=== PATIENT | male | born 1975 | race Two or more races ===

== ENCOUNTER 2020-10-28 16:02 | Emergency (ER) | payer SELFPAY ==
[2020-10-28 16:14] VITALS: BP 143/88; PULSE 96; RESP 16; TEMP 36.6; O2SAT 98; BMI 31.9
--- NOTE | 2020-10-28 17:51 | ED_ITS ---
HPI - General Adult General Chief complaint: General Medical Stated complaint: toe nail inj Time Seen by Provider: 10/28/20 17:51 History of Present Illness HPI narrative: Patient complains of left toe pain after arm ripping off his toenail while running, no other injury Related Data Allergies Allergy/AdvReac Type Severity Reaction Status Date / Time No Known Allergies Allergy Unverified 11/25/19 14:46 Review of Systems Review of Systems: Positive for left toenail pain Negative is no neck pain no back pain no numbness weakness or tingling no lacerations no joint pains Yes all other systems are reviewed and are negative [facility] Past Medical History Source: nursing notes reviewed Social History Social History Advance Directives: No Advance Directives Information Provided: No Physical Exam Vital Signs: Vital Signs: Last Vital Signs Temp 97.8 F 10/28/20 16:14 Pulse 96 10/28/20 16:14 Resp 16 10/28/20 16:14 BP 143/88 H 10/28/20 16:14 Pulse Ox 98 10/28/20 16:14 Body Mass Index 31.9 General appearance no distress Head is normocephalic atraumatic Neck is supple Respiratory no distress Extremities full range of motion x4 Left big toe has the distal aspect of the nail partially avulsed and it is loose, otherwise there is full range of motion in the toe it is neurovascular intact and there is no bony tenderness Course Course Course Narrative: Partially avulsed left toenail Anesthesia is 6 cc of 1% lidocaine digital block The loose piece of the toenail was bent back with a forceps and trimmed with scissors, the proximal part of the nail was attached normally and left in place and a dressing was applied Discharge Plan Discharge Clinical Impression: Nail avulsion Patient Disposition: Home, Self-Care Additional Instructions: The left toenail was partially torn off so I numbed up the toe and then removed all loose pieces of the nail, a new nail should grow from underneath Keep bandaged and change the bandage every day Return any time for redness swelling pain any worse condition any concerns Follow with lead programmer as needed Referrals: Jose Manuel Hernandez DPM [Physician] - 2 days Stand Alone Forms: Work/School Release
[2020-10-28] MEDS: Lidocaine HCl 1 % MPF 5 ML VIAL SUBCUT ×2 (18:33)
== END 2020-10-28 18:59 | disposition home or self-care (01) ==
PROVIDERS: Emergency Provider Internal Medicine
DX: S91.202A Unspecified open wound of left great toe with damage to nail, initial encounter (principal); X50.3XXA Overexertion from repetitive movements, initial encounter; Y93.02 Activity, running; Y92.9 Unspecified place or not applicable; Y99.9 Unspecified external cause status
CPT/HCPCS: 11730; 99283; 99284

== ENCOUNTER 2020-11-26 02:32 | Emergency (ER) | payer OTHER, BC, SELFPAY ==
--- NOTE | ~2020-11-26 | XR_ITS ---
EXAMINATION: XR CHEST XR RIBS, RIGHT CLINICAL INFORMATION: Right rib injury COMPARISON: 11/22/2017 TECHNIQUE: AP and lateral views of the chest. 3 views of the right ribs. FINDINGS: Lung volumes are symmetric. No focal consolidation is seen. No evidence of pneumothorax, pleural effusion, or pulmonary edema. The cardiomediastinal contour is unremarkable. No displaced rib fracture is seen. XR/XR ribs RT 2V IMPRESSION: No acute findings identified.
--- NOTE | ~2020-11-26 | XR_ITS ---
EXAMINATION: XR CHEST XR RIBS, RIGHT CLINICAL INFORMATION: Right rib injury COMPARISON: 11/22/2017 TECHNIQUE: AP and lateral views of the chest. 3 views of the right ribs. FINDINGS: Lung volumes are symmetric. No focal consolidation is seen. No evidence of pneumothorax, pleural effusion, or pulmonary edema. The cardiomediastinal contour is unremarkable. No displaced rib fracture is seen. XR/XR chest 2V IMPRESSION: No acute findings identified.
[2020-11-26 02:40] VITALS: BP 140/72; BP 145/94; PULSE 81; PULSE 87; RESP 16; TEMP 36.9; O2SAT 98; BMI 30.3
--- NOTE | 2020-11-26 02:45 | ED_ITS ---
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 weighing 225, and he heard a pop to his right ribs MD elicited complaint: back pain and back injury Onset (ago): hour(s) Timing: constant Severity: mild Quality: sharp Radiation: none Exacerbating factors: none Related Data Previous Rx's Medication Instructions Recorded naproxen 500 mg tablet (Naprosyn) 500 mg PO BID #20 tab 11/26/20 Allergies Allergy/AdvReac Type Severity Reaction Status Date / Time No Known Allergies Allergy Unverified 11/25/19 14:46 Review of Systems Constitutional: Constitutional: Reports no additional constitutional complaints Eyes: Eyes: Reports no additional eye complaints ENT: Denies dizziness Cardiovascular: Cardiovascular: Reports no additional cardiovascular complaints Respiratory: Respiratory: Reports as per HPI Gastrointestinal: Gastrointestinal: Reports no additional gastrointestinal complaints Musculoskeletal: Musculoskeletal: Reports no additional musculoskeletal complaints Integumentary/Breasts: Skin/Breast: Denies rash Neurologic: Reports system reviewed and no additional complaints, except as documented, Denies dizziness and Denies Sensory deficit (Neuro) Psychiatric: Psychiatric: Denies anxiety [facility] Social History Social History Advance Directives: No Physical Exam Vital Signs: Vital Signs: Last Vital Signs Temp 98.4 F 11/26/20 02:40 Pulse 87 11/26/20 02:40 Resp 16 11/26/20 02:40 BP 145/94 H 11/26/20 02:40 Pulse Ox 98 11/26/20 02:40 Body Mass Index 30.3 Const: General: healthy appearing Nutritional Appearance: average body habitus Orientation/consciousness: oriented to person and patient oriented x3 Limitations: no limitations HENMT: Head: Yes normal to inspection Ears: external ears normal General nose exam: Normal external nose present Mouth: Normal oral and palatal mucosa present and oropharynx normal Throat: Yes posterior oropharynx normal Eyes: General: appearance normal, both eyes and all related structures Neck: Other: supple Neck: Yes normal visual inspection Chest: Other: right chest tender to palpation no crepitance Resp: Auscultation: clear to auscultation bilaterally Cardio: Jugular venous distension: no JVD Rate: regular rate Rhythm: regular rhythm Heart sounds: S1 normal heart sound present and S2 normal heart sound present GI: Inspection: Yes normal to inspection Palpation (GI): Soft to palpation, nontender and No hepatosplenomegaly present Auscultation: normal bowel sounds : General: Yes no CVA tenderness Back/Spine/Pelvis: Back: no CVA tenderness Skin: General skin exam: no rashes or lesions noted Neuro: General: oriented to person and patient oriented x3 Cranial nerves: Yes CN's II-XII intact bilaterally Motor exam (neuro): 5/5 motor strength present throughout Sensory Exam: No Sensory deficit (Neuro) Extrem: General: Yes normal to inspection Psych: Appearance: grossly normal Course Reevaluation(s) Reevaluation #1: no rib fractures or PTX, will dc on NSAIDS Time: 04:42 [facility] - Back Pain/Injury Imaging Data Chest x-ray: Radiologist's impression: IMPRESSION: No acute findings identified.? right ribs: Radiologist's impression: IMPRESSION: No acute findings identified.? Discharge Plan Discharge Clinical Impression: Atypical chest pain Chest wall muscle strain Qualifiers: Encounter type: initial encounter Qualified Code(s): S29.011A - Strain of musc le and tendon of front wall of thorax, initial encounter Patient Disposition: Home, Self-Care Instructions: Chest Wall Pain (ED) Prescriptions: New naproxen [Naprosyn] 500 mg tablet 500 mg PO BID Qty: 20 RF: 0 Referrals: Physician,Unknown [Primary Care Provider] - 5 days
[2020-11-26] MEDS: Ketorolac Tromethamine 60 MG/2 ML VIAL IM (02:56)
[2020-11-26 05:23] VITALS: BP 132/105; PULSE 72; O2SAT 98
== END 2020-11-26 05:26 | disposition home or self-care (01) ==
PROVIDERS: Emergency Provider Emergency Medicine
DX: R07.9 Chest pain, unspecified (principal); R07.81 Pleurodynia; Z79.899 Other long term (current) drug therapy
CPT/HCPCS: 71046; 71100; 96372; 99284; J1885

== ENCOUNTER → 2020-11-28 10:06 | Outpatient (BNVA) | payer OTHER, SELFPAY | PROVIDERS: Visit Provider Internal Medicine | DX: S29.011A Strain of muscle and tendon of front wall of thorax, initial encounter (principal); X50.3XXA Overexertion from repetitive movements, initial encounter; X50.1XXA Overexertion from prolonged static or awkward postures, initial encounter | CPT/HCPCS: 99203 ==

== ENCOUNTER → 2020-12-05 08:00 | Outpatient (BNVA) | payer OTHER, SELFPAY | PROVIDERS: Visit Provider Internal Medicine | DX: R07.89 Other chest pain (principal) | CPT/HCPCS: 99213 ==

== ENCOUNTER 2020-12-18 07:50 | Outpatient (REF) | payer OTHER, SELFPAY ==
--- NOTE | ~2020-12-18 | MR_ITS ---
EXAMINATION: MR ANGIOGRAPHY CHEST WITH CONTRAST CLINICAL INFORMATION: Pulling injury November 2020. Right-sided chest wall stabbing pain. COMPARISON: Previous right rib x-rays 11/26/2020. TECHNIQUE: The routine chest MRA protocol without and with contrast was performed. Magnevist 100 mL was administered. The images were reviewed and post processed on a dedicated 3-D workstation. FINDINGS: The lungs are clear. The mediastinum is normal. There is no pleural effusion or pleural thickening. No chest wall mass or enlarged axillary lymph nodes are seen. No abnormal signal in the chest wall or fluid collection is seen. There is a 1 x 1.5 cm probable right renal cyst. Images through the upper abdomen are otherwise unremarkable. Bony structures are unremarkable. MR/MR chest wo con IMPRESSION: No chest wall mass or abnormal signal seen.
== END 2020-12-18 07:51 | disposition home or self-care (01) ==
LOC: HO.MRI 07:50
PROVIDERS: Visit Provider Internal Medicine
DX: R07.9 Chest pain, unspecified (principal)
CPT/HCPCS: 71550

== ENCOUNTER → 2020-12-21 07:54 | Outpatient (BNVA) | payer OTHER, SELFPAY | PROVIDERS: Visit Provider Internal Medicine | DX: S29.011D Strain of muscle and tendon of front wall of thorax, subsequent encounter (principal); X58.XXXD Exposure to other specified factors, subsequent encounter; N28.9 Disorder of kidney and ureter, unspecified | CPT/HCPCS: 99213 ==

== ENCOUNTER → 2021-01-05 08:00 | Outpatient (BNVA) | payer OTHER, SELFPAY | PROVIDERS: Visit Provider Internal Medicine | DX: S29.012D Strain of muscle and tendon of back wall of thorax, subsequent encounter (principal); U09.9 Post COVID-19 condition, unspecified | CPT/HCPCS: 99213 ==

== ENCOUNTER → 2021-01-12 15:39 | Outpatient (BNVA) | payer OTHER, SELFPAY | PROVIDERS: Visit Provider Physician Assistant | DX: S29.011D Strain of muscle and tendon of front wall of thorax, subsequent encounter (principal); X58.XXXD Exposure to other specified factors, subsequent encounter | CPT/HCPCS: 99213 ==

== ENCOUNTER 2021-01-17 11:00 | Outpatient (RCR) | payer OTHER, SELFPAY ==
--- NOTE | 2021-01-05 14:39 | MHC.PT.EP ---
[facility] [place] Office [place] Office [place] Office [address] [facility] [address] [phone] F: [phone] F: [phone] F: [phone] F: [phone] Physical Therapy Plan of Care Date of Evaluation: Date of Surgery: Diagnosis: Chest wall strain Assessment: Pt is a 45yo M who presents to PT s/p getting injured at work on 11/26/20, involving his R arm getting pulled forward. He presents today with current impairments in pain in R ribs/serratus region, decreased thoracic ROM all planes, decreased R shoulder ROM, (+) TTP R rib intercostals and serratus anterior, and impaired posture. He is limited functionally by bending, twisting, coughing, prolonged sitting, and sleeping. He had CXR, rib xray and rib MRI which were all negative. His signs and symptoms may be consistent with a serratus strain. He is an excellent candidate for skilled PT services to address current impairments in order to facilitate return to PLOF. He will benefit from skilled PT services 2x/week for 4 weeks and will be reassessed at that time. Frequency and Duration: The patient will be seen 2x/week for 4 weeks Short Term Goals: Pt will be I with HEP to promote self management of symptoms Pt will improve thoracic rotation by 25% Penitentiary Goals: Pt will demonstrate full ROM throughout thoracic spine Pt will tolerate sitting > 30 min without pain Pt will demonstrate improvements in functional mobility as evidenced by statistically significant improvement in SPADI outcome measure Treatment Plan: Modalities to reduce pain, spasms and effusion. Manual therapy to restore motion and function. Therapeutic exercise to improve strength and flexibility. Neuromuscular re-education for posture and balance. Therapeutic activities to return to functional activities of daily living. Electronically signed by: Makenna Ascencio, PT, DPT Please sign and return to therapist. Thank you for your referral.
--- NOTE | 2021-01-26 11:38 | MHC.PT.DC ---
[facility] [place] Office [place] Office [place] Office [address] [facility] [address] [phone] F: [phone] F: [phone] F: [phone] F: [phone] Physical Therapy Discharge Report Diagnosis: Chest wall strain Date of Surgery: Date of Evaluation: 01/05/21 Date of Discharge: 01/26/21 Treatments to Date: 4 Cancellations to Date: No Shows to Date: 3 Discharge Status: Improved Function Independent with HEP Patient Elected to Stop Visit Non-compliance Discharge Summary: Pt'S LAST ATTENDED APPT WAS 01/17/21 AND HE DEMON SIGNIF PROGRESS W EXER, FUNCTIONAL MOB, POSTURE, AND HE NOTED DECR PAIN OVERALL- HE STATED HE WAS EAGER 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 Pt DID NOT DISPLAY ANY ADVERSE RESPONSES TO EXEXRCISES AND HE DEMON MORE NATURAL GAIT W UEs EASE/ SWING ON TM AND WAS ABLE TO PERFORM PROGRESSIVE EXER FOR IMPROVING MID BACK MOBILITY. WE WERE UNABLE TO PERFORM A REASSESSMENT Pt HAS NOT ATTENDED LAST FEW SCHED APPTS, AND HAS NOT RETURNED OUR PHONE CALLS. Electronically signed by: Kamilla Schmidt,PT Please sign and return to therapist. Thank you for your referral.
== END 2021-01-26 11:39 | disposition home or self-care (01) ==
LOC: HO.PT 11:00
PROVIDERS: Visit Provider Internal Medicine
DX: S29.011D Strain of muscle and tendon of front wall of thorax, subsequent encounter (principal)
CPT/HCPCS: 97110; 97140; 97161

== ENCOUNTER → 2021-01-22 07:55 | Outpatient (BNVA) | payer OTHER, SELFPAY | PROVIDERS: Visit Provider Internal Medicine | DX: S29.011D Strain of muscle and tendon of front wall of thorax, subsequent encounter (principal); X58.XXXD Exposure to other specified factors, subsequent encounter | CPT/HCPCS: 99213 ==

== ENCOUNTER → 2021-01-29 08:12 | Outpatient (BNVA) | payer OTHER, SELFPAY | PROVIDERS: Visit Provider Internal Medicine | DX: S29.011D Strain of muscle and tendon of front wall of thorax, subsequent encounter (principal); X58.XXXD Exposure to other specified factors, subsequent encounter | CPT/HCPCS: 99213 ==

== ENCOUNTER 2021-04-05 01:23 | Emergency (ER) | payer BC, SELFPAY ==
--- NOTE | ~2021-04-05 | XR_ITS ---
EXAMINATION: XR CHEST CLINICAL INFORMATION: Chest pain COMPARISON: 11/26/2020 TECHNIQUE: Frontal view of the chest was obtained. FINDINGS: Cardiac leads overlie the chest. The lungs are well expanded. There is no focal consolidation, edema, or effusion. No pneumothorax. The cardiomediastinal silhouette is within normal limits. No acute osseous abnormality. XR/XR chest 1V IMPRESSION: Clear lungs.
[2021-04-05 01:25] VITALS: BP 161/99; PULSE 77; RESP 18; TEMP 36.6; O2SAT 98; BMI 31.1
[2021-04-05 01:56] LABS: COVID-19 Test Negative (Negative); IDNOW Serial# 9DD0AD1C
[2021-04-05 02:15] VITALS: BP 159/102; PULSE 76; RESP 12; O2SAT 100
--- NOTE | 2021-04-05 02:20 | ECG_ITS ---
Test Reason : CHEST PAIN Blood Pressure : / mmHG Vent. Rate : 070 BPM Atrial Rate : 070 BPM P-R Int : 146 ms QRS Dur : 090 ms QT Int : 392 ms P-R-T Axes : 060 079 067 degrees QTc Int : 423 ms Normal sinus rhythm with sinus arrhythmia Normal ECG When compared with ECG of 26-FEB-2013 10:08, No significant change was found Referred By: Generic ED Physician Electronically Signed By:HANNA UMANA MD
--- NOTE | 2021-04-05 02:23 | ED_ITS ---
HPI - General Adult General Chief complaint: General Medical Stated complaint: chest pain Time Seen by Provider: 04/05/21 02:23 Source: patient Mode of arrival: ambulatory Limitations: no limitations History of Present Illness HPI narrative: Patient with chest pain intermittent for 3 days, with some shortness of breath and dizziness. Patient with no history of heart problems. No chest pain with exertion. Pain is substernal has some pleuritic nature to the pain Onset (ago): day(s) Radiation: non-radiation Severity: moderate Quality: aching Pain Consistency: intermittent Associated symptoms: nausea/vomiting and weakness Related Data Previous Rx's Medication Instructions Recorded naproxen 500 mg tablet (Naprosyn) 500 mg PO BID #20 tab 11/26/20 naproxen 500 mg tablet (Naprosyn) 500 mg PO BID #20 tab 04/05/21 Allergies Allergy/AdvReac Type Severity Reaction Status Date / Time No Known Allergies Allergy Unverified 11/25/19 14:46 Review of Systems Verdana 4l Constitutional: Verdana 4d Constitutional: Verdana 4d Verdana 4d Reports no additional constitutional complaints Verdana 4l Eyes: Verdana 4d Verdana 4d Eyes: Verdana 4d Reports no additional eye complaints Verdana 4l ENT: Verdana 4d Denies dizziness Verdana 4l Cardiovascular: Verdana 4d Cardiovascular: Verdana 4d Verdana 4d Reports no additional cardiovascular complaints Verdana 4l Respiratory: Verdana 4d Verdana 4d Respiratory: Verdana 4d Reports as per HPI Verdana 4l Gastrointestinal: Verdana 4d Gastrointestinal: Verdana 4d Verdana 4d Reports no additional gastrointestinal complaints Verdana 4l Musculoskeletal: Verdana 4d Musculoskeletal: Verdana 4d Verdana 4d Reports no additional musculoskeletal complaints Verdana 4l Integumentary/Breasts: Verdana 4d Skin/Breast: Verdana 4d Verdana 4d Denies rash Verdana 4l Neurologic: Verdana 4d Reports system reviewed and no additional complaints, except as documented, Denies dizziness and Denies Sensory deficit (Neuro) Verdana 4l Psychiatric: Verdana 4d Verdana 4d Psychiatric: Verdana 4d Denies anxiety PMFSH Social History Social History Advance Directives: No Physical Exam Verdana 4l Vital Signs: Verdana 4d Verdana 4d Vital Signs: Verdana 4d Verdana 4Bd Last Vital Signs Verdana 4d Escalation Engineer New 4d Escalation Engineer New 4d Temp 97.9 F 04/05/21 01:25 Escalation Engineer New 4d Pulse 20 L 04/05/21 03:04 Escalation Engineer New 4d Resp 12 04/05/21 02:15 BP 162/105 H 04/05/21 03:04 Pulse Ox 100 04/05/21 02:15 BMI result Body Mass Index 31.1 Const: General: healthy appearing Nutritional Appearance: average body habitus Orientation/consciousness: oriented to person and patient oriented x3 Limitations: no limitations HENMT: Head: Yes normal to inspection Ears: external ears normal General nose exam: Normal external nose present Mouth: Normal oral and palatal mucosa present and oropharynx normal Throat: Yes posterior oropharynx normal Eyes: General: appearance normal, both eyes and all related structures Neck: Other: supple Neck: Yes normal visual inspection Chest: Other: reproducible pain on palpation to sternum Resp: Auscultation: clear to auscultation bilaterally Cardio: Jugular venous distension: no JVD Rate: regular rate Rhythm: regular rhythm Heart sounds: S1 normal heart sound present and S2 normal heart sound present GI: Inspection: Yes normal to inspection Palpation (GI): Soft to palpation, nontender and No hepatosplenomegaly present Auscultation: normal bowel sounds : General: Yes no CVA tenderness Back/Spine/Pelvis: Back: no CVA tenderness Skin: General skin exam: no rashes or lesions noted Neuro: General: oriented to person and patient oriented x3 Cranial nerves: Yes CN's II-XII intact bilaterally Motor exam (neuro): 5/5 motor strength present throughout Sensory Exam: No Sensory deficit (Neuro) Extrem: General: Yes normal to inspection Psych: Appearance: grossly normal Course Reevaluation(s) Reevaluation #1: Patient with a few days of chest pain, currently has a normal EKG and troponin and ddimer. No evidence of pathology on CXR. He has reproducible pain on chest palpation, will dc on NSAIDS and have patient follow up with PMD Time: 04:28 Medical Decision Making Lab Data Result diagrams: 04/05/21 02:29 04/05/21 02:29 Labs: Lab Results 01/04/05/21 04/05/21 Range/Units 01:39 02:29 02:29 WBC 8.5 (4.8-10.8) X10*3/uL RBC 4.45 L (4.60-5.80) X10*6/uL Hgb 13.6 L (14.0-18.0) g/dl Hct 40.8 L (42.0-52.0) % MCV 91.7 (80.0-98.0) fL MCH 30.6 (27.0-33.0) pg MCHC 33.3 (31.0-36.0) g/dl RDW 13.2 (11.0-16.0) % Plt Count 321 (160-400) X10*3/uL MPV 9.1 L (9.4-12.4) fL Immature Gran % (Auto) 0.2 (0.0-0.4) % Neut % (Auto) 55.1 (45-73) % Lymph % (Auto) 34.8 (20-40) % [place] % (Auto) 8.0 (2-11) % Eos % (Auto) 1.4 (0-4) % Baso % (Auto) 0.5 (0-2) % Lymph # (Auto) 3.0 (1.2-4.9) X10*3/uL [place] # (Auto) 0.7 (0.1-1.2) X10*3/uL Eos # (Auto) 0.1 (0.0-0.4) X10*3/uL Baso # (Auto) 0.0 (0.0-0.2) X10*3/uL Abs Immat Gran (auto) 0.02 (0.00-0.03) X10*3/uL Absolute Neuts (auto) 4.7 (2.0-8.3) x10*3/uL Absolute Nucleated RBC 0.000 (0.0-0.012) X10*3/uL Nucleated RBC % (auto) 0.0 (0.0-0.2) /100WBC D-Dimer High Sensitivty NG/ML Sodium 140 (135-145) mmol/L Potassium 3.6 (3.3-5.1) mmol/L Chloride 104 (96-108) mmol/L Carbon Dioxide 25 (22-29) mmol/L Anion Gap 15 (12-20) BUN 15 (9-16) mg/dL Creatinine 0.98 (0.5-1.4) mg/dL Estim Creat Clear Calc 96.6 Estimated GFR > 60 Random Glucose 91 (60-115) mg/dL Calcium 9.8 (8.4-10.2) mg/dL Troponin I High Sens (<3.5-35.0) ng/L COVID-19 (LEONARD) Negative (Negative) COVID-19 Clin Com See Note 04/05/21 04/05/21 Range/Units 02:29 02:30 WBC (4.8-10.8) X10*3/uL RBC (4.60-5.80) X10*6/uL Hgb (14.0-18.0) g/dl Hct (42.0-52.0) % MCV (80.0-98.0) fL MCH (27.0-33.0) pg MCHC (31.0-36.0) g/dl RDW (11.0-16.0) % Plt Count (160-400) X10*3/uL MPV (9.4-12.4) fL Immature Gran % (Auto) (0.0-0.4) % Neut % (Auto) (45-73) % Lymph % (Auto) (20-40) % [place] % (Auto) (2-11) % Eos % (Auto) (0-4) % Baso % (Auto) (0-2) % Lymph # (Auto) (1.2-4.9) X10*3/uL [place] # (Auto) (0.1-1.2) X10*3/uL Eos # (Auto) (0.0-0.4) X10*3/uL Baso # (Auto) (0.0-0.2) X10*3/uL Abs Immat Gran (auto) (0.00-0.03) X10*3/uL Absolute Neuts (auto) (2.0-8.3) x10*3/uL Absolute Nucleated RBC (0.0-0.012) X10*3/uL Nucleated RBC % (auto) (0.0-0.2) /100WBC D-Dimer High Sensitivty < 150 NG/ML Sodium (135-145) mmol/L Potassium (3.3-5.1) mmol/L Chloride (96-108) mmol/L Carbon Dioxide (22-29) mmol/L Anion Gap (12-20) BUN (9-16) mg/dL Creatinine (0.5-1.4) mg/dL Estim Creat Clear Calc Estimated GFR Random Glucose (60-115) mg/dL Calcium (8.4-10.2) mg/dL Troponin I High Sens < 3.5 (<3.5-35.0) ng/L COVID-19 (LEONARD) (Negative) COVID-19 Clin Com Imaging Data Chest x-ray: Radiologist's impression: FINDINGS: Cardiac leads overlie the chest. The lungs are well expanded. There is no focal consolidation, edema, or effusion. No pneumothorax. The cardiomediastinal silhouette is within normal limits. No acute osseous abnormality. XR/XR chest 1V IMPRESSION: Clear lungs. ? ECG Data Attestation: I personally reviewed and interpreted this ECG as follows: Interpretation: normal sinus rate of 70, no st or twave changes Discharge Plan Discharge Clinical Impression: Chest pain, Acute costochondritis Instructions: Costochondritis (ED), Noncardiac Chest Pain (ED) Additional Instructions: Return for worsening chest pain, must follow up with your doctor in 3 days Prescriptions: New naproxen [Naprosyn] 500 mg tablet 500 mg PO BID Qty: 20 0RF No Action naproxen [Naprosyn] 500 mg tablet 500 mg PO BID Qty: 20 0RF Referrals: Physician,Unknown J [Primary Care Provider] - 3 days (call your doctor for follow up of your chest pain)
[2021-04-05 02:33] LABS: Basophils Percent Auto 0.5 % (0-2); Eosinophils Absolute Auto 0.1 X10*3/uL (0.0-0.4); Eosinophils Percent Auto 1.4 % (0-4); Hematocrit 40.8 % (42.0-52.0); Hemoglobin 13.6 g/dl (14.0-18.0); Imm Gran Abs Auto 0.02 X10*3/uL (0.00-0.03); Imm Gran Pct Auto 0.2 % (0.0-0.4); Lymphocytes Percent Auto 34.8 % (20-40); Mean Corpuscular HGB Conc 33.3 g/dl (31.0-36.0); Mean Corpuscular Hemoglobin 30.6 pg (27.0-33.0); Mean Corpuscular Volume 91.7 fL (80.0-98.0); Mean Platelet Volume 9.1 fL (9.4-12.4); Monocytes Absolute Auto 0.7 X10*3/uL (0.1-1.2); Neutrophils Absolute Auto 4.7 x10*3/uL (2.0-8.3); Neutrophils Percent Auto 55.1 % (45-73); Platelet Count 321 X10*3/uL (160-400); Red Blood Count 4.45 X10*6/uL (4.60-5.80); Red Cell Distribution Width 13.2 % (11.0-16.0); White Blood Count 8.5 X10*3/uL (4.8-10.8)
[2021-04-05 02:34] LABS: MANUAL DIFF FLAG NO
[2021-04-05 02:44] LABS: D Dimer High Sensitivity < 150 NG/ML
[2021-04-05 02:58] LABS: Anion Gap 15 (12-20); Blood Urea Nitrogen 15 mg/dL (9-16); Calcium 9.8 mg/dL (8.4-10.2); Carbon Dioxide 25 mmol/L (22-29); Chloride 104 mmol/L (96-108); Creatinine Clr Calc Pharmacy 96.6; Estimated Glomerular Filt Rate > 60; Glucose Random 91 mg/dL (60-115); Potassium 3.6 mmol/L (3.3-5.1); Sodium 140 mmol/L (135-145)
[2021-04-05] MEDS: Aspirin 81 MG TAB.CHEW 162 MG PO (03:01)
[2021-04-05 03:04] VITALS: BP 162/105; PULSE 20
[2021-04-05] MEDS: Nitroglycerin 0.4 MG TAB.SUBL SUBLINGUAL (03:04)
[2021-04-05 03:10] LABS: Troponin-I High Sensitivity < 3.5 ng/L (<3.5-35.0)
[2021-04-05 04:56] VITALS: BP 140/93; PULSE 68; RESP 14; O2SAT 99
== END 2021-04-05 05:08 | disposition home or self-care (01) ==
PROVIDERS: Emergency Provider Emergency Medicine
DX: R07.9 Chest pain, unspecified (principal); M94.0 Chondrocostal junction syndrome [Tietze]; Z20.822 Contact with and (suspected) exposure to COVID-19
CPT/HCPCS: 36415; 71045; 80048; 84484; 85025; 85379; 87635; 93005; 99284

== ENCOUNTER 2021-08-23 02:03 | Emergency (ER) | payer BC, SELFPAY ==
--- NOTE | ~2021-08-23 | XR_ITS ---
EXAMINATION: XR CHEST CLINICAL INFORMATION: Chest pain COMPARISON: 04/05/2021 TECHNIQUE: Frontal view of the chest was obtained. FINDINGS: No significant abnormality is noted involving the heart, lungs, mediastinum, bony thorax or soft tissues. XR/XR chest 1V IMPRESSION: Unremarkable examination.
--- NOTE | 2021-08-23 02:11 | ECG_ITS ---
Test Reason : cp Blood Pressure : / mmHG Vent. Rate : 081 BPM Atrial Rate : 081 BPM P-R Int : 132 ms QRS Dur : 086 ms QT Int : 376 ms P-R-T Axes : 048 064 066 degrees QTc Int : 436 ms Normal sinus rhythm Normal ECG When compared with ECG of 05-APR-2021 02:35, No significant change was found Referred By: Generic ED Physician Electronically Signed By:Carson Toure
[2021-08-23 02:17] VITALS: BP 147/101; PULSE 78; RESP 18; TEMP 36.9; O2SAT 98; BMI 30.7
[2021-08-23 02:33] LABS: MANUAL DIFF FLAG NO
[2021-08-23 02:34] LABS: Basophils Percent Auto 0.5 % (0-2); Eosinophils Absolute Auto 0.1 X10*3/uL (0.0-0.4); Eosinophils Percent Auto 1.6 % (0-4); Hematocrit 40.4 % (42.0-52.0); Hemoglobin 13.5 g/dl (14.0-18.0); Imm Gran Abs Auto 0.02 X10*3/uL (0.00-0.03); Imm Gran Pct Auto 0.2 % (0.0-0.4); Lymphocytes Percent Auto 36.9 % (20-40); Mean Corpuscular HGB Conc 33.4 g/dl (31.0-36.0); Mean Corpuscular Hemoglobin 30.6 pg (27.0-33.0); Mean Corpuscular Volume 91.6 fL (80.0-98.0); Mean Platelet Volume 9.2 fL (9.4-12.4); Monocytes Absolute Auto 0.7 X10*3/uL (0.1-1.2); Monocytes Percent Auto 8.2 % (2-11); Neutrophils Absolute Auto 4.3 x10*3/uL (2.0-8.3); Neutrophils Percent Auto 52.6 % (45-73); Platelet Count 326 X10*3/uL (160-400); Red Blood Count 4.41 X10*6/uL (4.60-5.80); White Blood Count 8.2 X10*3/uL (4.8-10.8)
[2021-08-23 02:53] LABS: COVID-19 Test Negative (Negative)
[2021-08-23 03:02] LABS: Anion Gap 14 (12-20); Blood Urea Nitrogen 17 mg/dL (9-16); Calcium 9.3 mg/dL (8.4-10.2); Carbon Dioxide 23 mmol/L (22-29); Chloride 107 mmol/L (96-108); Creatinine Clr Calc Pharmacy 88.7; Estimated Glomerular Filt Rate > 60; Glucose Random 101 mg/dL (60-115); Potassium 3.8 mmol/L (3.3-5.1); Sodium 140 mmol/L (135-145)
[2021-08-23 03:07] LABS: Troponin-I High Sensitivity < 3.5 ng/L (<3.5-35.0)
[2021-08-23 03:14] VITALS: BP 148/96; PULSE 79; RESP 16; O2SAT 98
--- NOTE | 2021-08-23 03:47 | ED.CHESTPAIN ---
HPI - Chest Pain General Chief Complaint: Chest Pain Stated Complaint: chest pain, hands going numb, sob Time Seen by Provider: 08/23/21 03:42 Source: patient Mode of arrival: ambulatory Limitations: no limitations History of Present Illness HPI narrative: Patient comes to the emergency room complaining of chest pain that started at work approximately 6 hours ago. Patient states the chest pain is worse when he leans forward. Patient states that yesterday when the pain started, it started mostly with cough, trying to clear up sputum from his throat. Related Data Previous Rx's Medication Instructions Recorded naproxen 500 mg tablet (Naprosyn) 500 mg PO BID #20 tabs 11/26/20 naproxen 500 mg tablet (Naprosyn) 500 mg PO BID #20 tabs 04/05/21 Allergies Allergy/AdvReac Type Severity Reaction Status Date / Time No Known Allergies Allergy Verified 08/23/21 02:17 Review of Systems Review of Systems: Constitutional : No Weight loss, No Fever, No Chills, No Night Sweats, No Fatigue, No Malaise ENT/Mouth : No Hearing loss, No Ear Pain, No Nasal Congestion, No Sinus Pain, No Hoarseness, No sore throat, No Rhinorrhea, No Swallowing Difficulty Eyes: No Eye Pain, No Swelling, No Redness, No Foreign Body, No Discharge, No Vision Changes Cardiovascular : Chest pain worse with bending over/leaning forward. No SOB, No Dyspnea on Exertion, No Orthopnea, No Edema, No Palpitations Respiratory : No Cough, No Sputum, No Wheezing, No Smoke Exposure, No Dyspnea Gastrointestinal : No Nausea, No Vomiting, No Diarrhea, No Constipation, No abdominal Pain, No Hematochezia, No Melena Genitourinary : no irregular bleeding, No Dysuria, No Urinary Frequency, No Hematuria, No Urinary Incontinence, No Urgency, No Flank Pain, No Urinary Flow Changes, No Hesitancy Musculoskeletal : No joint pain, No Myalgias, No Joint Swelling Skin : No Skin Lesions, No rash Neuro : No Weakness, No Numbness, No Paresthesias, No Loss of Consciousness, No Dizziness, No Headache Psych : No Anxiety/Panic, No Depression, No SI/HI/AH/VH, No Social Issues, Heme/Lymph: No Bruising, No Bleeding,No Lymphadenopathy Endocrine : No Polyuria, No Polydipsia, No Temperature Intolerance [facility] Social History Social History Advance Directives: No Advance Directives Information Provided: Yes Physical Exam Vital Signs: Vital Signs: Last Vital Signs Temp 98.4 F 08/23/21 04:00 Pulse 64 08/23/21 04:00 Resp 16 08/23/21 04:00 BP 133/88 08/23/21 04:00 Pulse Ox 98 08/23/21 04:00 O2 Del Method 08/23/21 04:00 BMI result Body Mass Index 30.7 Const: Other: Appearance: Alert. Oriented X3. No acute distress. Well-appearing Eyes: Pupils equal, round and reactive to light. ENT: Pharynx normal. Neck: Normal inspection. Neck supple. No lymph nodes noted. No crepitus CVS: Normal heart rate and rhythm. Pulses normal. Normal S1 and S2, reproducible chest pain on palpation over the sternum and left side of the chest Respiratory: No respiratory distress. Breath sounds normal. No Wheezing. No rales Abdomen: Soft and nontender. No rigidity. No distention. Skin: Skin warm and dry. Normal skin color. Normal skin turgor. Extremities: No lower extremity edema. No Lacerations. No Rash Neuro: Oriented X 3. No motor deficit. No sensory deficit. Moving all extremities. No slurred speech. CN 2 through 12 grossly intact Psych: calm, cooperative, normal affect Course Course Course Narrative: EKG and troponin negative, chest x-ray negative. In 1 hour will repeat troponin again. Patient has had multiple ED visits for atypical chest pain and costochondritis. At this time, chest pain etiology is likely musculoskeletal rather than cardiac. Troponin x2 negative. Discussed with patient. Patient will follow up with his primary care physician. Patient may be a candidate for a stress test MDM - Chest Pain Lab Data Result diagrams: 08/23/21 02:29 08/23/21 02:29 Labs: Lab Results 08/23/21 08/23/21 08/23/21 Range/Units 02:29 02:29 02:29 WBC 8.2 (4.8-10.8) X10*3/uL RBC 4.41 L (4.60-5.80) X10*6/uL Hgb 13.5 L (14.0-18.0) g/dl Hct 40.4 L (42.0-52.0) % MCV 91.6 (80.0-98.0) fL MCH 30.6 (27.0-33.0) pg MCHC 33.4 (31.0-36.0) g/dl RDW 13.0 (11.0-16.0) % Plt Count 326 (160-400) X10*3/uL MPV 9.2 L (9.4-12.4) fL Immature Gran % (Auto) 0.2 (0.0-0.4) % Neut % (Auto) 52.6 (45-73) % Lymph % (Auto) 36.9 (20-40) % [place] % (Auto) 8.2 (2-11) % Eos % (Auto) 1.6 (0-4) % Baso % (Auto) 0.5 (0-2) % Lymph # (Auto) 3.0 (1.2-4.9) X10*3/uL [place] # (Auto) 0.7 (0.1-1.2) X10*3/uL Eos # (Auto) 0.1 (0.0-0.4) X10*3/uL Baso # (Auto) 0.0 (0.0-0.2) X10*3/uL Abs Immat Gran (auto) 0.02 (0.00-0.03) X10*3/uL Absolute Neuts (auto) 4.3 (2.0-8.3) x10*3/uL Absolute Nucleated RBC 0.000 (0.0-0.012) X10*3/uL Nucleated RBC % (auto) 0.0 (0.0-0.2) /100WBC Sodium 140 (135-145) mmol/L Potassium 3.8 (3.3-5.1) mmol/L Chloride 107 (96-108) mmol/L Carbon Dioxide 23 (22-29) mmol/L Anion Gap 14 (12-20) BUN 17 H (9-16) mg/dL Creatinine 1.06 (0.5-1.4) mg/dL Estim Creat Clear Calc 88.7 Estimated GFR > 60 Random Glucose 101 (60-115) mg/dL Calcium 9.3 (8.4-10.2) mg/dL Troponin I High Sens < 3.5 (<3.5-35.0) ng/L COVID-19 (LEONARD) (Negative) COVID-19 Clin Com 08/23/21 08/23/21 Range/Units 02:29 04:27 WBC (4.8-10.8) X10*3/uL RBC (4.60-5.80) X10*6/uL Hgb (14.0-18.0) g/dl Hct (42.0-52.0) % MCV (80.0-98.0) fL MCH (27.0-33.0) pg MCHC (31.0-36.0) g/dl RDW (11.0-16.0) % Plt Count (160-400) X10*3/uL MPV (9.4-12.4) fL Immature Gran % (Auto) (0.0-0.4) % Neut % (Auto) (45-73) % Lymph % (Auto) (20-40) % [place] % (Auto) (2-11) % Eos % (Auto) (0-4) % Baso % (Auto) (0-2) % Lymph # (Auto) (1.2-4.9) X10*3/uL [place] # (Auto) (0.1-1.2) X10*3/uL Eos # (Auto) (0.0-0.4) X10*3/uL Baso # (Auto) (0.0-0.2) X10*3/uL Abs Immat Gran (auto) (0.00-0.03) X10*3/uL Absolute Neuts (auto) (2.0-8.3) x10*3/uL Absolute Nucleated RBC (0.0-0.012) X10*3/uL Nucleated RBC % (auto) (0.0-0.2) /100WBC Sodium (135-145) mmol/L Potassium (3.3-5.1) mmol/L Chloride (96-108) mmol/L Carbon Dioxide (22-29) mmol/L Anion Gap (12-20) BUN (9-16) mg/dL Creatinine (0.5-1.4) mg/dL Estim Creat Clear Calc Estimated GFR Random Glucose (60-115) mg/dL Calcium (8.4-10.2) mg/dL Troponin I High Sens < 3.5 (<3.5-35.0) ng/L COVID-19 ([facility]ONARD) Negative (Negative) COVID-19 Clin Com See Note Discharge Plan Discharge Clinical Impression: Atypical chest pain Patient Disposition: Home, Self-Care Instructions: Chest Pain (ED), Chest Wall Pain (ED) Additional Instructions: Please follow-up with your primary care physician tomorrow. If you have any worsening or new symptoms, please return to the emergency room or call 911 Prescriptions: No Action naproxen [Naprosyn] 500 mg tablet 500 mg PO BID Qty: 20 0RF naproxen [Naprosyn] 500 mg tablet 500 mg PO BID Qty: 20 0RF
[2021-08-23 04:00] VITALS: BP 133/88; PULSE 64; RESP 16; TEMP 36.9; O2SAT 98
[2021-08-23 04:53] LABS: Troponin-I High Sensitivity < 3.5 ng/L (<3.5-35.0)
== END 2021-08-23 05:13 | disposition home or self-care (01) ==
PROVIDERS: Emergency Provider Emergency Medicine
DX: R07.89 Other chest pain (principal); Z20.822 Contact with and (suspected) exposure to COVID-19
CPT/HCPCS: 36415; 71045; 80048; 84484; 85025; 87635; 93005; 99283; 99284

== ENCOUNTER 2022-09-06 00:17 | Emergency (ER) | payer OTHER, BC, SELFPAY ==
[2022-09-06 00:23] VITALS: BP 149/95; PULSE 86; RESP 16; TEMP 37; O2SAT 100; BMI 26.5
--- NOTE | 2022-09-06 01:04 | ED.GENADULT ---
HPI - General Adult General Chief complaint: General Medical Stated complaint: Pulled groin? Time Seen by Provider: 09/06/22 00:50 Source: patient Mode of arrival: wheelchair Limitations: no limitations History of Present Illness HPI narrative: The emergency room complaining of right inguinal pain and right thigh pain. 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 Patient denies testicular pain or scrotal swelling. Patient denies abdominal pain. Patient states that any movement with the right leg makes it feel worse. Related Data Previous Rx's Medication Instructions Recorded cyclobenzaprine 10 mg tablet 10 mg PO TID PRN muscle spasm #12 09/06/22 tabs ibuprofen 600 mg tablet 600 mg PO Q8H PRN fever or pain 09/06/22 #20 tabs oxycodone 5 mg tablet 5 mg PO BID PRN pain #5 tabs 09/06/22 Allergies Allergy/AdvReac Type Severity Reaction Status Date / Time No Known Allergies Allergy Verified 09/12/21 08:59 Review of Systems Review of Systems: Constitutional : No Weight loss, No Fever, No Chills, No Night Sweats, No Fatigue, No Malaise ENT/Mouth : No Hearing loss, No Ear Pain, No Nasal Congestion, No Sinus Pain, No Hoarseness, No sore throat, No Rhinorrhea, No Swallowing Difficulty Eyes: No Eye Pain, No Swelling, No Redness, No Foreign Body, No Discharge, No Vision Changes Cardiovascular : No Chest Pain, No SOB, No Dyspnea on Exertion, No Orthopnea, No Edema, No Palpitations Respiratory : No Cough, No Sputum, No Wheezing, No Smoke Exposure, No Dyspnea Gastrointestinal : No Nausea, No Vomiting, No Diarrhea, No Constipation, No abdominal Pain, No Hematochezia, No Melena Genitourinary : no irregular bleeding, No Dysuria, No Urinary Frequency, No Hematuria, No Urinary Incontinence, No Urgency, No Flank Pain, No Urinary Flow Changes, No Hesitancy Musculoskeletal : Complaining of right inguinal pain and right inner thigh pain No Myalgias, No Joint Swelling Skin : No Skin Lesions, No rash Neuro : No Weakness, No Numbness, No Paresthesias, No Loss of Consciousness, No Dizziness, No Headache Psych : No Anxiety/Panic, No Depression, No SI/HI/AH/VH, No Social Issues, Heme/Lymph: No Bruising, No Bleeding,No Lymphadenopathy Endocrine : No Polyuria, No Polydipsia, No Temperature Intolerance [facility] Family History Family History (Updated 09/12/21 @ 09:08 by Carmen Guerrero) Mother Hypertension Anxiety Social History Social History (Updated 09/12/21 @ 09:08 by Carmen Guerrero) Alcohol intake: current Alcohol intake frequency: holidays/special occasions only Patient Tobacco Use Status: Current someday Tobacco user Tobacco use type: Cigarette Physical Exam ED Vital Signs: Vital Signs - 24 hr 09/06/22 00:23 Temperature 98.6 F Pulse Rate 86 Respiratory Rate 16 Blood Pressure 149/95 H Pulse Oximetry 100 Oxygen Delivery Method Room Air BMI result Body Mass Index 26.5 Const Other: Appearance: Alert. Oriented X3. No acute distress. Eyes: Pupils equal, round and reactive to light. ENT: Pharynx normal. Neck: Normal inspection. Neck supple. No lymph nodes noted. No crepitus CVS: Normal heart rate and rhythm. Pulses normal. Normal S1 and S2 Respiratory: No respiratory distress. Breath sounds normal. No Wheezing. No rales Abdomen: Soft and nontender. No rigidity. No distention. No palpable inguinal hernias : Patient has no testicular pain, no scrotal swelling or discoloration Skin: Skin warm and dry. Normal skin color. Normal skin turgor. Extremities: No lower extremity edema. No Lacerations. No Rash, pain to palpation over the right inner thigh superiorly. Patient states that abducting the leg does not hurt much but adducting the leg is significantly painful. Neuro: Oriented X 3. No motor deficit. No sensory deficit. Moving all extremities. No slurred speech. CN 2 through 12 grossly intact Psych: calm, cooperative, normal affect Medical Decision Making Medical Decision Making MDM Narrative: -discussed the physical exam with the patient, patient has no scrotal/testicular pain or swelling, testicular torsion very unlikely -patient is unable to bear weight due to pain. Patient likely injured/over stretch the adductor longus muscle. -patient was given 1 dose of IM morphine, cyclobenzaprine, and provided with crutches -patient instructed to follow-up with [facility] as this was a work related injury. Differential Diagnosis Differential Diagnoses: The differential diagnosis associated with the presentation includes (Inguinal ligament injury, over stretch muscle, contusion) Discharge Plan Discharge Clinical Impression: Injury of adductor muscle of thigh Patient Disposition: Home, Self-Care Instructions: Muscle Strain (ED), Groin Strain (ED) Additional Instructions: Please follow-up with work connection and your primary care physician tomorrow. If you have any worsening or new symptoms, please return to the emergency room or call 911 Prescriptions: New oxycodone 5 mg tablet 5 mg PO BID PRN (Reason: pain) Qty: 5 0RF Rx Instructions: Partial Fill upon patient request. Only if ibuprofen does not alleviate pain sufficiently ibuprofen 600 mg tablet 600 mg PO Q8H PRN (Reason: fever or pain) Qty: 20 0RF cyclobenzaprine 10 mg tablet 10 mg PO TID PRN (Reason: muscle spasm) Qty: 12 0RF Referrals: Gilmer Reddy MD [Physician] - 09/06/22 Stand Alone Forms: Work/School Release
[2022-09-06] MEDS: Cyclobenzaprine HCl 10 MG TABLET PO (01:17)
[2022-09-06] MEDS: Morphine Sulfate 2 MG/ML CARTRIDGE IM (01:18)
== END 2022-09-06 01:29 | disposition home or self-care (01) ==
PROVIDERS: Emergency Provider Emergency Medicine
DX: S76.201A Unspecified injury of adductor muscle, fascia and tendon of right thigh, initial encounter (principal); X50.9XXA Other and unspecified overexertion or strenuous movements or postures, initial encounter; Y93.89 Activity, other specified; Y92.9 Unspecified place or not applicable; Y99.0 Civilian activity done for income or pay
CPT/HCPCS: 96372; 99284; J2270

== ENCOUNTER → 2022-09-09 09:37 | Outpatient (BNVA) | payer OTHER, SELFPAY | PROVIDERS: Visit Provider Internal Medicine | DX: S76.20 Unspecified injury of adductor muscle, fascia and tendon of thigh (principal); X50.9XXD Other and unspecified overexertion or strenuous movements or postures, subsequent encounter | CPT/HCPCS: 99203 ==

== ENCOUNTER → 2022-09-13 11:57 | Outpatient (BNVA) | payer OTHER, SELFPAY | PROVIDERS: Visit Provider Internal Medicine | DX: S39.011A Strain of muscle, fascia and tendon of abdomen, initial encounter (principal); X50.9XXA Other and unspecified overexertion or strenuous movements or postures, initial encounter | CPT/HCPCS: 99213 ==

== ENCOUNTER → 2022-09-19 11:37 | Outpatient (BNVA) | payer OTHER, SELFPAY | PROVIDERS: Visit Provider Internal Medicine | DX: S76.20 Unspecified injury of adductor muscle, fascia and tendon of thigh (principal); X50.9XXD Other and unspecified overexertion or strenuous movements or postures, subsequent encounter | CPT/HCPCS: 99213 ==

== ENCOUNTER 2022-09-20 16:49 | Emergency (ER) | payer OTHER, SELFPAY ==
--- NOTE | ~2022-09-20 | XR_ITS ---
EXAMINATION: XR RIBS, RIGHT CLINICAL INFORMATION: Right lower rib pain. COMPARISON: Chest radiograph 08/23/2021. TECHNIQUE: 3 views of the right ribs were obtained. FINDINGS: Lungs are clear. No consolidation, pneumothorax, or pleural effusion. The cardiomediastinal silhouette and pulmonary vasculature are normal. Osseous structures are unremarkable. Ribs are intact. No fractures are identified. XR/XR ribs RT min 3V w CXR1V IMPRESSION: Unremarkable examination.
--- NOTE | ~2022-09-20 | US_ITS ---
EXAMINATION: US ABDOMEN LIMITED CLINICAL INFORMATION: Right upper quadrant pain. COMPARISON: None available. TECHNIQUE: Real-time imaging of the right upper quadrant abdominal viscera. FINDINGS: PANCREAS: Obscured by overlying bowel gas LIVER: Mild diffusely increased hepatic echotexture suggesting mild diffuse fatty infiltration. No focal hepatic lesion. There is no intrahepatic biliary duct dilatation seen. GALLBLADDER: Normal. The gallbladder is physiologically distended without evidence of stones, sludge, polyps, wall thickening or pericholecystic fluid. COMMON BILE DUCT: Normal in caliber measuring 0.3 cm in diameter. RIGHT KIDNEY: 1.5 cm thin septated cyst in the upper pole of the right kidney. No further evaluation of this Bosniak 2 thin septated cyst would be needed. No hydronephrosis. No renal calculi or focal parenchymal lesions. The kidney measures 10.3 cm in maximum dimension. FREE FLUID: None. US/US abdomen limited IMPRESSION: Mild diffuse fatty infiltration of the liver but no focal hepatic lesion or biliary ductal dilatation.
--- NOTE | 2022-09-20 17:48 | ED_ITS ---
HPI - Skin/Abscess/Foreign Bdy General Chief complaint: Abdominal Pain Stated complaint: Qtr size lump on R side, near ribcage. In pain Time Seen by Provider: 09/21/22 00:11 Source: patient, RN notes reviewed and old records reviewed Mode of arrival: ambulatory Limitations: no limitations History of Present Illness HPI narrative: 47-year-old male presents for evaluation of right back pain Patient reports his pain got worse this morning. Describes as a burning and stabbing pain The pain is worse with any kind of movement or palpation to the area The pain does not radiate He reports that he had a previous leg injury in which he ?pulled my right groin. ? Use the urgent care and was given naproxen and ibuprofen for the pain He reports that he has been favoring the right side Denies any nausea vomiting, diarrhea, constipation Denies any difficulty urinating or blood in the urine Patient reports a history of a ?1.5 cm cyst on the right kidney. ? He is concerned that is the cause of his pain today Related Data Previous Rx's Medication Instructions Recorded cyclobenzaprine 10 mg tablet 10 mg PO TID PRN muscle spasm #12 09/06/22 tabs ibuprofen 600 mg tablet 600 mg PO Q8H PRN fever or pain 09/06/22 #20 tabs oxycodone 5 mg tablet 5 mg PO BID PRN pain #5 tabs 09/06/22 methocarbamol 500 mg tablet 500 mg PO QID PRN muscle spasm #20 09/21/22 tabs Allergies Allergy/AdvReac Type Severity Reaction Status Date / Time No Known Allergies Allergy Verified 09/12/21 08:59 Review of Systems Constitutional: Constitutional: Reports as per HPI, Denies chills, Denies fatigue, Denies fever(s) and Denies headache(s) ENT: Denies headache(s) Cardiovascular: Cardiovascular: Denies chest pain and Denies dyspnea Respiratory: Respiratory: Denies cough and Denies dyspnea Gastrointestinal: Gastrointestinal: Denies abdominal pain, Denies constipation and Denies vomiting Genitourinary: Genitourinary: Denies difficulty urinating and Denies dysuria Musculoskeletal: Musculoskeletal: Reports back pain Neurologic: Denies headache(s) and Denies focal weakness Endocrine: Endocrine: Denies fatigue [facility] Family History Family History (Updated 09/12/21 @ 09:08 by Carmen Guerrero) Mother Hypertension Anxiety Social History Social History (Updated 09/12/21 @ 09:08 by Carmen Guerrero) Alcohol intake: current Alcohol intake frequency: holidays/special occasions only Patient Tobacco Use Status: Current someday Tobacco user Tobacco use type: Cigarette Advance Directives: No Advance Directives Information Provided: No Physical Exam Vital Signs: Vital Signs: Last Vital Signs Temp 98 F 09/20/22 17:50 Pulse 93 09/20/22 17:50 Resp 18 09/20/22 17:50 BP 157/116 H 09/20/22 17:53 Pulse Ox 99 09/20/22 17:50 O2 Del Method Room Air 09/20/22 17:50 BMI result Body Mass Index 29.9 Const: General: healthy appearing, comfortable, no acute distress, alert and awake Nutritional Appearance: well nourished Orientation/consciousness: patient oriented x3 HEENT: Head: Yes normocephalic and Yes atraumatic Eyes: Eyelids: Yes eyelids normal Conjunctivae: conjunctivae normal Sclerae: sclerae normal Corneas: corneas normal Pupils: Equal, round and reactive pupils present EOM: EOMs intact bilaterally Neck: Neck: Yes full ROM Resp: Effort & Inspection: normal respiratory effort, able to speak in complete sentences and not labored Cardio: Rate: regular rate Rhythm: regular rhythm GI: Inspection: No distended Palpation (GI): Soft to palpation, not firm, nontender, no guarding and not rigid Auscultation: normoactive bowel sounds Back/Spine/Pelvis: Other: Patient has right thoracic paraspinous muscle tenderness. No overlying skin changes, no palpable deformities. Skin: General skin exam: no rashes or lesions noted and elasticity normal Neuro: General: patient oriented x3 Cranial nerves: Yes Equal, round and reactive pupils present and Yes Bilaterally intact EOM present Cognition (Neuro): normal cognition Course Course Course Narrative: RME: 47yo M w/no sig PMHx c/o R lower rib pain and R CVAT x this AM, worse w/movement, palpation & breathing. deneies trauma, hematuria, dysuria. Patient concerned about 1x1.5cm right renal cyst noted on chest MRI in 2020 which he never followed up for. no chest wall deformity, +R lower rib, +CVAT & RUQ abd ttp. no flail chest HTNsive in triage 157/116 >admits to drinking [employer], not on BP meds, denies ARGUETA/CP Full HPI, ROS and PE to be performed by primary ED provider. Medical Decision Making Medical Decision Making [facility] Narrative: 47-year-old male presents for evaluation of right-sided back pain, his pain is reproducible on exam. He had a very extensive workup including x-rays of the ribs, ultrasound of the right upper quadrant which evaluate of the right renal cyst as well which appears unchanged. His labs and urine are unremarkable. The patient's pain is most likely musculoskeletal in origin. Will treat his pain with methocarbamol. He is working on following up with a PCP Differential Diagnosis Muscle strain Contusion Rib fracture Pneumonia Cholelithiasis Acute cholecystitis Obstructive uropathy Pyelonephritis Lab Data [facility] Lab Attestation statement: I reviewed the patient's lab results. No leukocytosis, no anemia, normal platelets. Chemistries are significant for a very slight elevation of BUN 10 19, no electrolyte abnormalities. 09/20/22 18:59 09/20/22 18:59 Labs: Lab Results 09/20/22 09/20/22 09/20/22 Range/Units 18:59 18:59 18:59 WBC 8.8 (4.8-10.8) X10*3/uL RBC 4.81 (4.60-5.80) X10*6/uL Hgb 14.5 (14.0-18.0) g/dl Hct 44.1 (42.0-52.0) % MCV 91.7 (80.0-98.0) fL MCH 30.1 (27.0-33.0) pg MCHC 32.9 (31.0-36.0) g/dl RDW 13.1 (11.0-16.0) % Plt Count 315 (160-400) X10*3/uL MPV 9.0 L (9.4-12.4) fL Immature Gran % (Auto) 0.3 (0.0-0.4) % Neut % (Auto) 57.3 (45-73) % Lymph % (Auto) 32.3 (20-40) % [place] % (Auto) 7.6 (2-11) % Eos % (Auto) 2.0 (0-4) % Baso % (Auto) 0.5 (0-2) % Lymph # (Auto) 2.9 (1.2-4.9) X10*3/uL [place] # (Auto) 0.7 (0.1-1.2) X10*3/uL Eos # (Auto) 0.2 (0.0-0.4) X10*3/uL Baso # (Auto) 0.0 (0.0-0.2) X10*3/uL Abs Immat Gran (auto) 0.03 (0.00-0.03) X10*3/uL Absolute Neuts (auto) 5.1 (2.0-8.3) x10*3/uL Absolute Nucleated RBC 0.000 (0.0-0.012) X10*3/uL Nucleated RBC % (auto) 0.0 (0.0-0.2) /100WBC PT 11.4 (10.0-13.1) SEC INR 1.0 (0.9-1.1) Sodium 138 (135-145) mmol/L Potassium 4.4 (3.3-5.1) mmol/L Chloride 105 (96-108) mmol/L Carbon Dioxide 25 (22-29) mmol/L Anion Gap 12 (12-20) BUN 19 H (9-16) mg/dL Creatinine 1.06 (0.5-1.4) mg/dL Estim Creat Clear Calc 86.6 Estimated GFR > 60 Random Glucose 95 (60-115) mg/dL Calcium 9.8 (8.4-10.2) mg/dL Total Bilirubin 0.3 (0.0-1.0) mg/dL Direct Bilirubin 0.1 (0.0-0.5) mg/dL AST 15 (5-37) U/L ALT 39 (0-40) U/L Alkaline Phosphatase 52 (39-117) U/L Total Protein 7.7 (6.5-8.0) g/dL Albumin 4.5 (3.5-5.0) g/dL Lipase 30 (8-78) U/L Urine Color Urine Appearance Urine pH (5.0-9.0) Ur Specific [place] (1.005-1.025) Urine Protein (Neg-Trace) mg/dL Urine Glucose (UA) (Negative) mg/dL Urine Ketones (Negative) mg/dL Urine Blood (Negative) Urine Nitrite (Negative) Ur Leukocyte Esterase (Negative) 09/20/22 Range/Units 20:22 WBC (4.8-10.8) X10*3/uL RBC (4.60-5.80) X10*6/uL Hgb (14.0-18.0) g/dl Hct (42.0-52.0) % MCV (80.0-98.0) fL MCH (27.0-33.0) pg MCHC (31.0-36.0) g/dl RDW (11.0-16.0) % Plt Count (160-400) X10*3/uL MPV (9.4-12.4) fL Immature Gran % (Auto) (0.0-0.4) % Neut % (Auto) (45-73) % Lymph % (Auto) (20-40) % [place] % (Auto) (2-11) % Eos % (Auto) (0-4) % Baso % (Auto) (0-2) % Lymph # (Auto) (1.2-4.9) X10*3/uL [place] # (Auto) (0.1-1.2) X10*3/uL Eos # (Auto) (0.0-0.4) X10*3/uL Baso # (Auto) (0.0-0.2) X10*3/uL Abs Immat Gran (auto) (0.00-0.03) X10*3/uL Absolute Neuts (auto) (2.0-8.3) x10*3/uL Absolute Nucleated RBC (0.0-0.012) X10*3/uL Nucleated RBC % (auto) (0.0-0.2) /100WBC PT (10.0-13.1) SEC INR (0.9-1.1) Sodium (135-145) mmol/L Potassium (3.3-5.1) mmol/L Chloride (96-108) mmol/L Carbon Dioxide (22-29) mmol/L Anion Gap (12-20) BUN (9-16) mg/dL Creatinine (0.5-1.4) mg/dL Estim Creat Clear Calc Estimated GFR Random Glucose (60-115) mg/dL Calcium (8.4-10.2) mg/dL Total Bilirubin (0.0-1.0) mg/dL Direct Bilirubin (0.0-0.5) mg/dL AST (5-37) U/L ALT (0-40) U/L Alkaline Phosphatase (39-117) U/L Total Protein (6.5-8.0) g/dL Albumin (3.5-5.0) g/dL Lipase (8-78) U/L Urine Color Yellow Urine Appearance Clear Urine pH 5.5 (5.0-9.0) Ur Specific [place] 1.020 (1.005-1.025) Urine Protein Negative (Neg-Trace) mg/dL Urine Glucose (UA) Negative (Negative) mg/dL Urine Ketones Negative (Negative) mg/dL Urine Blood Negative (Negative) Urine Nitrite Negative (Negative) Ur Leukocyte Esterase Negative (Negative) Independent Interpretation I performed an independent interpretation of an: Plain X-Ray (No acute rib fractures or pneumothorax) Radiology Impression Discussion of test interpretation with radiology: I have reviewed the radiologist's reading. (1.5 cm right renal cyst. No biliary disease) Discharge Plan Discharge Clinical Impression: Acute right-sided back pain Patient Disposition: Home, Self-Care Instructions: Back Pain (ED) Additional Instructions: Your workup in the emergency department today was reassuring. This includes her blood work, imaging and urine sample. The right renal cyst is the same size, 1.5 cm that it was 2 years ago You may continue to use NSAIDs such as ibuprofen and naproxen for pain Just do not take these medications together You may also use Tylenol as needed which can be mixed with the NSAIDs You may also use methocarbamol as needed for muscle spasms This may make you sleepy, did not drink alcohol or drive after taking it Use warm compresses to help with the symptoms Prescriptions: New methocarbamol 500 mg tablet 500 mg PO QID PRN (Reason: muscle spasm) Qty: 20 0RF No Action oxycodone 5 mg tablet 5 mg PO BID PRN (Reason: pain) Qty: 5 0RF Rx Instructions: Partial Fill upon patient request. Only if ibuprofen does not alleviate pain sufficiently ibuprofen 600 mg tablet 600 mg PO Q8H PRN (Reason: fever or pain) Qty: 20 0RF cyclobenzaprine 10 mg tablet 10 mg PO TID PRN (Reason: muscle spasm) Qty: 12 0RF
[2022-09-20 17:50] VITALS: BP 158/118; PULSE 93; RESP 18; TEMP 36.6; O2SAT 99; BMI 29.9
[2022-09-20 17:53] VITALS: BP 157/116
[2022-09-20 19:06] LABS: MANUAL DIFF FLAG NO
[2022-09-20 19:08] LABS: Basophils Percent Auto 0.5 % (0-2); Eosinophils Absolute Auto 0.2 X10*3/uL (0.0-0.4); Hematocrit 44.1 % (42.0-52.0); Hemoglobin 14.5 g/dl (14.0-18.0); Imm Gran Abs Auto 0.03 X10*3/uL (0.00-0.03); Imm Gran Pct Auto 0.3 % (0.0-0.4); Lymphocytes Absolute Auto 2.9 X10*3/uL (1.2-4.9); Lymphocytes Percent Auto 32.3 % (20-40); Mean Corpuscular HGB Conc 32.9 g/dl (31.0-36.0); Mean Corpuscular Hemoglobin 30.1 pg (27.0-33.0); Mean Corpuscular Volume 91.7 fL (80.0-98.0); Monocytes Absolute Auto 0.7 X10*3/uL (0.1-1.2); Monocytes Percent Auto 7.6 % (2-11); Neutrophils Absolute Auto 5.1 x10*3/uL (2.0-8.3); Neutrophils Percent Auto 57.3 % (45-73); Platelet Count 315 X10*3/uL (160-400); Red Blood Count 4.81 X10*6/uL (4.60-5.80); Red Cell Distribution Width 13.1 % (11.0-16.0); White Blood Count 8.8 X10*3/uL (4.8-10.8)
[2022-09-20 19:18] LABS: Prothrombin Time 11.4 SEC (10.0-13.1)
[2022-09-20 19:26] LABS: Alanine Aminotransferase 39 U/L (0-40); Albumin Level 4.5 g/dL (3.5-5.0); Alkaline Phosphatase 52 U/L (39-117); Anion Gap 12 (12-20); Aspartate Amino Transferase 15 U/L (5-37); Bilirubin Direct 0.1 mg/dL (0.0-0.5); Bilirubin Total 0.3 mg/dL (0.0-1.0); Blood Urea Nitrogen 19 mg/dL (9-16); Calcium 9.8 mg/dL (8.4-10.2); Carbon Dioxide 25 mmol/L (22-29); Chloride 105 mmol/L (96-108); Creatinine Clr Calc Pharmacy 86.6; Estimated Glomerular Filt Rate > 60; Glucose Random 95 mg/dL (60-115); Lipase 30 U/L (8-78); Potassium 4.4 mmol/L (3.3-5.1); Sodium 138 mmol/L (135-145); Total Protein 7.7 g/dL (6.5-8.0)
[2022-09-20 20:47] LABS: Appearance Urine Clear; Color Urine Yellow; Glucose Urine UA Negative (Negative); Leukocyte Esterase Urine Negative (Negative); Nitrite Urine Negative (Negative); PH 5.5 (5.0-9.0); Urine Blood Negative (Negative); Urine Ketones Negative (Negative); Urine Protein Negative (Neg-Trace)
[2022-09-21 01:07] VITALS: BP 158/95; PULSE 84; RESP 16; TEMP 36.7; O2SAT 100
== END 2022-09-21 01:24 | disposition home or self-care (01) ==
PROVIDERS: Physician Assistant; Emergency Provider Emergency Medicine
DX: M54.89 Other dorsalgia (principal); N28.1 Cyst of kidney, acquired; R10.11 Right upper quadrant pain; I10 Essential (primary) hypertension; F17.210 Nicotine dependence, cigarettes, uncomplicated
CPT/HCPCS: 36415; 71101; 76705; 80048; 80076; 81003; 83690; 85025; 85610; 99284

== ENCOUNTER → 2022-09-26 13:44 | Outpatient (BNVA) | payer OTHER, SELFPAY | PROVIDERS: Visit Provider Internal Medicine | DX: S39.011D Strain of muscle, fascia and tendon of abdomen, subsequent encounter (principal); X50.9XXD Other and unspecified overexertion or strenuous movements or postures, subsequent encounter | CPT/HCPCS: 99213 ==

== ENCOUNTER 2022-09-30 18:53 | Outpatient (REF) | payer OTHER, SELFPAY ==
--- NOTE | ~2022-09-30 | MR_ITS ---
EXAMINATION: MRI RIGHT FEMUR WITHOUT CONTRAST CLINICAL INDICATION: Groin Strain. Attention adduction muscles. COMPARISON: None available. TECHNIQUE: Multiplanar MR imaging was obtained through the right femur without contrast on a 1.5 Marilin magnet. FINDINGS: MUSCLES AND TENDONS: Musculature is normal in signal intensity. No atrophy or fatty replacement. Tendons are intact. The right adductor aponeurosis appears intact at the origin on the pubic symphysis. No appreciable adductor tears or strains. There is mild gluteus minimus tendinosis at the greater trochanteric insertion without a discrete tear. BONES AND ARTICULAR CARTILAGE: Small marginal osteophytes are present at the acetabulum. Mild subchondral edema in the acetabular roof is likely due to overlying chondral thinning or fissuring. Assessment of the articular cartilage is somewhat limited on this large [id number] study. No appreciable labral tear, though sensitivity is limited. Mild osteoarthritis is also suspected in the left hip. Pubic symphysis appears normal. Bone marrow signal is otherwise normal. No fracture or stress reaction. No avascular necrosis. Mild osteoarthritis in patellofemoral compartment of the knee is partially imaged. JOINT FLUID AND BURSAE: No bursitis. No hip joint effusions. Trace right knee joint effusion is partially imaged. PELVIC SOFT TISSUES: Small fat-containing right inguinal hernia. No bowel involvement. No acute intrapelvic findings are identified on these images. No adenopathy. NERVES: No clear sites of nerve impingement are identified on these images. Imaged portion of the sciatic nerve is normal in course, caliber, and signal intensity. MR/MR femur RT wo con IMPRESSION: 1. Mild gluteus minimus tendinosis. No tears. Right adductors appear intact without appreciable strain or tear. 2. Mild osteoarthritis in the hips. 3. Small fat-containing right inguinal hernia.
== END 2022-09-30 18:54 | disposition home or self-care (01) ==
LOC: HO.MRI 18:53
PROVIDERS: Visit Provider Internal Medicine
DX: S39.011D Strain of muscle, fascia and tendon of abdomen, subsequent encounter (principal)
CPT/HCPCS: 73718

== ENCOUNTER → 2022-10-07 11:45 | Outpatient (BNVA) | payer OTHER, SELFPAY | PROVIDERS: Visit Provider Physician Assistant Medical | DX: S76.20 Unspecified injury of adductor muscle, fascia and tendon of thigh (principal); X50.9XXD Other and unspecified overexertion or strenuous movements or postures, subsequent encounter | CPT/HCPCS: 99213 ==

== ENCOUNTER 2022-10-14 12:43 | Outpatient (AMB) | payer OTHER, BC, SELFPAY ==
[2022-10-14 12:58] VITALS: BMI 29.9
--- NOTE | 2022-10-14 12:58 | MHC.OFFVIS ---
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 States while working, he slipped, hyper extending and twisting leg. Seen in ED same day where xrays and an MRI study were done. States he was told he has a pulled hernia and O.A. Currently states his pain is a 8/10. He is having pain in his right testicle. Pain from sit to stand. States he has radiating numbness down his leg. 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 He was seen at ED the same day where x-rays and MRI were performed and he was diagnosed with a pulled hernia and OA. He states he has pain in his right groin region and testicle which is aggravated with getting from sitting to standing position. He rates the pain as 8 on the scale of 0-10. He also c/o numbness which radiates down to his leg. 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 Review of Systems Const All systems reviewed & are unremarkable except as noted in HPI and below Physical Exam Vital Signs: BMI result Body Mass Index 29.9 Const General: cooperative, healthy appearing, comfortable, no acute distress, well developed and alert Orientation/consciousness: patient oriented x3 HEENT Head: Yes normal to inspection, Yes normocephalic and Yes atraumatic Eyes General: appearance normal, both eyes and all related structures Resp Effort & Inspection: normal respiratory effort and able to speak in complete sentences Cardio Rate: regular rate Peripheral pulses: Peripheral pulses 2+ throughout GI Palpation (GI): Soft to palpation Skin Lesions: no lesions Rashes: no rashes Neuro General: patient oriented x3 Extrem Other: Right groin: He has some discomfort with hip flexion and extension. No pain with ROM of hip. NVI. Assessment & Plan Assessment & Plan (1) Strain of gluteus medius: Code(s): S76.019A - Strain of muscle, fascia and tendon of unspecified hip, initial encounter Plan I feel that his primary source of pain is his inguinal hernia which was found on MRI of femur back on September 30. He does have an appointment with Dr. Chahal, one of our general surgeons for evaluation of his hernia. I did explain to the patient that I feel his symptoms are from the hernia and if after he is seen by Dr. Chahal and he does not have resolution of his symptoms, he can contact our office and I can send him to physical therapy for his tendinosis of right glute muscle, otherwise follow-up with us in as needed basis. Patient Instructions: Scribed for Cornelius Ramos PA-C, by Moise Colby ophthalmic medical technologist, on 10/14/2022 at 1:00 PM EST. Cornelius Taylor PA-C, have personally reviewed and agree with the information entered by the scribe. Coding Level of Care Code New Pt Level 3 (92882) Diagnoses Strain of gluteus medius S76.019A
== END 2022-10-14 13:18 | disposition home or self-care (01) ==
PROVIDERS: Visit Provider Physician Assistant
DX: S76.011A Strain of muscle, fascia and tendon of right hip, initial encounter (principal)
CPT/HCPCS: 99203

== ENCOUNTER → 2022-10-14 12:43 | Outpatient (BNVA) | payer BC, SELFPAY | PROVIDERS: Visit Provider Physician Assistant | DX: S39.011A Strain of muscle, fascia and tendon of abdomen, initial encounter (principal); X50.1XXA Overexertion from prolonged static or awkward postures, initial encounter; Y93.89 Activity, other specified; Y92.69 Other specified industrial and construction area as the place of occurrence of the external cause; Y99.8 Other external cause status | CPT/HCPCS: 99202 ==

== ENCOUNTER 2022-10-16 14:23 | Outpatient (AMB) | payer BC, SELFPAY ==
[2022-10-16 14:26] VITALS: BP 153/94; PULSE 94; BMI 30.3
--- NOTE | 2022-10-16 14:26 | MHC.OFFVIS ---
Intake Vital Signs 10/16/22 14:26 Height 5 ft 6 in Weight 188 lb BMI 30.3 BP 153/94 H Blood Pressure Location Rt brachial Position Sitting Pulse 94 Intake Visit Reasons: right groin pain, worker comp Intake Note: This patient presents for an assessment for right groin pain. *Worker's Comp* Patient c/o; right groin, reports pain, reports bulge, reports headaches. 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 He has had severe pain on the right thigh, right hip area as well as the right groin since then He has been unable to work especially because he is work entails a lot of heavy lifting and physical activity. He continues to have pain on the entire right hip, right groin as well as the right thigh. He was referred to me because of this as this MRI showed a small fat containing inguinal hernia. He denies any palpable mass on the right groin. 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 Review of Systems Const Denies chills and Denies fever(s) Card Denies chest pain, Denies dyspnea and Denies dyspnea on exertion Resp Denies cough, Denies dyspnea and Denies dyspnea on exertion GI Denies hematochezia and Denies change in bowel habits Denies hematuria and Denies difficulty urinating Musc Denies back pain, Reports arthralgias (Right hip) and Reports limited range of motion Neuro Denies focal weakness and Denies convulsions Psych Denies depression and Denies mood swings Physical Exam Const General: comfortable and no acute distress Orientation/consciousness: patient oriented x3 Neck Neck: Yes no lymphadenopathy Resp Auscultation: clear to auscultation bilaterally Cardio Rhythm: regular rhythm GI Other: No obvious palpable mass with Valsalva on the right groin, but he seems to be tender throughout the area including the right hip and the right thigh Palpation (GI): Soft to palpation, nontender and no guarding Neuro General: patient oriented x3 Assessment & Plan Assessment & Plan (1) Right inguinal hernia: Code(s): K40.90 - Unilateral inguinal hernia, without obstruction or gangrene, not specified as recurrent Plan: He had an MRI for the right hip in view of his work injury and this shows a small fat containing right inguinal hernia. This is not obvious with Valsalva. I told him that his overall pain seems to be more of his muscular injury rather than the inguinal hernia. I told him that I have reviewed his MRI and this hernia is very small and fat containing. I told him that I can bring him for surgery to have this repaired with a mesh but I do not think that this will help with this right hip pain and right thigh pain. He says that he understands. I am going to send him for a CT scan however to reimage this right inguinal hernia. I will see him back in the office to discuss the findings. Orders: Orders CT abdomen pelvis wo IV con Today K40.90 - Unilateral inguinal hernia, without obstruction or gangrene, not specified as recurrent Coding Level of Care Code New Pt Level 3 (83733) Diagnoses Right inguinal hernia K40.90
== END 2022-10-16 14:45 | disposition home or self-care (01) ==
PROVIDERS: Visit Provider Surgery
DX: K40.90 Unilateral inguinal hernia, without obstruction or gangrene, not specified as recurrent (principal)
CPT/HCPCS: 99203

== ENCOUNTER → 2022-10-16 14:23 | Outpatient (BNVA) | payer OTHER, BC, SELFPAY | PROVIDERS: Visit Provider Surgery | DX: K40.90 Unilateral inguinal hernia, without obstruction or gangrene, not specified as recurrent (principal) | CPT/HCPCS: 99202 ==

== ENCOUNTER → 2022-10-21 11:52 | Outpatient (BNVA) | payer OTHER, SELFPAY | PROVIDERS: Visit Provider Physician Assistant Medical | DX: S39.011D Strain of muscle, fascia and tendon of abdomen, subsequent encounter (principal); X50.9XXD Other and unspecified overexertion or strenuous movements or postures, subsequent encounter; M76.01 Gluteal tendinitis, right hip; K40.90 Unilateral inguinal hernia, without obstruction or gangrene, not specified as recurrent | CPT/HCPCS: 99213 ==

== ENCOUNTER 2022-10-22 13:45 | Outpatient (REF) | payer OTHER, SELFPAY ==
--- NOTE | ~2022-10-22 | CT_ITS ---
EXAMINATION: CT ABDOMEN AND PELVIS WITHOUT CONTRAST CLINICAL INFORMATION: Unilateral inguinal hernia without obstruction. COMPARISON: Abdominal ultrasound of 09/20/[address] of 01/23/2015 TECHNIQUE: Multidetector volumetric imaging was performed from the superior aspect of the liver through the pubic symphysis. Sagittal and coronal reformatted images were obtained on the technologist's workstation. This CT examination was performed using dose optimization techniques as appropriate, variously including the following: *Automated exposure control *Adjustment of mA and/or kV according to patient size (this includes techniques or standardized protocols for targeted exams where dose is matched to indication/reason for exam; i.e. extremities or head) *Use of iterative reconstruction technique DLP: 452.2 mGy-cm FINDINGS: LUNG BASES: The visualized lung bases are unremarkable. LIVER, GALLBLADDER, AND BILIARY TREE: The liver is normal in size, shape, and attenuation. No focal hepatic lesion or biliary ductal dilatation is present. The gallbladder is unremarkable with no evidence of radiopaque gallstones, gallbladder wall thickening, or obvious pericholecystic inflammatory changes. PANCREAS: Unremarkable. SPLEEN: Unremarkable. ADRENAL GLANDS: Unremarkable. KIDNEYS AND URETERS: There is a 16 mm low-density lesion in the mid to upper pole the right kidney, corresponding with a mildly complex cyst visualized on renal ultrasound of 09/20/2022, the larger on the CT of 2014 when it measured 8 mm. The kidneys are normal in size, shape, and attenuation. No hydronephrosis, hydroureter, or calculi seen. No perinephric stranding. BLADDER: Unremarkable. GASTROINTESTINAL TRACT: Sigmoid diverticula are present but there is no evidence of diverticulitis. The appendix is unremarkable. No dilated small bowel loops are evident. The stomach and distal esophagus are unremarkable. ABDOMINAL WALL: There are small symmetric bilateral fat-containing inguinal hernias. No bowel herniation is detected. The anterior abdominal wall is intact. LYMPH NODES: Normal. VASCULAR: Unremarkable. PELVIC VISCERA: Unremarkable. OSSEOUS STRUCTURES: No suspicious findings CT/CT abdomen pelvis wo IV con IMPRESSION: 1. Symmetric fat-containing bilateral inguinal hernias. No bowel herniation. 2. Sigmoid diverticulosis without diverticulitis. 3. Low-density 16 mm lesion in the mid to upper pole of the right kidney, likely corresponding to the mildly complex cyst on abdominal ultrasound of 09/20/2022. The lesion is suboptimally characterized on this unenhanced CT. Fleischner guidelines were followed.
== END 2022-10-22 13:46 | disposition home or self-care (01) ==
LOC: HO.CT 13:45
PROVIDERS: Visit Provider Surgery
DX: K40.90 Unilateral inguinal hernia, without obstruction or gangrene, not specified as recurrent (principal)
CPT/HCPCS: 74176

== ENCOUNTER 2022-10-30 15:37 | Outpatient (AMB) | payer BC, SELFPAY ==
--- NOTE | 2022-10-30 15:38 | MHC.OFFVIS ---
Intake Intake Visit Reasons: Follow up CT scan Intake Note: This patient presents for a follow-up assessment for Ct-Scan results. Patient c/o; reports no changes. 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 He had a CAT scan done last 10/22/2022 and he is here to discuss the findings. He does state that his pain on the rest of his buttock and thigh have resolved. He says his pain now is solely on the right groin. He says that he seems to feel a mass with coughing on the right groin. He denies GI complaints. 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 Review of Systems Const Denies chills and Denies fever(s) Card Denies chest pain, Denies dyspnea and Denies dyspnea on exertion Resp Denies cough, Denies dyspnea and Denies dyspnea on exertion GI Denies hematochezia and Denies change in bowel habits Denies hematuria and Denies difficulty urinating Musc Details: Right thigh pain, right groin pain, right hip pain Denies back pain and Denies limited range of motion Neuro Denies focal weakness and Denies convulsions Psych Denies depression and Denies mood swings Physical Exam Const General: comfortable and no acute distress Orientation/consciousness: patient oriented x3 Neck Neck: Yes no lymphadenopathy Resp Auscultation: clear to auscultation bilaterally Cardio Rhythm: regular rhythm GI Other: Right groin mass on Valsalva maneuver, no hernia felt on the left Palpation (GI): Soft to palpation, nontender and no guarding Neuro General: patient oriented x3 Assessment & Plan Assessment & Plan (1) Right inguinal hernia: Code(s): K40.90 - Unilateral inguinal hernia, without obstruction or gangrene, not specified as recurrent Plan: I have reviewed his CAT scan and this shows two small fat containing bilateral inguinal hernias. On examination, he does have a palpable hernia on the right side with Valsalva. I do not feel any hernia on the left side. He does state that he thinks that his pain now is on the right groin only. He says that this seems to extend all the way to the testicle. He wants to proceed with repair of the right inguinal hernia. I explained the technique of this procedure. I reviewed the risks including but not limited to bleeding, infections, recurrence, injury to bowel, vas deferens or the testicle, postop pain, as well as the benefits and alternatives. Since he has had a work injury on the right hip, I told him that the other symptoms may not resolve with repair of his hernia. He says he understands this. Coding Level of Care Code Est Pt Level 4 (30256) Diagnoses Right inguinal hernia K40.90
== END 2022-10-30 15:56 | disposition home or self-care (01) ==
PROVIDERS: Visit Provider Surgery
DX: K40.90 Unilateral inguinal hernia, without obstruction or gangrene, not specified as recurrent (principal)
CPT/HCPCS: 99214

== ENCOUNTER → 2022-10-30 15:37 | Outpatient (BNVA) | payer OTHER, BC, SELFPAY | PROVIDERS: Visit Provider Surgery | DX: K40.20 Bilateral inguinal hernia, without obstruction or gangrene, not specified as recurrent (principal) | CPT/HCPCS: 99212 ==

== ENCOUNTER → 2022-11-06 10:46 | Outpatient (BNVA) | payer OTHER, SELFPAY | PROVIDERS: Visit Provider Physician Assistant Medical | DX: S39.011D Strain of muscle, fascia and tendon of abdomen, subsequent encounter (principal); X50.9XXD Other and unspecified overexertion or strenuous movements or postures, subsequent encounter; M76.00 Gluteal tendinitis, unspecified hip; K40.90 Unilateral inguinal hernia, without obstruction or gangrene, not specified as recurrent | CPT/HCPCS: 99213 ==

== ENCOUNTER 2022-11-08 11:39 | Day surgery (SDC) | payer OTHER, SELFPAY ==
[2022-11-08] VITALS (12 sets, daily range): BP systolic 141–163; BP diastolic 82–101; PULSE 82–98; RESP 16–20; TEMP 36.6–37; O2SAT 96–98
[2022-11-08] MEDS: Lactated Ringers 1,000 ML 50 ML IVCONT (13:06)
--- NOTE | 2022-11-08 13:39 | P.CONAN_ITS ---
HPI - Anesthesia Eval Consult details Narrative: 47 yo M presenting for open right inguinal hernia repair. Never had surgery before. Currently reports a 9/10 headache in the back of his neck and on the left side of his face. [facility] Active Problems Active Problems: All Active Problems (Updated 10/16/22 @ 14:40 by Josue Chahal MD) Right inguinal hernia (Acute) Strain of gluteus medius (Acute) Precordial chest pain (Acute) Past Medical History Medical History Right inguinal hernia Family History Family History Mother Hypertension Anxiety Family history of problems with anesthesia: No Surgical History Surgical History No pertinent past surgical history History of Problems with Anesthesia: No Social History Social History Alcohol intake: current Alcohol intake frequency: a few times a week Patient Tobacco Use Status: Current everyday Tobacco user Tobacco use type: Cigarette Cigarettes Per Day: 3 Use of substances other than those prescribed or required for medical reasons: No Are you DNR?: No Advance Directives: No Advance Directives Information Provided: Yes Current occupational status: employed 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 Meds Allergies Allergy/AdvReac Type Severity Reaction Status Date / Time No Known Allergies Allergy Verified 10/30/22 15:43 Active Medications: Current Medications Lactated Ringer's (Lr) 1,000 mls @ 50 mls/hr IVCONT .Q20H JARRED Last Admin: 11/08/22 13:06 Dose: 50 mls/hr Home Medications Medication Instructions Recorded Confirmed Last Taken Type naproxen 500 mg tablet 500 mg PO BID 10/16/22 11/08/22 11/06/22 History Exam Exam Date and Time: November 08, 2022 1335 Height,Weight and Vital Signs: Height 5 ft 6 in Weight 84.368 kg Last Vital Signs Temp 97.9 F 11/08/22 12:03 Pulse 85 11/08/22 12:03 Resp 18 11/08/22 12:03 BP 142/93 H 11/08/22 12:03 Pulse Ox 97 11/08/22 12:03 O2 Del Method Room Air 11/08/22 12:03 Airway Mallampati Class: I TM Dist: >3cm Neck ROM: Full Loose/Missing/Broken Teeth: No Heart: S1S2 Lungs: CTAB Assessment and Plan Assessment Anesthesia Assessment: Anesthesia Plan Discussed and Chart Reviewed Final Anesthetic Review Family History of Problems with Anesthesia: No History of Problems with Anesthesia: No NPO: Yes ASA Class: I Final Preanesthetic Review: No Changes in Pt Med Stat, Meds/Allgs Chart Reviewed, Consent Obtained/Reviewed and Anes Risks/Benef Reviewed Patient Risk: Low Procedure Risk: Low Anesthetic Plan Anesthetic Plan: GA and Agree w/ Assess. and Plan Disposition: Standard PACU
--- NOTE | 2022-11-08 14:15 | MHC.SHP ---
Pre-Procedural Eval Section A Date of Service: 11/08/22 The patient is an INPATIENT: No The History & Physical has been completed within 30 days and I have reviewed it.: Yes Section B Chief Complaint: Unilateral inguinal hernia, without obstruction or Allergies: Allergies Allergy/AdvReac Type Severity Reaction Status Date / Time No Known Allergies Allergy Verified 10/30/22 15:43 Plan I have reviewed the history and physical and performed a pertinent physical examination on my patient. No changes have occurred unless specified. Time Spent With Patient Time: Total time managing care of this patient today ____ minutes.
--- NOTE | 2022-11-08 15:05 | W.PM.OPN ---
Operative Note Operative Note Date of Service: 11/08/22 Narrative: Preop diagnosis: Right inguinal hernia Postop diagnosis: Right inguinal hernia, indirect Procedure: Repair of right inguinal hernia with mesh Surgeon: Josue Chahal MD psychology assistant: HUYEN Cisneros Patient is a 47-year-old male with right groin pain, with note of a fat containing hernia on the CT scan. He understood the technique of repair of the hernia with mesh. He was aware of the risks, benefits, and alternatives He was brought to the operating room. He was placed in supine position under general anesthesia via laryngeal mask airway. The right groin was prepped and draped in the usual sterile fashion. A surgical time-out was done. The patient received cefazolin 2 g IV preoperatively I infiltrated the planned line of incision with lidocaine 1%. I made a short incision on the skin along an imaginary line from the anterior superior iliac spine to the pubic ramus using blade 15. This was carried down through the full-thickness of the skin and subcutaneous fat with electrocautery until I visualized the external oblique aponeurosis. I bluntly dissected the external oblique aponeurosis to define the external ring. Opened up the roof of the inguinal canal on the external oblique aponeurosis by making a short incision a blade 15 and extending this infero medially to connect with the external ring. The inguinal canal was therefore entered. I applied hemostats on the divided edges of the aponeurosis. I bluntly dissected the underside of the aponeurosis to create a pocket for the mesh. I then proceeded to gently dissect the spermatic cord and its contents with the index finger until was able to pass a Atwood drain around this. This Marian drain was used for retraction . I then identified the vas deferens and the accompanying vessels. These were protected during the dissection. Identified the fat containing hernia on the anteromedial aspect of the cord and this was bluntly dissected away from the rest of the cord contents until this was reduced to the internal ring. This was therefore an indirect hernia. I reinforced the internal ring with a small-sized Prolene plug. The plug was secured Prolene 2 sutures to the shelving edge of the inguinal and laterally and the internal oblique superiorly and medially using the inner leaves of the plug I then reinforced the floor of the canal with a keyhole mesh. The tails of the mesh were passed around the cord at the level of the internal ring and were secured together with Prolene 2 sutures. I flattened the mesh on the floor of the canal. I secured the mesh with Prolene 2 sutures to shelving edge of the inguinal ligament laterally, the internal oblique superiorly and medially and towards the pubic ramus inferomedially. I irrigated. Once hemostasis was confirmed, I proceeded then closed the external oblique aponeurosis were running Polysorb 2-0 stitch to re-create the external ring The subcutaneous layer was reapposed with Polysorb 3-0 interrupted sutures. The incision was closed with the running subcuticular Polysorb 4-0 stitch The area was infiltrated with Marcaine 0.5% for postop analgesia. Dressings were applied. The procedure was completed. The patient tolerated the procedure well. There were no immediate complications. Initial andl final counts of sponges and instruments were correct. Estimated blood loss was about 10 cc The patient was extubated without difficulty and transferred to the recovery room with stable vital signs.
[2022-11-08] MEDS: fentaNYL citrate/PF 100 MCG/2 ML VIAL 50 MCG IVPUSH ×4 (15:42→15:57)
[2022-11-08] MEDS: Acetaminophen 325 MG TABLET 650 MG PO (15:47)
[2022-11-08] MEDS: oxyCODONE HCl Immed Release 5 MG TABLET PO (15:47)
== END 2022-11-08 16:40 | disposition home or self-care (01) ==
PROVIDERS: Visit Provider Surgery
PROC: (CPT 49505; principal; 2022-11-08 14:10)
DX: K40.90 Unilateral inguinal hernia, without obstruction or gangrene, not specified as recurrent (principal); Z87.828 Personal history of other (healed) physical injury and trauma; Z79.1 Long term (current) use of non-steroidal anti-inflammatories (NSAID); Z79.899 Other long term (current) drug therapy; F17.210 Nicotine dependence, cigarettes, uncomplicated
CPT/HCPCS: 49505; C1781; J0690; J1100; J1885; J2371; J2405; J3010

== ENCOUNTER → 2022-11-08 11:39 | Outpatient (BNV) | payer OTHER, SELFPAY | PROVIDERS: Visit Provider Surgery | DX: K40.90 Unilateral inguinal hernia, without obstruction or gangrene, not specified as recurrent (principal) | CPT/HCPCS: 49505 ==

== ENCOUNTER 2022-11-16 10:27 | Emergency (ER) | payer OTHER, SELFPAY ==
--- NOTE | ~2022-11-16 | CT_ITS ---
EXAMINATION: CT ABDOMEN AND PELVIS WITH CONTRAST CLINICAL INFORMATION: Status post hernia repair, right inguinal pain COMPARISON: CT abdomen pelvis 10/22/2022 TECHNIQUE: Multidetector volumetric images were obtained from the superior aspect of the liver through the pubic symphysis following administration 85 mL of Omnipaque 350 intravenous contrast. Sagittal and coronal reformatted images were obtained on the technologist's workstation. Oral contrast: No This CT examination was performed using dose optimization techniques as appropriate, variously including the following: *Automated exposure control *Adjustment of mA and/or kV according to patient size (this includes techniques or standardized protocols for targeted exams where dose is matched to indication/reason for exam; i.e. extremities or head) *Use of iterative reconstruction technique DLP: 524 mGy-cm FINDINGS: LUNG BASES: Unremarkable. ABDOMINAL AND PELVIC WALL: Skin thickening, ill-defined fluid and inflammatory fat stranding is noted in the right inguinal soft tissues with few punctate foci of gas which may reflect sequelae of postsurgical change or superimposed soft tissue infection. No organized rim-enhancing fluid collection to suggest abscess. No residual or recurrent inguinal hernia. LIVER AND BILIARY TREE: Unremarkable. GALLBLADDER: Unremarkable. PANCREAS: Unremarkable. SPLEEN: Unremarkable. ADRENAL GLANDS: Unremarkable. KIDNEYS AND URETERS: Bosniak 1 benign-appearing right renal cyst, no imaging follow-up recommended. GASTROINTESTINAL TRACT: Large and small bowel are unremarkable. Normal appendix. VASCULAR: Unremarkable. LYMPH NODES/PERITONEUM: No lymphadenopathy. FREE FLUID: None. BLADDER: Mild circumferential bladder wall thickening with infiltration of the perivesicular fat, recommend correlation with urinalysis and symptoms of cystitis. PELVIC VISCERA: Unremarkable. OSSEOUS STRUCTURES: Unremarkable. CT/CT abdomen pelvis w IV con IMPRESSION: 1. Skin thickening, ill-defined fluid and inflammatory fat stranding is noted in the right inguinal soft tissues with few punctate foci of gas which may reflect sequelae of postsurgical change or superimposed soft tissue infection, recommend correlation with clinical exam. No organized rim-enhancing fluid collection to suggest abscess. No residual or recurrent inguinal hernia. 2. Mild circumferential bladder wall thickening with infiltration of the perivesicular fat, recommend correlation with urinalysis and symptoms of cystitis.
[2022-11-16 10:32] VITALS: BP 190/126; PULSE 98; RESP 19; TEMP 36.6; O2SAT 98; BMI 30.2
--- NOTE | 2022-11-16 12:58 | ED.ABDPAIN ---
HPI - Abdominal Pain General Chief Complaint: Abdominal Pain Stated Complaint: Surgery Groin 11/08 / a lot of pain Time Seen by Provider: 11/16/22 12:48 Source: patient Mode of arrival: ambulatory Limitations: no limitations History of Present Illness HPI narrative: 47-year-old male s/p right inguinal hernia repair with mesh insertion on 11/08. Patient was doing well postoperatively, patient sneezed and had coughing fit and started to have a severe right groin pain at the surgery site, patient also noted bulging of the surgery side, no discharge from the surgery site. No fever, no chills. Normal bowel movement last bowel movement was yesterday, passing flatus. Past surgical history is significant for right inguinal hernia repair with mesh placement. Related Data Home Medications Medication Instructions Recorded Confirmed naproxen 500 mg tablet 500 mg PO BID 10/16/22 11/08/22 Previous Rx's Medication Instructions Recorded ibuprofen 600 mg tablet 600 mg PO Q8H PRN fever or pain 09/06/22 #20 tabs tramadol 50 mg tablet 50 mg PO Q12H PRN pain #14 tabs 10/21/22 oxycodone-acetaminophen 5 mg-325 1 tab PO Q4-6H PRN pain #30 tabs 11/08/22 mg tablet (Percocet) doxycycline hyclate 100 mg tablet 100 mg PO DAILY #14 tabs 11/16/22 oxycodone 5 mg tablet 5 mg PO BID PRN pain #10 tabs 11/16/22 Allergies Allergy/AdvReac Type Severity Reaction Status Date / Time No Known Allergies Allergy Verified 11/16/22 10:32 Review of Systems Review of Systems All other systems are reviewed and are negative Constitutional: Reports as per HPI and Reports no additional constitutional complaints Eyes: Reports as per HPI and Reports no additional eye complaints Reports system reviewed and no additional complaints, except as documented Cardiovascular: Reports as per HPI and Reports no additional cardiovascular complaints Respiratory: Reports as per HPI and Reports no additional respiratory complaints Gastrointestinal: Reports as per HPI and Reports no additional gastrointestinal complaints Genitourinary: Reports no additional female genitourinary complaints Musculoskeletal: Reports no additional musculoskeletal complaints Skin/Breast: Reports system reviewed and no additional complaints, except as docu Psychiatric: Reports no additional psychiatric complaints Endocrine: Reports no additional endocrine complaints Hematologic/Lymphatic: Reports no additional hematologic/lymphatic complaints Allergic/Immunologic: Reports no additional allergic/immunologic complaints Reports system reviewed and no additional complaints, except as documented and Reports Abnormal speech present PENDING SALE TO [facility] Past Medical History Medical History Right inguinal hernia Surgical History No pertinent past surgical history Family History Family History Mother Hypertension Anxiety Social History Social History Alcohol intake: current Alcohol intake frequency: holidays/special occasions only Patient Tobacco Use Status: Current everyday Tobacco user Tobacco use type: Cigarette Cigarettes Per Day: 3 Smoked in Last 30 Days: Yes Use of substances other than those prescribed or required for medical reasons: No Advance Directives: No Current occupational status: employed 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 Blood pressure elevated. Heart rate normal. Respiratory rate normal. Temperature normal. Oxygen saturation normal. Appearance: Alert. Oriented X3. No acute distress. Head: Normal external exam. Normocephalic. Atraumatic. No Fraser signs noted. No raccoon eyes noted Eyes: PERRLA. EOMI. Conjunctiva and sclera normal. Eyelids normal. ENT: TM's Normal. Pharynx normal. Uvula midline. Moist mucous membranes. No trismus noted. No drooling noted. No muffled voice noted. Neck: Normal inspection. Neck supple. FROM. No adenopathy. Thyroid Normal. No meningeal signs. No neck mass noted. CVS: Normal heart rate and rhythm. Heart sound normal. No murmurs noted. Pulses normal throughout. Respiratory: No respiratory distress. Painless inspiration. Breath sounds normal. No wheezes/rales/rhonchi noted. Chest nontender. No accessory muscle usage noted or decreased air movement noted. Abdomen: Soft and nontender. Bowel sounds normal in all 4 quadrants. No distention noted. No organomegaly noted. No visible injury noted. Back: No CVA tenderness. Full range of motion noted. Skin: Skin warm and dry. Normal skin color. Normal skin turgor. No rashes/lesions/lacerations noted. Extremities: No lower extremity edema. Extremities exhibit normal range of motion. Extremities nontender. Neuro: Oriented X 3. Cranial nerve exam: II-XII are grossly intact No motor deficit. No sensory deficit. Reflexes normal. Course Course Course Narrative: 47-year-old male s/p right inguinal hernia repair with mesh placement, patient has mild tenderness over the surgical side, no discharge, no good infection to the wound, normal WBCs, CT is questioning postoperative change versus infection, and possible cystitis but UA is normal. CT finding and lab finding were discussed with who agreed on the plan of discharge the patient home with pain medication and antibiotic with follow-up with Dr. Chahal next week. Medical Decision Making Differential Diagnosis Differential Diagnoses: The differential diagnosis associated with the presentation includes (Postoperative complication, seroma, wound abscess/infection, kidney stone, UTI, severe anemia, electrolyte abnormality.) Admission/Observation Consideration of admission/observation: Escalation of care including admission/observation considered Consult Healthcare Provider Management of the patient was discussed with: Proposal Writer (Dr. Rolon) Lab Data MDM Lab Attestation statement: I reviewed the patient's lab results. 11/16/22 13:09 11/16/22 13:09 Labs: Lab Results 11/16/22 11/16/22 Range/Units 13:09 14:53 WBC 8.2 (4.8-10.8) X10*3/uL RBC 4.72 (4.60-5.80) X10*6/uL Hgb 14.3 (14.0-18.0) g/dl Hct 42.6 (42.0-52.0) % MCV 90.3 (80.0-98.0) fL MCH 30.3 (27.0-33.0) pg MCHC 33.6 (31.0-36.0) g/dl RDW 13.3 (11.0-16.0) % Plt Count 332 (160-400) X10*3/uL MPV 9.2 L (9.4-12.4) fL Immature Gran % (Auto) 0.4 (0.0-0.4) % Neut % (Auto) 63.1 (45-73) % Lymph % (Auto) 25.9 (20-40) % [place] % (Auto) 8.8 (2-11) % Eos % (Auto) 1.2 (0-4) % Baso % (Auto) 0.6 (0-2) % Lymph # (Auto) 2.1 (1.2-4.9) X10*3/uL [place] # (Auto) 0.7 (0.1-1.2) X10*3/uL Eos # (Auto) 0.1 (0.0-0.4) X10*3/uL Baso # (Auto) 0.1 (0.0-0.2) X10*3/uL Abs Immat Gran (auto) 0.03 (0.00-0.03) X10*3/uL Absolute Neuts (auto) 5.2 (2.0-8.3) x10*3/uL Absolute Nucleated RBC 0.000 (0.0-0.012) X10*3/uL Nucleated RBC % (auto) 0.0 (0.0-0.2) /100WBC Sodium 139 (135-145) mmol/L Potassium 4.3 (3.3-5.1) mmol/L Chloride 106 (96-108) mmol/L Carbon Dioxide 25 (22-29) mmol/L Anion Gap 12 (12-20) BUN 18 H (9-16) mg/dL Creatinine 0.97 (0.5-1.4) mg/dL Estim Creat Clear Calc 95.1 Estimated GFR > 60 Random Glucose 105 (60-115) mg/dL Calcium 10.2 (8.4-10.2) mg/dL Total Bilirubin 0.6 (0.0-1.0) mg/dL Direct Bilirubin 0.2 (0.0-0.5) mg/dL AST 18 (5-37) U/L ALT 46 H (0-40) U/L Alkaline Phosphatase 44 (39-117) U/L Total Protein 7.5 (6.5-8.0) g/dL Albumin 4.5 (3.5-5.0) g/dL Lipase 25 (8-78) U/L Urine Color Yellow Urine Appearance Clear Urine pH 7.0 (5.0-9.0) Ur Specific Carbon 1.015 (1.005-1.025) Urine Protein Negative (Neg-Trace) mg/dL Urine Glucose (UA) Negative (Negative) mg/dL Urine Ketones Negative (Negative) mg/dL Urine Blood Negative (Negative) Urine Nitrite Negative (Negative) Ur Leukocyte Esterase Negative (Negative) Independent Interpretation I performed an independent interpretation of an: CT Scan (Abdomen pelvis:1. Skin thickening, ill-defined fluid and inflammatory fat stranding is noted in the right inguinal soft tissues with few punctate foci of gas which may reflect sequelae of postsurgical change or superimposed soft tissue infection, recommend correlation with clinical exam. No organiz) Radiology Impression Discussion of test interpretation with radiology: I have reviewed the radiologist's reading. Chronic Conditions Patient?s care impacted by: Other (Recent inguinal hernia repair surgery.) Medications Administered Discontinued Medications Generic Name Dose Route Start Last Admin Trade Name Freq PRN Reason Stop Dose Admin Sodium Chloride 1,000 mls @ 999 mls/hr 11/16/22 12:53 11/16/22 14:12 Ns IV 11/16/22 13:53 Infused .Q1H1M ONE Infusion Iohexol 85 ml 11/16/22 13:59 11/16/22 13:59 Iohexol 350 Mg/Ml 100 Ml Infus..Btl IV 11/16/22 14:00 85 ml ONCE ONE Administration Morphine Sulfate 4 mg 11/16/22 12:56 11/16/22 13:23 Morphine Sulfate 4 Mg/Ml Cartridge IVPUSH 11/16/22 12:57 4 mg ONCE ONE Administration Protocol Discharge Plan Discharge Clinical Impression: Post-op pain Patient Disposition: Home, Self-Care Instructions: Pain Management After Surgery (DC) Additional Instructions: Avoid heavy lifting, straining, coughing or sneezing hard. Follow-up with Dr. Chahal as scheduled next week. Use antibiotics/pain medication as prescribed. Prescriptions: New oxycodone 5 mg tablet 5 mg PO BID PRN (Reason: pain) Qty: 10 0RF Rx Instructions: Partial Fill upon patient request. doxycycline hyclate 100 mg tablet 100 mg PO DAILY Qty: 14 0RF No Action ibuprofen 600 mg tablet 600 mg PO Q8H PRN (Reason: fever or pain) Qty: 20 0RF oxycodone-acetaminophen [Percocet] 5-325 mg tablet 1 tab PO Q4-6H PRN (Reason: pain) Qty: 30 0RF Rx Instructions: Partial Fill upon patient request. naproxen 500 mg tablet 500 mg PO BID tramadol 50 mg tablet 50 mg PO Q12H PRN (Reason: pain) Qty: 14 0RF Rx Instructions: do not take along with flexeril Referrals: Josue Chahal MD [Physician] -
[2022-11-16 12:59] VITALS: BP 149/103; PULSE 88; RESP 16; TEMP 37.1; O2SAT 98
[2022-11-16] MEDS: 0.9 % Sodium Chloride 1,000 ML 999 ML IV (13:10)
[2022-11-16 13:15] LABS: MANUAL DIFF FLAG NO
[2022-11-16 13:18] LABS: Basophils Absolute Auto 0.1 X10*3/uL (0.0-0.2); Basophils Percent Auto 0.6 % (0-2); Eosinophils Absolute Auto 0.1 X10*3/uL (0.0-0.4); Eosinophils Percent Auto 1.2 % (0-4); Hematocrit 42.6 % (42.0-52.0); Hemoglobin 14.3 g/dl (14.0-18.0); Imm Gran Abs Auto 0.03 X10*3/uL (0.00-0.03); Imm Gran Pct Auto 0.4 % (0.0-0.4); Lymphocytes Absolute Auto 2.1 X10*3/uL (1.2-4.9); Lymphocytes Percent Auto 25.9 % (20-40); Mean Corpuscular HGB Conc 33.6 g/dl (31.0-36.0); Mean Corpuscular Hemoglobin 30.3 pg (27.0-33.0); Mean Corpuscular Volume 90.3 fL (80.0-98.0); Mean Platelet Volume 9.2 fL (9.4-12.4); Monocytes Absolute Auto 0.7 X10*3/uL (0.1-1.2); Monocytes Percent Auto 8.8 % (2-11); Neutrophils Absolute Auto 5.2 x10*3/uL (2.0-8.3); Neutrophils Percent Auto 63.1 % (45-73); Platelet Count 332 X10*3/uL (160-400); Red Blood Count 4.72 X10*6/uL (4.60-5.80); Red Cell Distribution Width 13.3 % (11.0-16.0); White Blood Count 8.2 X10*3/uL (4.8-10.8)
[2022-11-16] MEDS: Morphine Sulfate 4 MG/ML CARTRIDGE IVPUSH (13:23)
--- NOTE | 2022-11-16 13:31 | PC.NURSE ---
pt a&ox3, vss, pt comes in d/t right groin pain. pt had inguinal/hernia surgery 11/08. states that pain began after pt had coughing/sneezing episode at home. 20g IV placed in the left AC w/o complications. labs drawn and sent to lab. IVF and medications administered per provider order. call lópez placed within reach.
[2022-11-16 13:38] LABS: Alanine Aminotransferase 46 U/L (0-40); Albumin Level 4.5 g/dL (3.5-5.0); Alkaline Phosphatase 44 U/L (39-117); Anion Gap 12 (12-20); Aspartate Amino Transferase 18 U/L (5-37); Bilirubin Direct 0.2 mg/dL (0.0-0.5); Bilirubin Total 0.6 mg/dL (0.0-1.0); Blood Urea Nitrogen 18 mg/dL (9-16); Calcium 10.2 mg/dL (8.4-10.2); Carbon Dioxide 25 mmol/L (22-29); Chloride 106 mmol/L (96-108); Creatinine Clr Calc Pharmacy 95.1; Estimated Glomerular Filt Rate > 60; Glucose Random 105 mg/dL (60-115); Lipase 25 U/L (8-78); Potassium 4.3 mmol/L (3.3-5.1); Sodium 139 mmol/L (135-145); Total Protein 7.5 g/dL (6.5-8.0)
--- NOTE | 2022-11-16 13:52 | PC.NURSE ---
pt currently in CT.
[2022-11-16] MEDS: iohexoL 350 MG/ML 100 ML INFUS..BTL 85 ML IV (13:59)
--- NOTE | 2022-11-16 14:08 | PC.NURSE ---
pt returned from CT. IVF connected and running. pt verbalizing that medication administration did not provide any relief sheryl. call lópez placed within reach.
--- NOTE | 2022-11-16 14:54 | PC.NURSE ---
urine obtained and sent to lab.
[2022-11-16 14:59] LABS: Appearance Urine Clear; Color Urine Yellow; Glucose Urine UA Negative (Negative); Leukocyte Esterase Urine Negative (Negative); Nitrite Urine Negative (Negative); Specific Gravity - Urine 1.015 (1.005-1.025); Urine Blood Negative (Negative); Urine Ketones Negative (Negative); Urine Protein Negative (Neg-Trace)
== END 2022-11-16 16:32 | disposition home or self-care (01) ==
PROVIDERS: Emergency Provider Emergency Medicine
DX: G89.18 Other acute postprocedural pain (principal); R10.31 Right lower quadrant pain; F17.210 Nicotine dependence, cigarettes, uncomplicated
CPT/HCPCS: 36415; 74177; 80048; 80076; 81003; 83690; 85025; 96361; 96374; 99284; J2270; Q9967

== ENCOUNTER 2022-11-21 09:18 | Outpatient (AMB) | payer OTHER, SELFPAY ==
--- NOTE | 2022-11-21 09:26 | MHC.OFFVIS ---
Intake Vital Signs 11/21/22 09:35 Height 5 ft 6 in BP 132/80 Blood Pressure Location Rt brachial Position Sitting Intake Visit Reasons: S/P RIH repair w/mesh Intake Note: This patient presents for a post-op assessment status post right inguinal hernia repair with mesh. Patient c/o; reports pain, denies problems with bowel movements. Slope Tender Required: No Accompanied by: Self / Same As Patient Allergies No Known Allergies Allergy (Verified 11/21/22 09:36) HPI S/P RIH repair w/mesh HPI Details He underwent repair of right inguinal hernia with mesh last 11/08/2022. He tolerated the procedure well. He states that he had a coughing fit few days ago and had severe pain so he had to go to the ER. He also says that he was jumped on by a newly adopted dog yesterday and says that he hit on the surgical side and he has been having pain since then. 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 Review of Systems Const Denies chills and Denies fever(s) Card Denies chest pain, Denies dyspnea and Denies dyspnea on exertion Resp Denies cough, Denies dyspnea and Denies dyspnea on exertion GI Denies hematochezia and Denies change in bowel habits Denies hematuria and Denies difficulty urinating Musc Denies back pain and Denies limited range of motion Neuro Denies focal weakness and Denies convulsions Psych Denies depression and Denies mood swings Physical Exam Const General: no acute distress Resp Effort & Inspection: normal respiratory effort GI Other: Right inguinal hernia repair site is well healed, not infected, a little edematous but no recurrence Assessment & Plan Assessment & Plan (1) Right inguinal hernia: Code(s): K40.90 - Unilateral inguinal hernia, without obstruction or gangrene, not specified as recurrent Plan: Status post repair of a right inguinal hernia with mesh. He complains of pain in the area especially after he was found on by his new dog yesterday His incision is well healed. He has a little bit of residual edema but otherwise no recurrence I will see him again in the office in about another month for another wound check. Coding Level of Care Code Global (99268) Diagnoses Right inguinal hernia K40.90
[2022-11-21 09:35] VITALS: BP 132/80
== END 2022-11-21 09:47 | disposition home or self-care (01) ==
PROVIDERS: Visit Provider Surgery
DX: K40.90 Unilateral inguinal hernia, without obstruction or gangrene, not specified as recurrent (principal)
CPT/HCPCS: 99024

== ENCOUNTER → 2022-11-21 09:18 | Outpatient (BNVA) | payer OTHER, SELFPAY | PROVIDERS: Visit Provider Surgery ==

== ENCOUNTER → 2022-12-04 11:08 | Outpatient (BNVA) | payer OTHER, SELFPAY | PROVIDERS: Visit Provider Physician Assistant Medical | DX: K40.90 Unilateral inguinal hernia, without obstruction or gangrene, not specified as recurrent (principal) | CPT/HCPCS: 99213 ==

== ENCOUNTER 2022-12-19 10:20 | Outpatient (AMB) | payer OTHER, SELFPAY ==
--- NOTE | 2022-12-19 10:27 | A.OFFVIS_ITS ---
Intake Vital Signs 12/19/22 10:33 Height 5 ft 6 in Intake Visit Reasons: S/P RIH repair w/mesh Intake Note: This patient presents for a follow-up post-op assessment status post right inguinal hernia repair with mesh. Patient c/o; reports right testicle was swollen x3 days ago, reports swelling decreased as of 2:00am this morning. Therapy Site Coordinator Required: No Accompanied by: Self / Same As Patient Allergies No Known Allergies Allergy (Verified 12/19/22 10:35) HPI S/P RIH repair w/mesh HPI Details He underwent repair of a right inguinal hernia with mesh last November 08, 2022 and is here for postop visit. He continues to feel better. He describes a little bit of swelling 3 days ago on the scrotum but this has resolved He denies significant pain. 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 Review of Systems Const Denies chills and Denies fever(s) Card Denies chest pain, Denies dyspnea and Denies dyspnea on exertion Resp Denies cough, Denies dyspnea and Denies dyspnea on exertion GI Denies hematochezia and Denies change in bowel habits Denies hematuria and Denies difficulty urinating Musc Denies back pain and Denies limited range of motion Neuro Denies focal weakness and Denies convulsions Psych Denies depression and Denies mood swings Physical Exam Const General: comfortable and no acute distress GI Other: Right inguinal hernia repair site is well healed, repair intact, no significant scrotal swelling Palpation (GI): Soft to palpation, not firm and nontender Assessment & Plan Assessment & Plan (1) Right inguinal hernia: Code(s): K40.90 - Unilateral inguinal hernia, without obstruction or gangrene, not specified as recurrent Plan: Status post repair with mesh. He continues to do well. His incision is well healed. The repair is intact. He is cleared to return to work without restrictions on 01/08/2023. Coding Level of Care Code Global (05316) Diagnoses Right inguinal hernia K40.90
== END 2022-12-19 10:39 | disposition home or self-care (01) ==
PROVIDERS: Visit Provider Surgery
DX: K40.90 Unilateral inguinal hernia, without obstruction or gangrene, not specified as recurrent (principal)
CPT/HCPCS: 99024

== ENCOUNTER → 2022-12-19 10:20 | Outpatient (BNVA) | payer OTHER, SELFPAY | PROVIDERS: Visit Provider Surgery ==

== ENCOUNTER 2023-03-19 09:07 | Outpatient (AMB) | payer BC, SELFPAY ==
[2023-03-19 09:14] VITALS: BP 150/82; PULSE 78; O2SAT 98; BMI 30.2
--- NOTE | 2023-03-19 09:14 | MHC.PC.OV ---
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 Allergies No Known Allergies Allergy (Verified 03/19/23 09:14) Medication List - Last Reconciled 03/19/23 by Tarah Jimenez MD blood pressure monitor (Blood Pressure Kit) As directed naproxen 500 mg PO BID Tobacco use date assessed: 03/19/23 Dental Screening Dental Screen Date: 03/19/23 Did you have a dental visit in the last 12 months?: Yes Did you have a dental problem in the last 6 months where you did not have access to dental care?: No Was dental information given to patient?: Patient has dentist HPI 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 Review of the notes had repair of the right inguinal hernia recently 11/08/2022. 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 PFSH Medical History (Updated 03/19/23 @ 10:15 by Tarah Jimenez MD) Right inguinal hernia Surgical History (Updated 03/16/23 @ 09:33 by Tarah Jimenez MD) History of right inguinal hernia repair Family History (Updated 03/19/23 @ 09:15 by Linda Mahmood CMA) Mother Hypertension Anxiety Social History (Updated 03/19/23 @ 10:10 by Tarah Jimenez MD) Housing: House Alcohol intake: current Alcohol intake frequency: holidays/special occasions only Comment: 3-4 x a month 3-4 beers Patient Tobacco Use Status: Current everyday Tobacco user Tobacco use type: Cigarette Cigarettes Per Day: 3 Years Smoked: started 2022- pack a day. all smoking 1.5 years now smoking pac 1.5 days. 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 1. Little interest or pleasure in doing things: several days 2. Feeling down, depressed, or hopeless: several days 3. Trouble falling or staying asleep, or sleeping too much: not at all 4. Feeling tired or having little energy: not at all 5. Poor appetite or overeating: not at all 6. Feeling bad about yourself - or that you are a failure or have let yourself or your family down: not at all 7. Trouble concentrating on things, such as reading the newspaper or watching television: not at all 8. Moving or speaking so slowly that other people could have noticed. Or the opposite - being so fidgety or restless that you have been moving around a lot more than usual: not at all 9. Thoughts that you would be better off or of hurting yourself in some way: not at all Total score: 2 Depression Screening Interpretation: Negative Depression Screening Done: Yes Source: Developed by Drs. Jun Bright, Any Irvin, Sanya Bill and colleagues, with an educational hemant from [employer]. Thrive Questionnaire Date Thrive assessed: 03/19/23 I am a: Patient What is your living situation today?: I have a steady place to live Within the past 12 months, did the food you bought not last and you didn't have the money to get more?: Never true Within the past 12 months, did you worry whether your food would run out before you got money to buy more?: Never true Do you have trouble paying for medicines?: No Do you have trouble getting transportation to medical appointments?: No Do you have trouble paying your heating and electricity bill?: No Do you have trouble taking care of your child, family member or friend?: No Do you have trouble with day-to-day activities such as bathing, preparing meals, shopping, managing finances, etc.?: No Are you currently unemployed and looking for a job?: No Are you interested in more education?: No Currently or been in a relationship where the following occur: no concerns reported AUDIT C Alcohol Use Questionnaire (AUDIT-C) 1. How often do you have a drink containing alcohol?: 2-4 times a month 2. How many drinks containing alcohol do you have on a typical day when you are drinking?: 3 or 4 3. How often do you have six or more drinks on one occasion?: Never Total Score: 3 MAVIS-7 AMB Questionnaire MAVIS-7 Date MAVIS - 7 assessed: 03/19/23 Feeling nervous, anxious, or on edge: 1 = Several days Not being able to stop or control worryin = Several days Worrying too much about different things: 1 = Several days Trouble relaxin = Several days Being so restless that it is hard to sit still: 1 = Several days Becoming easily annoyed or irritable: 1 = Several days Feeling afraid as if something awful might happen: 1 = Several days Total MAVIS-7 score (0-4 normal; 5-9 mild; 10-14 moderate; 15-21 severe): 7 Source: Developed by Drs. Jun Bright, Any Irvin, Sanya Bill and colleagues, with an educational hemant from [employer]. Physical exam (Primary Care) Vital Signs: Last Vital Signs Pulse 78 03/19/23 09:14 BP 150/82 H 03/19/23 09:14 Pulse Ox 98 03/19/23 09:14 Oxygen Delivery Method Room Air 03/19/23 09:14 BMI result Body Mass Index 30.2 Tobacco/Smoking Status: Tobacco use Status Tobacco use date assessed 03/19/23 03/19/23 09:16 Patient Tobacco Use Status Current everyday Tobacco 03/19/23 09:16 Tobacco use type Cigarette 03/19/23 09:16 e-Cigarette/Vaping Use Never Used 03/19/23 09:16 PHQ-9: PHQ-9 Score PHQ-9: Total score 2 03/19/23 09:22 Depression Screening Interpretation: Negative Thrive Assessment: Date of Thrive Assessment Date Thrive assessed 03/19/23 03/19/23 09:22 Currently or been in a relationship where the following occur: no concerns reported Const General: alert; No acute distress Eyes Conjunctivae: conjunctivae normal Resp Auscultation: clear to auscultation bilaterally Cardio Rate: regular rate Rhythm: regular rhythm GI Inspection: Yes normal to inspection Extrem General: Yes normal to inspection and No edema Assessment and Plan Assessment & Plan (1) Obesity (BMI 30.0-34.9): Code(s): E66.9 - Obesity, unspecified (2) Right inguinal hernia: Comment: Status post right inguinal hernia repair 11/08/2022 Dr. Chahal Code(s): K40.90 - Unilateral inguinal hernia, without obstruction or gangrene, not specified as recurrent (3) Abnormal liver function: Code(s): R94.5 - Abnormal results of liver function studies (4) Blood pressure elevated without history of HTN: Code(s): R03.0 - Elevated blood-pressure reading, without diagnosis of hypertension (5) Colon cancer screening: Code(s): Z12.11 - Encounter for screening for malignant neoplasm of colon (6) Elevated blood sugar: Code(s): R73.9 - Hyperglycemia, unspecified Orders: Orders Complete Blood Count Auto Diff Today R73.9 - Hyperglycemia, unspecified Comprehensive Met. Panel Today R73.9 - Hyperglycemia, unspecified Thyroid Stimulating Hormone Today R73.9 - Hyperglycemia, unspecified Lipid Panel Today E78.00 - Pure hypercholesterolemia, unspecified, R73.9 - Hyperglycemia, unspecified Hepatitis B,C Profile Today R73.9 - Hyperglycemia, unspecified, R79.89 - Other specified abnormal findings of blood chemistry Free T4 (Free Thyroxine) Today R73.9 - Hyperglycemia, unspecified Vitamin B12 and Folate Today R73.9 - Hyperglycemia, unspecified Hemoglobin A1c Today R73.9 - Hyperglycemia, unspecified Referrals Gastroenterology Referral Z12.11 - Encounter for screening for malignant neoplasm of colon Medications: New blood pressure monitor (Blood Pressure Kit) As directed 1 ea 0RF I10 - Essential (primary) hypertension, R03.0 - Elevated blood-pressure reading, without diagnosis of hypertension Coding Level of Care Code New Pt Level 4 (26009) Diagnoses Obesity (BMI 30.0-34.9) E66.9 Right inguinal hernia K40.90 Abnormal liver function R94.5 Blood pressure elevated without history of HTN R03.0 Colon cancer screening Z12.11 Elevated blood sugar R73.9
[2023-03-19 10:03] VITALS: BP 120/80
== END 2023-03-19 10:30 | disposition home or self-care (01) ==
PROVIDERS: Visit Provider Internal Medicine
DX: R94.5 Abnormal results of liver function studies (principal); E66.9 Obesity, unspecified; Z68.30 Body mass index [BMI] 30.0-30.9, adult; K40.90 Unilateral inguinal hernia, without obstruction or gangrene, not specified as recurrent; R03.0 Elevated blood-pressure reading, without diagnosis of hypertension; Z12.11 Encounter for screening for malignant neoplasm of colon; R73.9 Hyperglycemia, unspecified
CPT/HCPCS: 99204

== ENCOUNTER 2023-04-29 09:12 | Outpatient (REF) | payer BC, SELFPAY ==
[2023-04-29 09:28] LABS: MANUAL DIFF FLAG NO
[2023-04-29 10:13] LABS: Basophils Absolute Auto 0.1 X10*3/uL (0.0-0.2); Basophils Percent Auto 0.7 % (0-2); Eosinophils Absolute Auto 0.2 X10*3/uL (0.0-0.4); Eosinophils Percent Auto 2.1 % (0-4); Hematocrit 43.3 % (42.0-52.0); Hemoglobin 14.5 g/dl (14.0-18.0); Imm Gran Abs Auto 0.03 X10*3/uL (0.00-0.03); Imm Gran Pct Auto 0.4 % (0.0-0.4); Lymphocytes Absolute Auto 1.9 X10*3/uL (1.2-4.9); Lymphocytes Percent Auto 25.6 % (20-40); Mean Corpuscular HGB Conc 33.5 g/dl (31.0-36.0); Mean Corpuscular Hemoglobin 30.8 pg (27.0-33.0); Mean Corpuscular Volume 91.9 fL (80.0-98.0); Mean Platelet Volume 9.3 fL (9.4-12.4); Monocytes Absolute Auto 0.6 X10*3/uL (0.1-1.2); Neutrophils Absolute Auto 4.7 x10*3/uL (2.0-8.3); Neutrophils Percent Auto 63.2 % (45-73); Platelet Count 363 X10*3/uL (160-400); Red Blood Count 4.71 X10*6/uL (4.60-5.80); Red Cell Distribution Width 13.5 % (11.0-16.0); White Blood Count 7.5 X10*3/uL (4.8-10.8)
[2023-04-29 10:20] LABS: Estimated Average Glucose 117 mg/dL; Hemoglobin A1c % 5.7 % (<6.0)
[2023-04-29 10:53] LABS: Alanine Aminotransferase 24 U/L (0-40); Albumin Level 4.3 g/dL (3.5-5.0); Alkaline Phosphatase 50 U/L (39-117); Anion Gap 13 (12-20); Aspartate Amino Transferase 15 U/L (5-37); Bilirubin Total 0.5 mg/dL (0.0-1.0); Blood Urea Nitrogen 16 mg/dL (9-16); Calcium 8.9 mg/dL (8.4-10.2); Carbon Dioxide 26 mmol/L (22-29); Chloride 106 mmol/L (96-108); Cholesterol 170 mg/dL (<200); Estimated Glomerular Filt Rate > 60; Glucose Random 108 mg/dL (60-115); HDL Cholesterol 43 mg/dL (>40); LDL Cholesterol Calculated 118 mg/dL (<100); Potassium 4.6 mmol/L (3.3-5.1); Sodium 140 mmol/L (135-145); Total Protein 7.5 g/dL (6.5-8.0); Triglycerides 45 mg/dL (<150)
[2023-04-29 11:08] LABS: HBS Num1 0.09 mIU/mL (0-7.99); HBc Num1 0.09 S/CO (0.00-0.79); HBsAGNum1 0.35 S/CO (0.00-0.99); Hepatitis B Core Antibody Nonreactive (Nonreactive); Hepatitis B Surface Antigen Negative (Negative); ~HepC Num1 0.06 S/CO (0.00-0.79); ~Hepatitis B Surface Antibody NONREACTIVE (Nonreactive); ~Hepatitis C Antibody Nonreactive (Nonreactive)
[2023-04-29 11:12] LABS: Free T4 (Free Thyroxine) 0.92 ng/dL (0.71-1.85); Thyroid Stimulating Hormone 0.99 uIU/mL (0.32-4.0)
[2023-04-29 11:15] LABS: Folate 9.4 ng/mL (> or = 4.0); Vitamin B12 312 pg/mL (200-900)
== END 2023-04-29 09:13 | disposition home or self-care (01) ==
LOC: HO.LAB 09:12
PROVIDERS: PCP Internal Medicine; Visit Provider Internal Medicine
DX: R73.9 Hyperglycemia, unspecified (principal); E78.00 Pure hypercholesterolemia, unspecified; R79.89 Other specified abnormal findings of blood chemistry
CPT/HCPCS: 36415; 80053; 80061; 82607; 82746; 83036; 84439; 84443; 85025; 86704; 86706; 86803; 87340

== ENCOUNTER 2023-05-01 15:33 | Emergency (ER) | payer BC, SELFPAY ==
--- NOTE | ~2023-05-01 | CT_ITS ---
EXAMINATION: CT ABDOMEN AND PELVIS WITH CONTRAST CLINICAL INFORMATION: Right inguinal pain COMPARISON: CT abdomen pelvis November 16, 2022 TECHNIQUE: Multidetector volumetric images were obtained from the superior aspect of the liver through the pubic symphysis following administration 85 mL of Omnipaque 350 intravenous contrast. Sagittal and coronal reformatted images were obtained on the technologist's workstation. Oral contrast: No This CT examination was performed using dose optimization techniques as appropriate, variously including the following: *Automated exposure control *Adjustment of mA and/or kV according to patient size (this includes techniques or standardized protocols for targeted exams where dose is matched to indication/reason for exam; i.e. extremities or head) *Use of iterative reconstruction technique DLP: 541 mGy-cm FINDINGS: LUNG BASES: The visualized lung bases are unremarkable. LIVER, GALLBLADDER, AND BILIARY TREE: The liver is normal in size, shape, and attenuation. No focal hepatic lesion or biliary ductal dilatation is present. The gallbladder is unremarkable with no evidence of radiopaque gallstones, gallbladder wall thickening, or obvious pericholecystic inflammatory changes. PANCREAS: Unremarkable. SPLEEN: Unremarkable. ADRENAL GLANDS: Unremarkable. KIDNEYS AND URETERS: The kidneys are normal in size, shape, and attenuation. No hydronephrosis, hydroureter, or calculi seen. No perinephric stranding. BLADDER: Unremarkable. GASTROINTESTINAL TRACT: The small and large bowel are unremarkable. The appendix is unremarkable. 1.8 cm cortical cyst mid pole right kidney. No follow-up imaging is recommended for simple renal cyst. ABDOMINAL WALL: No significant hernia is appreciated. There is no inguinal hernia or mass. The stranding densities in the right inguinal region on the CAT scan November 16, 2022 have resolved. There is no inflammation or fluid collection. LYMPH NODES: Normal. VASCULAR: Small volume of vascular calcifications of the distal aorta and common iliac arteries. PELVIC VISCERA: Unremarkable. OSSEOUS STRUCTURES: Unremarkable. CT/CT abdomen pelvis w IV con IMPRESSION: No acute abnormality CT scan abdomen pelvis. Fleischner guidelines were followed.
[2023-05-01 16:14] VITALS: BP 146/103; PULSE 89; RESP 18; TEMP 37.2; O2SAT 98; BMI 30.2
--- NOTE | 2023-05-01 16:15 | ED_ITS ---
HPI - Abdominal Pain General Chief Complaint: Abdominal Pain Stated Complaint: groin pain Time Seen by Provider: 05/01/23 21:11 Source: patient, RN notes reviewed and old records reviewed Mode of arrival: ambulatory Limitations: no limitations History of Present Illness HPI narrative: 48-year-old male presents for evaluation of right groin pain. Patient is about 5 months status post right inguinal hernia repair with Dr. Chahal He reports over last 2-3 days he has had increasing pain to the right groin in the area of the previous hernia The pain radiates down into the right upper thigh He denies any testicular pain or swelling He reports the last time he had inguinal hernia in November the pain did radiate towards his testicle Denies any difficulty urinating or with bowel movements Related Data Home Medications Medication Instructions Recorded Confirmed naproxen 500 mg tablet 500 mg PO BID 10/16/22 03/19/23 Previous Rx's Medication Instructions Recorded blood pressure monitor (Blood #1 ea 03/19/23 Pressure Kit) cyclobenzaprine 10 mg tablet 10 mg PO TID PRN muscle spasm #20 05/01/23 tabs Allergies Allergy/AdvReac Type Severity Reaction Status Date / Time No Known Allergies Allergy Verified 05/01/23 16:14 Review of Systems Constitutional: Denies anorexia, Denies body ache(s), Denies chills and Denies fever(s) Eyes: Denies blurry vision Cardiovascular: Denies chest pain and Denies dyspnea Respiratory: Denies cough and Denies dyspnea Gastrointestinal: Reports abdominal pain, Denies nausea and Denies vomiting Genitourinary: Denies penile discharge, Denies scrotal swelling and Denies testicular pain Musculoskeletal: Reports radiating pain into limb Skin/Breast: Denies rash PMFSH Past Medical History Medical History (Updated 05/01/23 @ 22:27 by Sunil Ford) Right inguinal hernia Surgical History (Updated 03/16/23 @ 09:33 by Tarah Jimenez MD) History of right inguinal hernia repair Family History Family History (Updated 03/19/23 @ 09:15 by Linda Mahmood CMA) Mother Hypertension Anxiety Social History Social History (Updated 03/19/23 @ 10:10 by Tarah Jimenez MD) Housing: House Alcohol intake: current Alcohol intake frequency: holidays/special occasions only Comment: 3-4 x a month 3-4 beers Patient Tobacco Use Status: Current everyday Tobacco user Tobacco use type: Cigarette Cigarettes Per Day: 3 Years Smoked: started 2022- pack a day. all smoking 1.5 years now smoking pac 1.5 days. 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 Cognitive needs: No Hearing needs: No Vision needs: Yes Physical Exam ED Vital Signs: Vital Signs - 24 hr 05/01/23 16:14 05/01/23 20:51 05/01/23 22:48 Temperature 98.9 F 98.8 F Pulse Rate 89 77 Respiratory Rate 18 20 20 Blood Pressure 146/103 H 145/98 H Pulse Oximetry 98 98 Oxygen Delivery Method Room Air Room Air BMI result Body Mass Index 30.2 Const General: healthy appearing, comfortable, no acute distress, alert and awake Nutritional Appearance: well nourished Orientation/consciousness: patient oriented x3 HENMT Head: Yes normocephalic and Yes atraumatic Eyes Eyelids: Yes eyelids normal Conjunctivae: conjunctivae normal Sclerae: sclerae normal Corneas: corneas normal Pupils: Equal, round and reactive pupils present EOM: EOMs intact bilaterally Neck Neck: Yes full ROM Resp Effort & Inspection: normal respiratory effort, able to speak in complete sentences and not labored GI Inspection: No distended Palpation (GI): Soft to palpation, not firm and not rigid Auscultation: normoactive bowel sounds Other: Patient has tenderness in the right inguinal region/right groin. This extends more towards the right upper/medial thigh. No scrotal tenderness. No palpable mass or edema Male General Exam: Yes normal external exam, No edema and No erythema Scrotum: scrotum normal, no masses and no scrotal swelling Skin General skin exam: elasticity normal Neuro General: patient oriented x3 Cranial nerves: Yes Equal, round and reactive pupils present and Yes Bilaterally intact EOM present Cognition (Neuro): normal cognition Extrem Other: Moving all extremities well without any obvious deformities Course Course Course Narrative: This is rapid medical exan. deferred additional hpi, ros, pe to primary provider. 48 yo male with history of right inguinal hernia with repair here with right groin pain x 2 days. Will check labs, UA VSS Medical Decision Making Medical Decision Making MDM Narrative: 48-year-old male presents for evaluation of right groin pain. He reports frequently moving heavy objects for work. He denies any specific incidents where he felt a sharp pain but rather gradually worsening pain over the last few days. On exam his pain seems more muscular related to the right upper thigh and inguinal region rather than radiating down towards the testicle. There is no testicular swelling or pain currently. Plan for CT scan to evaluate for hernia/mesh defect. Obstructive uropathy is also on the differential but favored to be less likely Differential Diagnosis Differential Diagnoses: The differential diagnosis associated with the presentation includes Hardware failure Recurrent inguinal hernia Muscle strain Obstructive uropathy Epididymitis less likely Lab Data [facility] Lab Attestation statement: I reviewed the patient's lab results. No leukocytosis or anemia. No electrolyte abnormalities. 05/01/23 16:23 05/01/23 16:23 Labs: Lab Results 05/01/23 Range/Units 16:23 WBC 7.7 (4.8-10.8) X10*3/uL RBC 4.77 (4.60-5.80) X10*6/uL Hgb 14.4 (14.0-18.0) g/dl Hct 43.9 (42.0-52.0) % MCV 92.0 (80.0-98.0) fL MCH 30.2 (27.0-33.0) pg MCHC 32.8 (31.0-36.0) g/dl RDW 13.5 (11.0-16.0) % Plt Count 366 (160-400) X10*3/uL MPV 9.2 L (9.4-12.4) fL Immature Gran % (Auto) 0.3 (0.0-0.4) % Neut % (Auto) 53.2 (45-73) % Lymph % (Auto) 34.2 (20-40) % Cannon % (Auto) 9.2 (2-11) % Eos % (Auto) 2.3 (0-4) % Baso % (Auto) 0.8 (0-2) % Lymph # (Auto) 2.6 (1.2-4.9) X10*3/uL Cannon # (Auto) 0.7 (0.1-1.2) X10*3/uL Eos # (Auto) 0.2 (0.0-0.4) X10*3/uL Baso # (Auto) 0.1 (0.0-0.2) X10*3/uL Abs Immat Gran (auto) 0.02 (0.00-0.03) X10*3/uL Absolute Neuts (auto) 4.1 (2.0-8.3) x10*3/uL Absolute Nucleated RBC 0.000 (0.0-0.012) X10*3/uL Nucleated RBC % (auto) 0.0 (0.0-0.2) /100WBC Sodium 141 (135-145) mmol/L Potassium 4.2 (3.3-5.1) mmol/L Chloride 106 (96-108) mmol/L Carbon Dioxide 28 (22-29) mmol/L Anion Gap 11 L (12-20) BUN 14 (9-16) mg/dL Creatinine 1.02 (0.5-1.4) mg/dL Estim Creat Clear Calc 89.5 Estimated GFR > 60 Random Glucose 106 (60-115) mg/dL Calcium 9.8 D (8.4-10.2) mg/dL Total Bilirubin 0.2 (0.0-1.0) mg/dL Direct Bilirubin < 0.2 (0.0-0.5) mg/dL AST 12 (5-37) U/L ALT 21 (0-40) U/L Alkaline Phosphatase 63 (39-117) U/L Total Protein 7.9 (6.5-8.0) g/dL Albumin 4.5 (3.5-5.0) g/dL Independent Interpretation I performed an independent interpretation of an: CT Scan (Agree with Radiology interpretation) Radiology Impression Discussion of test interpretation with radiology: I have reviewed the radiologist's reading. (Unremarkable examination) Medications Administered Discontinued Medications Generic Name Dose Route Start Last Admin Trade Name Freq PRN Reason Stop Dose Admin Sodium Chloride 1,000 mls @ 999 mls/hr 05/01/23 21:30 05/01/23 22:48 Ns IV 05/01/23 22:30 999 mls/hr .Q1H1M JARRED Administration Iohexol 100 ml 05/01/23 22:28 05/01/23 22:28 Iohexol 350 Mg/Ml 100 Ml Infus..Btl IV 05/01/23 22:29 85 ml ONCE ONE Administration Morphine Sulfate 4 mg 05/01/23 21:27 05/01/23 22:48 Morphine Sulfate 4 Mg/Ml Cartridge IVPUSH 05/01/23 21:28 4 mg ONCE ONE Administration Protocol Ondansetron HCl 4 mg 05/01/23 21:27 05/01/23 22:48 Ondansetron Hcl 4 Mg/2 Ml Vial IVPUSH 05/01/23 21:28 4 mg ONCE ONE Administration Discharge Plan Discharge Clinical Impression: Right groin pain Patient Disposition: Home, Self-Care Instructions: Groin Strain (ED) Additional Instructions: Your workup in the ER today was reassuring. This includes your blood work as well as your CT scan There is no obvious hernia noted or defect in the previous mesh Use ibuprofen as needed for pain. Use cyclobenzaprine as needed for muscle spasms This may make you sleepy, did not drink alcohol or drive after taking it Prescriptions: New cyclobenzaprine 10 mg tablet 10 mg PO TID PRN (Reason: muscle spasm) Qty: 20 0RF No Action (DME) blood pressure monitor [Blood Pressure Kit] Kit See Rx Instructions .ROUTE .MEDSUPPLY Qty: 1 0RF Rx Instructions: As directed naproxen 500 mg tablet 500 mg PO BID Stand Alone Forms: Work/School Release
[2023-05-01 16:37] LABS: MANUAL DIFF FLAG NO
[2023-05-01 16:40] LABS: Basophils Absolute Auto 0.1 X10*3/uL (0.0-0.2); Basophils Percent Auto 0.8 % (0-2); Eosinophils Absolute Auto 0.2 X10*3/uL (0.0-0.4); Eosinophils Percent Auto 2.3 % (0-4); Hematocrit 43.9 % (42.0-52.0); Hemoglobin 14.4 g/dl (14.0-18.0); Imm Gran Abs Auto 0.02 X10*3/uL (0.00-0.03); Imm Gran Pct Auto 0.3 % (0.0-0.4); Lymphocytes Absolute Auto 2.6 X10*3/uL (1.2-4.9); Lymphocytes Percent Auto 34.2 % (20-40); Mean Corpuscular HGB Conc 32.8 g/dl (31.0-36.0); Mean Corpuscular Hemoglobin 30.2 pg (27.0-33.0); Mean Platelet Volume 9.2 fL (9.4-12.4); Monocytes Absolute Auto 0.7 X10*3/uL (0.1-1.2); Monocytes Percent Auto 9.2 % (2-11); Neutrophils Absolute Auto 4.1 x10*3/uL (2.0-8.3); Neutrophils Percent Auto 53.2 % (45-73); Platelet Count 366 X10*3/uL (160-400); Red Blood Count 4.77 X10*6/uL (4.60-5.80); Red Cell Distribution Width 13.5 % (11.0-16.0); White Blood Count 7.7 X10*3/uL (4.8-10.8)
[2023-05-01 17:06] LABS: Alanine Aminotransferase 21 U/L (0-40); Albumin Level 4.5 g/dL (3.5-5.0); Alkaline Phosphatase 63 U/L (39-117); Anion Gap 11 (12-20); Aspartate Amino Transferase 12 U/L (5-37); Bilirubin Direct < 0.2 mg/dL (0.0-0.5); Bilirubin Total 0.2 mg/dL (0.0-1.0); Blood Urea Nitrogen 14 mg/dL (9-16); Calcium 9.8 mg/dL (8.4-10.2); Carbon Dioxide 28 mmol/L (22-29); Chloride 106 mmol/L (96-108); Creatinine Clr Calc Pharmacy 89.5; Estimated Glomerular Filt Rate > 60; Glucose Random 106 mg/dL (60-115); Potassium 4.2 mmol/L (3.3-5.1); Sodium 141 mmol/L (135-145); Total Protein 7.9 g/dL (6.5-8.0)
[2023-05-01 20:51] VITALS: BP 145/98; PULSE 77; RESP 20; TEMP 37.1; O2SAT 98
[2023-05-01] MEDS: iohexoL 350 MG/ML 100 ML INFUS..BTL IV (22:28)
[2023-05-01 22:48] VITALS: RESP 20
[2023-05-01] MEDS: ondansetron HCL 4 MG/2 ML VIAL IVPUSH (22:48)
[2023-05-01] MEDS: 0.9 % Sodium Chloride 1,000 ML 999 ML IV (22:48)
[2023-05-01] MEDS: Morphine Sulfate 4 MG/ML CARTRIDGE IVPUSH (22:48)
== END 2023-05-02 00:05 | disposition home or self-care (01) ==
PROVIDERS: Nurse Practitioner Family; Emergency Provider Internal Medicine; PCP Internal Medicine
DX: R10.30 Lower abdominal pain, unspecified (principal); M79.651 Pain in right thigh; R33.9 Retention of urine, unspecified; F17.210 Nicotine dependence, cigarettes, uncomplicated; Z79.899 Other long term (current) drug therapy
CPT/HCPCS: 36415; 74177; 80048; 80076; 85025; 96361; 96374; 96375; 99283; 99284; J2270; J2405; Q9967

== ENCOUNTER 2023-05-02 12:54 | Outpatient (AMB) | payer BC, SELFPAY ==
--- NOTE | 2023-05-02 12:55 | MHC.OFFVIS ---
Intake Vital Signs 05/02/23 12:57 Height 5 ft 6 in Weight 187 lb 13.341 oz BMI 30.3 BP 155/111 H Blood Pressure Location Lt brachial Position Sitting Pulse 87 Intake Visit Reasons: Colonoscopy Screening Intake Note: Patient here for colonoscopy screening. Patient denies diarrhea, constipation. Billing Adjudicator Required: No Accompanied by: Self / Same As Patient Allergies No Known Allergies Allergy (Verified 05/02/23 13:00) HPI Colonoscopy Screening HPI Details 48-YEAR-OLD MALE HERE FOR PREPROCEDURAL MEETING to discuss a screening colonoscopy. He is referred by Tarah Jimenez of [facility] [place] primary care. PMX Obesity Elevated blood pressure without diagnosis of hypertension Abnormal liver functions Elevated blood sugar Right inguinal hernia Anxiety Smoker * SURGICAL HISTORY Right inguinal hernia repair * ALLERGIES: NKDA * Clickable LABS: Laboratory Tests 05/01/23 16:23 WBC 7.7 Hgb 14.4 Hct 43.9 Plt Count 366 Estimated GFR > 60 Total Bilirubin 0.2 AST 12 ALT 21 Alkaline Phosphata se 63 TODAY'S VISIT This is his first colonoscopy. There are no bowel or upper GI problems. There are no prior problems with anesthesia or sedation. He denies any cardiac or respiratory problems. No ID problems. His sister had some sort of cancer but he is unsure if it was rectal or cervical, he will try to clarify. [facility] Medical History Right inguinal hernia Surgical History History of right inguinal hernia repair Family History Mother Hypertension Anxiety Social History Housing: House Alcohol intake: current Alcohol intake frequency: holidays/special occasions only Comment: 3-4 x a month 3-4 beers Patient Tobacco Use Status: Current everyday Tobacco user Tobacco use type: Cigarette Cigarettes Per Day: 3 Years Smoked: started 2022- pack a day. all smoking 1.5 years now smoking pac 1.5 days. 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 Cognitive needs: No Hearing needs: No Vision needs: Yes Review of Systems Const Denies fatigue, Denies fever(s), Denies night sweats, Denies poor appetite and Denies weight loss Eyes Details: glasses Reports requires corrective lenses ENT Reports Normal hearing present, Denies dysphagia, Denies odynophagia, Denies throat swelling and Denies tongue swelling Card Reports no additional complaints Resp Reports no additional complaints GI Details: Denies abdominal pain, Denies melena, Denies bloating, Denies hematochezia, Denies constipation, Denies GI cramping, Denies dysphagia, Denies excessive flatus, Denies early satiety, Denies heartburn, Denies diarrhea, Denies nausea, Denies odynophagia, Denies vomiting and Denies hematemesis Skin/Breast Denies pruritus, Denies lesions, Denies rash and Denies jaundice Neuro Reports Normal hearing present and Denies Abnormal speech present Endo Denies fatigue Aller/Immun Denies throat swelling and Denies tongue swelling Physical Exam Vital Signs: Last Vital Signs Pulse 87 05/02/23 12:57 BP 155/111 H 05/02/23 12:57 BMI result Body Mass Index 30.3 Const General: cooperative, no acute distress, well developed and well groomed Nutritional Appearance: average body habitus and well nourished Orientation/consciousness: oriented to person, oriented to place and oriented to time Limitations: No language barrier HEENT Head: Yes normocephalic and Yes atraumatic Eyes General: appearance normal, both eyes and all related structures Pupils: Equal, round and reactive pupils present Neck Neck: Yes normal visual inspection and Yes no lymphadenopathy Thyroid: Thyroid normal Resp Effort & Inspection: normal respiratory effort and able to speak in complete sentences Auscultation: clear to auscultation bilaterally Cardio Rate: regular rate Rhythm: regular rhythm Heart sounds: Normal, physiologic split S2 sound present Peripheral pulses: radial pulses present and posterior tibial pulses present GI Inspection: No distended and No Abdominal panniculus present Palpation (GI): Soft to palpation, nontender, no guarding, not rigid and No hepatosplenomegaly present Percussion: Yes normal to percussion Auscultation: normal bowel sounds Rectal Exam - Male: Yes deferred Skin General skin exam: no rashes or lesions noted, turgor normal, skin not dry, no jaundice, No spider nevi and no striae Rashes: no rashes Nails: normal Neuro General: oriented to person, oriented to place and oriented to time Cranial nerves: Yes Equal, round and reactive pupils present and Yes Normal hearing present Speech: No Abnormal speech present Extrem General: Yes normal to inspection, No clubbing, No cyanosis and No edema Psych Appearance: grossly normal and well kempt Mental Status: mental status grossly normal Speech and movement: Normal speech and movement present Affect: normal affect Attitude: cooperative Thought process: Normal thought process present and not confabulating Thought content: Normal thought content present Insight: Fair insight present (Psych) Judgement: Fair judgement present (Psych) Assessment & Plan Assessment & Plan (1) Pre-op examination: Code(s): Z01.818 - Encounter for other preprocedural examination Plan This is his first colonoscopy. There are no bowel or upper GI problems. There are no prior problems with anesthesia or sedation. He denies any cardiac or respiratory problems. No ID problems. His sister had some sort of cancer but he is unsure if it was rectal or cervical, he will try to clarify. Orders: Orders Colonoscopy - GI Use Only 05/02/23 Z01.818 - Encounter for other preprocedural examination Medications: New bisacodyl (Dulcolax (bisacodyl)) 10 mg (2 x 5 mg) PO BEDTIME 4 tabs 0RF 2 days peg 3350-electrolytes 236-22.74-6.74 -5.86 gram (Golytely) until fecal effluent is clear; do not exceed a total volume of 2,000 mL 240 mL PO Q10M 4,000 mL 0RF 1 day Z12.11 - Encounter for screening for malignant neoplasm of colon Coding Level of Care Code New Pt Level 3 (12261) Diagnoses Pre-op examination Z01.818
[2023-05-02 12:57] VITALS: BP 155/111; PULSE 87; BMI 30.3
== END 2023-05-02 13:26 | disposition home or self-care (01) ==
PROVIDERS: Visit Provider Nurse Practitioner
DX: Z01.818 Encounter for other preprocedural examination (principal); Z12.11 Encounter for screening for malignant neoplasm of colon
CPT/HCPCS: S0285

== ENCOUNTER → 2023-05-02 12:54 | Outpatient (BNVA) | payer BC, SELFPAY | PROVIDERS: Visit Provider Nurse Practitioner ==

== ENCOUNTER 2023-06-05 10:16 | Outpatient (AMB) | payer BC, SELFPAY ==
[2023-06-05 11:18] VITALS: BP 120/90; PULSE 74; TEMP 36.4; O2SAT 97; BMI 30.2
--- NOTE | 2023-06-05 11:18 | MHC.OFFWIV ---
Intake Vital Signs 06/05/23 11:18 Height 5 ft 6 in Weight 187 lb BMI 30.2 BP 120/90 H Blood Pressure Location Lt brachial Position Sitting Pulse 74 Pulse Source Pulse Oximeter Temp 97.5 F Temp Source Temporal Artery Scan Pulse Oximetry (%) 97 Oxygen Delivery Method Room Air Intake Visit Reasons: EP lump on right side of neck Intake Note: pt is here today for lump on rt side of neck started yesterday Patient Tobacco Use Status: Current everyday Tobacco user Allergies No Known Allergies Allergy (Verified 06/05/23 11:33) Do you need a note to return to daycare/school/sports/work: No HPI HPI Comments History of Present Illness Details 48 y/o male patient who presents to walk in clinic with c/o right sided back lesion. He reports noticing it 3-4 days ago, now getting worse, tender to touch. The area is more red, crusting and filled with fluid. He has been applying Peroxide and A&D otc with no relief. [facility] Medical History Right inguinal hernia Surgical History History of right inguinal hernia repair Family History Mother Hypertension Anxiety Social History Housing: House Alcohol intake: current Alcohol intake frequency: holidays/special occasions only Comment: 3-4 x a month 3-4 beers Patient Tobacco Use Status: Current everyday Tobacco user Tobacco use type: Cigarette Cigarettes Per Day: 3 Years Smoked: started 2022- pack a day. all smoking 1.5 years now smoking pac 1.5 days. 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 Cognitive needs: No Hearing needs: No Vision needs: Yes Review of Systems Const All systems reviewed & are unremarkable except as noted in HPI and below Physical Exam Vital Signs: Last Vital Signs Temp 97.5 F 06/05/23 11:18 Pulse 74 06/05/23 11:18 BP 120/90 H 06/05/23 11:18 Pulse Ox 97 06/05/23 11:18 Oxygen Delivery Method Room Air 06/05/23 11:18 BMI result Body Mass Index 30.2 Const General: comfortable and no acute distress Orientation/consciousness: patient oriented x3 HEENT Head: Yes normocephalic Neck Neck: Yes full ROM and Yes trachea midline Lymphatic: no lymphadenopathy noted Neck images: 1. Vesicular rash noted. Skin Other: Vesicular rash localized at the small area of back Neck. Filled with fluid. Erythema around skin and indurated. Tender to touch. Neuro General: patient oriented x3, gait normal and moves all extremities Psych Speech and movement: Normal speech and movement present Assessment & Plan Assessment & Plan (1) Vesicular eruption of skin: Code(s): R23.8 - Other skin changes Plan: - Viral vs Bacterial - Most likely Viral (HSV) due to vesicles - Will Tx with Valtrex. - Advised Pt to return to clinic if not better in the next 72 hours. - Acetaminophen for pain relief. Coding Level of Care Code Est Pt Level 3 (92528) Diagnoses Vesicular eruption of skin R23.8 Time Spent (min) 15
== END 2023-06-05 12:15 | disposition home or self-care (01) ==
PROVIDERS: Visit Provider Nurse Practitioner Family
DX: R23.8 Other skin changes (principal)
CPT/HCPCS: 99213

== ENCOUNTER 2023-09-01 07:20 | Emergency (ER) | payer BC, SELFPAY ==
--- NOTE | ~2023-09-01 | US_ITS ---
EXAMINATION: US SCROTUM CLINICAL INFORMATION: Right inguinal and scrotal pain. COMPARISON: None available. TECHNIQUE: A sonogram of the scrotum was performed assessing calero-scale appearance and color Doppler flow. Spectral Doppler analysis of the arterial and venous flow were performed in the testes bilaterally. FINDINGS: RIGHT: Right testicle measures 3.6 x 2.1 x 2.6 cm, volume 10.2 mL. No focal testicular parenchymal lesions are visualized. Spectral Doppler analysis of the arterial and venous flow is normal in the right testis. Right epididymal head is normal in size. There is a 4 mm cyst present in the head of the epididymis. No varicocele is seen. Tiny hydrocele is seen. Right epididymal Doppler flow is normal. LEFT: Left testicle measures 3.4 x 2.0 x 2.5 cm, volume 9.0 mL. No focal testicular parenchymal lesions are visualized. Spectral Doppler analysis of the arterial and venous flow is normal in the left testis. Left epididymal head is normal in size. No varicocele or hydrocele is seen. There is a cystic area at the superior aspect of the testis with debris that may represent a spermatocele. Left epididymal Doppler flow is normal. US/US scrotum IMPRESSION: No significant abnormality is seen.
--- NOTE | ~2023-09-01 | US_ITS ---
EXAMINATION: US SCROTUM CLINICAL INFORMATION: Right inguinal and scrotal pain. COMPARISON: None available. TECHNIQUE: A sonogram of the scrotum was performed assessing calero-scale appearance and color Doppler flow. Spectral Doppler analysis of the arterial and venous flow were performed in the testes bilaterally. FINDINGS: RIGHT: Right testicle measures 3.6 x 2.1 x 2.6 cm, volume 10.2 mL. No focal testicular parenchymal lesions are visualized. Spectral Doppler analysis of the arterial and venous flow is normal in the right testis. Right epididymal head is normal in size. There is a 4 mm cyst present in the head of the epididymis. No varicocele is seen. Tiny hydrocele is seen. Right epididymal Doppler flow is normal. LEFT: Left testicle measures 3.4 x 2.0 x 2.5 cm, volume 9.0 mL. No focal testicular parenchymal lesions are visualized. Spectral Doppler analysis of the arterial and venous flow is normal in the left testis. Left epididymal head is normal in size. No varicocele or hydrocele is seen. There is a cystic area at the superior aspect of the testis with debris that may represent a spermatocele. Left epididymal Doppler flow is normal. US/US scrotum doppler IMPRESSION: No significant abnormality is seen.
--- NOTE | ~2023-09-01 | CT_ITS ---
EXAMINATION: CT ABDOMEN AND PELVIS WITH CONTRAST CLINICAL INFORMATION: Right lower quadrant and groin pain COMPARISON: CT abdomen pelvis 05/01/2023 and 11/16/2022 TECHNIQUE: Multidetector volumetric images were obtained from the superior aspect of the liver through the pubic symphysis following administration 85 mL of Omnipaque 350 intravenous contrast. Sagittal and coronal reformatted images were obtained on the technologist's workstation. Oral contrast: No This CT examination was performed using dose optimization techniques as appropriate, variously including the following: *Automated exposure control *Adjustment of mA and/or kV according to patient size (this includes techniques or standardized protocols for targeted exams where dose is matched to indication/reason for exam; i.e. extremities or head) *Use of iterative reconstruction technique DLP: 570 mGy-cm FINDINGS: LUNG BASES: The visualized lung bases are unremarkable. LIVER, GALLBLADDER, AND BILIARY TREE: The liver is normal in size, shape, and attenuation. No focal hepatic lesion or biliary ductal dilatation is present. The gallbladder is unremarkable with no evidence of radiopaque gallstones, gallbladder wall thickening, or obvious pericholecystic inflammatory changes. PANCREAS: Unremarkable. SPLEEN: Unremarkable. ADRENAL GLANDS: Unremarkable. KIDNEYS AND URETERS: The kidneys are normal in size, shape, and attenuation. No hydronephrosis, hydroureter, or calculi seen. No perinephric stranding. A benign mid right renal 1.8 cm Bosniak class I renal cyst is noted which requires no additional imaging or follow up. No solid renal masses are seen. BLADDER: Unremarkable. GASTROINTESTINAL TRACT: The small and large bowel are unremarkable. The appendix is unremarkable. ABDOMINAL WALL: No significant hernia is appreciated. Slight increase soft tissue density seen in the superior right inguinal canals similar to prior 05/01/2023 study. Inflammatory changes in the surrounding fat that were seen on the 11/16/2022 study are no longer present. LYMPH NODES: Normal. VASCULAR: Unremarkable. PELVIC VISCERA: Unremarkable. OSSEOUS STRUCTURES: Unremarkable. CT/CT abdomen pelvis w IV con IMPRESSION: 1. A cause for the patient's right lower quadrant and groin pain has not been found. 2. Incidental note made of a benign right renal cyst which requires no additional imaging or follow up. 3. Slight increase soft tissue density seen in the superior right inguinal canal similar to prior 05/01/2023 study. Inflammatory changes in the surrounding fat that were seen on the 11/16/2022 study are no longer present. Fleischner guidelines were followed.
[2023-09-01 07:30] VITALS: BP 149/104; PULSE 81; RESP 18; TEMP 36.5; O2SAT 98; BMI 34.8
--- NOTE | 2023-09-01 07:59 | ED_ITS ---
HPI - Abdominal Pain General Chief Complaint: Abdominal Pain Stated Complaint: R side groin pain Time Seen by Provider: 09/01/23 07:49 Source: patient Mode of arrival: ambulatory Limitations: no limitations History of Present Illness ED Provider: Lazaro VELASQUEZ HPI narrative: This is a 48-year-old male history of obesity, hypertension, right-sided inguinal hernia status post repair approximately a year ago per patient presenting to the emergency department with complaints of severe right-sided abdominal pain as well as right-sided groin pain/inguinal pain ongoing for the past 4 days, patient reports he has been lifting and pushing a lot of heavy items at work and this seems to be aggravating the pain, pain started as gradual it now is severe, constant in nature. Intermittently radiates to the right testicle Patient denies associated nausea, vomiting, fevers, chills, chest pain, shortness of breath, headache, vision changes, dizziness, weakness, changes in urination or bowel habits. Related Data Previous Rx's ?Medication ?Instructions ?Recorded valacyclovir 500 mg tablet 500 mg PO BID 7 days #14 tabs 06/05/23 (Valtrex) levofloxacin 750 mg tablet 750 mg PO DAILY 7 days #7 tabs 09/01/23 morphine 15 mg immediate release 15 mg PO Q6H PRN pain 5 days #10 09/01/23 tablet tabs Allergies Allergy/AdvReac Type Severity Reaction Status Date / Time No Known Allergies Allergy Verified 09/01/23 07:34 Review of Systems Review of Systems Yes all other systems are reviewed and are negative PMFSH Past Medical History Attestation statement: The following information was validated with the patient. Source: old records reviewed and nursing notes reviewed Medical History Right inguinal hernia Surgical History History of right inguinal hernia repair Family History Family History Mother Hypertension Anxiety Social History Social History Housing: House Alcohol intake: current Alcohol intake frequency: holidays/special occasions only Comment: 3-4 x a month 3-4 beers Patient Tobacco Use Status: Current everyday Tobacco user Tobacco use type: Cigarette Cigarettes Per Day: 3 Years Smoked: started 2022- pack a day. all smoking 1.5 years now smoking pac 1.5 days. 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 Will evaluate after pain medicine. Appearance: Alert.? Oriented X3.? No acute distress.? Head: Normocephalic, atraumatic, no step-offs or deformities Eyes: Pupils equal, round and reactive to light.? ENT: Pharynx normal.? Neck: Normal inspection.? Neck supple.? CVS: Normal heart rate and rhythm.? Pulses normal.? Respiratory: No respiratory distress.? Breath sounds normal.? Abdomen: Soft and tenderness to palpation to entire right side of abdomen and right inguinal region.? Skin: Skin warm and dry.? Normal skin color.? Normal skin turgor.? Extremities: No lower extremity edema.? No calf ttp. 5/5 strength to bilateral upper and lower extremities Back: No midline tenderness, no C-spine tenderness, full range of motion, no CVA tenderness bilaterally Neuro: Oriented X 3.? No motor deficit.? No sensory deficit. CN 2-12 intact Sensative exam done by my attending Dr. Tyson --> TTP to r spermatic cord Course Reevaluation(s) Reevaluation #1: CBC with a baseline normocytic anemia. Chemistry unremarkable. UA clean. Time: 10:20 Reevaluation #2: CT abdomen and pelvis not showing cause for patient's right lower quadrant and groin pain. Incidental note of benign right renal cyst which does not require any additional imaging. Slight increased soft tissue density along the superior right inguinal canal similar to prior 04/11/2023 steady. Scrotal ultrasound with normal flow bilaterally. No significant abnormality on ultrasound. Patient still had pain therefore was medicated more Dilaudid. Time: 11:34 Reevaluation #3: Patient received Dilaudid in his still having some discomfort. Discuss this case with my attending Dr. Tyson who evaluated patient states maybe early epididymitis. Recommends Ativan. Plan is to discharge patient home with Levaquin ( as recommended by attending) . Will have him follow up with PCP and return with new or worsening symptoms. Educated patient on diagnosis and treatment plan, answered all question, patient verbalizes understanding. At this time patient will be discharged home, advised to return with new or worsening symptoms. Educated on worrisome signs and symptoms and when to return. At this time I feel comfortable discharge home. Time: 13:54 Medical Decision Making Medical Decision Making [facility] Narrative: 0800 48-year-old male presents with complaints of right-sided abdominal pain and right-sided inguinal pain history of inguinal hernia repair. Physical exam with right-sided abdominal tenderness on palpation. Right inguinal pain on exam. History and physical exam concerning for inguinal hernia versus appendicitis. Unlikely torsion, acute abdomen, obstruction, pancreatitis, cholecystitis, diverticulitis. Will rule out metabolic derangements Plan labs, imaging, urine Differential Diagnosis Differential Diagnoses: The differential diagnosis associated with the presentation includes History and physical exam concerning for inguinal hernia versus appendicitis. Unlikely torsion, acute abdomen, obstruction, pancreatitis, cholecystitis, diverticulitis. Will rule out metabolic derangements Admission/Observation Consideration of admission/observation: Escalation of care including admission/observation considered Consult Healthcare Provider Management of the patient was discussed with: Senior Product Marketing Manager (attending ) Lab Data [facility] Lab Attestation statement: I reviewed the patient's lab results. 09/01/23 08:30 09/01/23 08:30 Labs: Lab Results 09/01/23 09/01/23 Range/Units 08:30 10:18 WBC 8.5 (4.8-10.8) X10*3/uL RBC 4.22 L (4.60-5.80) X10*6/uL Hgb 13.1 L (14.0-18.0) g/dl Hct 38.5 L (42.0-52.0) % MCV 91.2 (80.0-98.0) fL MCH 31.0 (27.0-33.0) pg MCHC 34.0 (31.0-36.0) g/dl RDW 13.1 (11.0-16.0) % Plt Count 313 (160-400) X10*3/uL MPV 9.2 L (9.4-12.4) fL Immature Gran % (Auto) 0.2 (0.0-0.4) % Neut % (Auto) 50.6 (45-73) % Lymph % (Auto) 36.5 (20-40) % Weber % (Auto) 9.0 (2-11) % Eos % (Auto) 3.1 (0-4) % Baso % (Auto) 0.6 (0-2) % Lymph # (Auto) 3.1 (1.2-4.9) X10*3/uL Weber # (Auto) 0.8 (0.1-1.2) X10*3/uL Eos # (Auto) 0.3 (0.0-0.4) X10*3/uL Baso # (Auto) 0.1 (0.0-0.2) X10*3/uL Abs Immat Gran (auto) 0.02 (0.00-0.03) X10*3/uL Absolute Neuts (auto) 4.3 (2.0-8.3) x10*3/uL Absolute Nucleated RBC 0.000 (0.0-0.012) X10*3/uL Nucleated RBC % (auto) 0.0 (0.0-0.2) /100WBC Sodium 142 (135-145) mmol/L Potassium 3.5 (3.3-5.1) mmol/L Chloride 109 H (96-108) mmol/L Carbon Dioxide 24 (22-29) mmol/L Anion Gap 13 (12-20) BUN 14 (9-16) mg/dL Creatinine 0.84 (0.5-1.4) mg/dL Estim Creat Clear Calc 116.3 Estimated GFR > 60 Random Glucose 108 (60-115) mg/dL Calcium 8.9 D (8.4-10.2) mg/dL Total Bilirubin 0.2 (0.0-1.0) mg/dL AST 14 (5-37) U/L ALT 20 (0-40) U/L Alkaline Phosphatase 51 (39-117) U/L Total Protein 6.7 (6.5-8.0) g/dL Albumin 3.9 (3.5-5.0) g/dL Urine Color Yellow Urine Appearance Clear Urine pH 6.5 (5.0-9.0) Ur Specific [place] 1.025 (1.005-1.025) Urine Protein Negative (Neg-Trace) mg/dL Urine Glucose (UA) Negative (Negative) mg/dL Urine Ketones Negative (Negative) mg/dL Urine Blood Negative (Negative) Urine Nitrite Negative (Negative) Ur Leukocyte Esterase Negative (Negative) Independent Interpretation I performed an independent interpretation of an: CT Scan Radiology Impression Discussion of test interpretation with radiology: I have reviewed the radiologist's reading. External Record Review External record reviewed: Inpatient record, Office record, Outpatient record, Prior outpatient labs, Prior outpatient radiology, Primary care record and Outside ED record Medications Administered Discontinued Medications Generic Name Dose Route Start Last Admin Trade Name Freq PRN Reason Stop Dose Admin Hydromorphone HCl 1 mg 09/01/23 11:34 09/01/23 11:50 Hydromorphone Hcl 1 Mg/Ml Syringe IVPUSH 09/01/23 11:35 1 mg ONCE ONE Administration Protocol Iohexol 100 ml 09/01/23 09:48 09/01/23 09:48 Iohexol 350 Mg/Ml 100 Ml Infus..Btl IV 09/01/23 09:49 85 ml ONCE ONE Administration Ketorolac Tromethamine 30 mg 09/01/23 09:03 09/01/23 09:17 Ketorolac Tromethamine 15 Mg/Ml Vial IVPUSH 09/01/23 09:04 30 mg ONCE ONE Administration Lorazepam 1 mg 09/01/23 13:33 09/01/23 13:45 Lorazepam 1 Mg Tablet PO 09/01/23 13:34 1 mg ONCE ONE Administration Morphine Sulfate 4 mg 09/01/23 09:03 09/01/23 09:19 Morphine Sulfate 4 Mg/Ml Cartridge IVPUSH 09/01/23 09:04 4 mg ONCE ONE Administration Protocol Critical Care Time Critical Care Time Critical Care Time: Yes Total Critical Care Time: 35 Attestation: I attest to this time spent taking care of the patient, obtaining history, physical, reviewing labs, imaging, speaking to my attending, specialist or hospitalist. Discharge Plan Discharge Clinical Impression: Groin pain Patient Disposition: Home, Self-Care Instructions: Epididymitis (ED), Heat Pack Application (ED), Groin Pain (ED), Warm Compress or Soak (ED) Additional Instructions: Take your medications as prescribed. If you were prescribed antibiotics today, it is important that you take your medication to their entirety, do not skip any doses, do not finish them early. Follow-up with your primary care provider this week. Return to the emergency department with new or worsening symptoms. Such as fevers, chills, chest pain, shortness of breath, nausea, vomiting, dizziness, headache, vision changes, lethargy In case of emergency call 911 A narcotic has been sent to your pharmacy please take this as prescribed. Do not take more than the prescribed dose. Narcotic medications can cause addiction. Please do not mix them with alcohol. Do not take them while driving or operating machinery. Do not take them with any other narcotics. Do not share them with friends or family. They can cause constipation. Take them only for severe pain. Your labs were reassuring CT/CT abdomen pelvis w IV con IMPRESSION: 1. A cause for the patient's right lower quadrant and groin pain has not been found. 2. Incidental note made of a benign right renal cyst which requires no additional imaging or follow up. 3. Slight increase soft tissue density seen in the superior right inguinal canal similar to prior 05/01/2023 study. Inflammatory changes in the surrounding fat that were seen on the 11/16/2022 study are no longer present. Fleischner guidelines were followed. US/US scrotum IMPRESSION: No significant abnormality is seen. RIGHT: Right testicle measures 3.6 x 2.1 x 2.6 cm, volume 10.2 mL. No focal testicular parenchymal lesions are visualized. Spectral Doppler analysis of the arterial and venous flow is normal in the right testis. Right epididymal head is normal in size. There is a 4 mm cyst present in the head of the epididymis. No varicocele is seen. Tiny hydrocele is seen. Right epididymal Doppler flow is normal. LEFT: Left testicle measures 3.4 x 2.0 x 2.5 cm, volume 9.0 mL. No focal testicular parenchymal lesions are visualized. Spectral Doppler analysis of the arterial and venous flow is normal in the left testis. Left epididymal head is normal in size. No varicocele or hydrocele is seen. There is a cystic area at the superior aspect of the testis with debris that may represent a spermatocele. Left epididymal Doppler flow is normal. Prescriptions: New levofloxacin 750 mg tablet 750 mg PO DAILY 7 Days Qty: 7 0RF morphine 15 mg tablet 15 mg PO Q6H PRN (Reason: pain) 5 Days Qty: 10 0RF Rx Instructions: Partial Fill upon patient request. No Action valacyclovir [Valtrex] 500 mg tablet 500 mg PO BID 7 Days Qty: 14 0RF Referrals: Po,Tarah Armstrong MD [Primary Care Provider] - 2 days Stand Alone Forms: Work/School Release Print Language: Frisian
[2023-09-01 08:20] VITALS: BP 158/107; PULSE 81; RESP 17; TEMP 36.8; O2SAT 99
--- NOTE | 2023-09-01 08:23 | PC.NURSE ---
Reports pain in right lower ABD and right groin area since 2 days ago, reports hx of hernia in same area. Had surgery to repair hernia last year, has mesh in place. Reports the pain is right underneath the mesh area. Feels like he over exerted himself at work this past weekend. Pain 9/10, sharp and aching, worsens with movement. Alert and oriented, breathing even and unlabored, skin warm and dry. Denies CP, SOB, dizziness, fevers, cough or trouble going to bathroom
[2023-09-01 08:41] LABS: MANUAL DIFF FLAG NO
[2023-09-01 08:43] LABS: Basophils Absolute Auto 0.1 X10*3/uL (0.0-0.2); Basophils Percent Auto 0.6 % (0-2); Eosinophils Absolute Auto 0.3 X10*3/uL (0.0-0.4); Eosinophils Percent Auto 3.1 % (0-4); Hematocrit 38.5 % (42.0-52.0); Hemoglobin 13.1 g/dl (14.0-18.0); Imm Gran Abs Auto 0.02 X10*3/uL (0.00-0.03); Imm Gran Pct Auto 0.2 % (0.0-0.4); Lymphocytes Absolute Auto 3.1 X10*3/uL (1.2-4.9); Lymphocytes Percent Auto 36.5 % (20-40); Mean Corpuscular Volume 91.2 fL (80.0-98.0); Mean Platelet Volume 9.2 fL (9.4-12.4); Monocytes Absolute Auto 0.8 X10*3/uL (0.1-1.2); Neutrophils Absolute Auto 4.3 x10*3/uL (2.0-8.3); Neutrophils Percent Auto 50.6 % (45-73); Platelet Count 313 X10*3/uL (160-400); Red Blood Count 4.22 X10*6/uL (4.60-5.80); Red Cell Distribution Width 13.1 % (11.0-16.0); White Blood Count 8.5 X10*3/uL (4.8-10.8)
[2023-09-01 08:59] LABS: Alanine Aminotransferase 20 U/L (0-40); Albumin Level 3.9 g/dL (3.5-5.0); Alkaline Phosphatase 51 U/L (39-117); Anion Gap 13 (12-20); Aspartate Amino Transferase 14 U/L (5-37); Bilirubin Total 0.2 mg/dL (0.0-1.0); Blood Urea Nitrogen 14 mg/dL (9-16); Calcium 8.9 mg/dL (8.4-10.2); Carbon Dioxide 24 mmol/L (22-29); Chloride 109 mmol/L (96-108); Creatinine Clr Calc Pharmacy 116.3; Estimated Glomerular Filt Rate > 60; Glucose Random 108 mg/dL (60-115); Potassium 3.5 mmol/L (3.3-5.1); Sodium 142 mmol/L (135-145); Total Protein 6.7 g/dL (6.5-8.0)
[2023-09-01] MEDS: Ketorolac Tromethamine 15 MG/ML VIAL 30 MG IVPUSH (09:17)
[2023-09-01 09:19] VITALS: RESP 17
[2023-09-01] MEDS: Morphine Sulfate 4 MG/ML CARTRIDGE IVPUSH (09:19)
[2023-09-01] MEDS: iohexoL 350 MG/ML 100 ML INFUS..BTL IV (09:48)
[2023-09-01 10:24] LABS: Appearance Urine Clear; Color Urine Yellow; Glucose Urine UA Negative (Negative); Leukocyte Esterase Urine Negative (Negative); Nitrite Urine Negative (Negative); PH 6.5 (5.0-9.0); Specific Gravity - Urine 1.025 (1.005-1.025); Urine Blood Negative (Negative); Urine Ketones Negative (Negative); Urine Protein Negative (Neg-Trace)
[2023-09-01 11:25] VITALS: BP 148/104; PULSE 80; RESP 18; TEMP 36.5; O2SAT 98
[2023-09-01] MEDS: HYDROmorphone HCl 1 MG/ML SYRINGE IVPUSH (11:50)
[2023-09-01] MEDS: LORazepam 1 MG TABLET PO (13:45)
[2023-09-01 14:02] VITALS: BP 124/84; PULSE 84; RESP 16; TEMP 37; O2SAT 98
== END 2023-09-01 14:03 | disposition home or self-care (01) ==
PROVIDERS: Physician Assistant; Emergency Provider Emergency Medicine; PCP Internal Medicine
DX: R10.31 Right lower quadrant pain (principal); N50.811 Right testicular pain; R10.2 Pelvic and perineal pain; F17.210 Nicotine dependence, cigarettes, uncomplicated; Z79.899 Other long term (current) drug therapy
CPT/HCPCS: 36415; 74177; 76870; 80053; 81003; 85025; 93975; 96374; 96375; 99284; J1170; J1885; J2270; Q9967

== ENCOUNTER 2023-10-23 07:02 | Day surgery (SDC) | payer BC, SELFPAY ==
[2023-10-21 11:13] VITALS: BMI 30.3
--- NOTE | 2023-10-22 10:30 | HO.ANESPROP2 ---
Documented by User: Lillian De La Torre NP 10/22/23 10:32 HPI - Anesthesia Eval Consult details Narrative: 48yo M for Colonoscopy PMFSH Active Problems Active Problems: All Active Problems Pre-op examination (Acute) Elevated blood sugar (Acute) Colon cancer screening (Acute) Blood pressure elevated without history of HTN (Acute) Abnormal liver function (Acute) Obesity (BMI 30.0-34.9) (Acute) Strain of gluteus medius (Acute) Precordial chest pain (Acute) Right inguinal hernia (Acute) Past Medical History Medical History Obesity Anxiety Right inguinal hernia Family History Family History Mother Hypertension Anxiety Family history of problems with anesthesia: No Surgical History Surgical History History of right inguinal hernia repair History of Problems with Anesthesia: No Social History Social History Housing: House Alcohol intake: current Alcohol intake frequency: does not drink Comment: 3-4 x a month 3-4 beers Patient Tobacco Use Status: Current everyday Tobacco user Tobacco use type: Cigarette Cigarettes Per Day: 3 Years Smoked: started 2022- pack a day. all smoking 1.5 years now smoking pac 1.5 days. 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 Cognitive needs: No Hearing needs: No Vision needs: Yes Meds Allergies Allergy/AdvReac Type Severity Reaction Status Date / Time No Known Allergies Allergy Verified 09/01/23 07:34 Home Medications ?Medication ?Instructions ?Recorded ?Confirmed ?Last Taken ?Type No Known Home Meds 10/21/23 10/21/23 Unknown History Exam Height,Weight and Vital Signs: Height 5 ft 6 in Weight 85.275 kg Pertinent Lab Results Pertinent Lab Results: Laboratory Tests 09/01/23 08:30 WBC 8.5 Hgb 13.1 L Hct 38.5 L Plt Count 313 Sodium 142 Potassium 3.5 Chloride 109 H Carbon Dioxide 24 BUN 14 Creatinine 0.84 Assessment and Plan Assessment Anesthesia Assessment: Chart Reviewed Final Anesthetic Review Family History of Problems with Anesthesia: No History of Problems with Anesthesia: No Documented by User: Ekaterina Camacho MD 10/23/23 09:28 [facility] Past Medical History Medical History Obesity Anxiety Right inguinal hernia Family History Family History Mother Hypertension Anxiety Surgical History Surgical History History of right inguinal hernia repair Social History Social History Housing: House Alcohol intake: current Alcohol intake frequency: does not drink Comment: 3-4 x a month 3-4 beers Patient Tobacco Use Status: Current everyday Tobacco user Tobacco use type: Cigarette Cigarettes Per Day: 3 Years Smoked: started 2022- pack a day. all smoking 1.5 years now smoking pac 1.5 days. 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 Cognitive needs: No Hearing needs: No Vision needs: Yes Meds Allergies Allergy/AdvReac Type Severity Reaction Status Date / Time No Known Allergies Allergy Verified 09/01/23 07:34 Home Medications ?Medication ?Instructions ?Recorded ?Confirmed ?Last Taken ?Type No Known Home Meds 10/21/23 10/21/23 Unknown History Exam Airway Mallampati Class: II TM Dist: >3cm Neck ROM: Full Heart: rrr Lungs: cta Assessment and Plan Assessment Anesthesia Assessment: Anesthesia Plan Discussed Final Anesthetic Review NPO: Yes ASA Class: II Final Preanesthetic Review: No Changes in Pt Med Stat, Meds/Allgs Chart Reviewed, Consent Obtained/Reviewed and Anes Risks/Benef Reviewed Patient Risk: Intermediate Procedure Risk: Low Anesthetic Plan Anesthetic Plan: MAC: Disposition: Standard PACU
[2023-10-23 07:39] VITALS: BP 114/73; PULSE 81; RESP 20; TEMP 36.9; O2SAT 97; BMI 30.7
[2023-10-23] MEDS: Lactated Ringers 1,000 ML 100 ML IVCONT (07:44)
--- NOTE | 2023-10-23 07:46 | MHC.SHP ---
Pre-Procedural Eval Section A - 24 Hr Update-Section A only Date of Service: 10/23/23 Section B - Complete if H&P > 30 days Chief Complaint: Encounter for screening for malignant neoplasm of Relevant Family History (Specify if Yes): No Relevant Social History: Tobacco Use Present Medications: see Short Stay Collaborative assessment Medical History: Significant History (obesity, anxiety) History of Previous Operations: Relevant previous surgery/procedure and date(s) (History of right inguinal hernia repair) Allergies: Allergies Allergy/AdvReac Type Severity Reaction Status Date / Time No Known Allergies Allergy Verified 09/01/23 07:34 Review of Systems Sugical H&P ROS: Negative: Constitution, Cardiovascular, Respiratory, Neurological, Psychiatric, Hem-Onc, Allergic/Immunologic, Gastrointestinal, Genitourinary, Musculoskeletal, Integumentary, Endocrine and Eyes/Ears/Nose/Throat Exam Surgical H&P Exam: Normal: HEENT, Normal: Heart, Normal: Lungs, Normal: Extremities, Normal: Abdomen, Normal: Skin and Normal: Neurological Plan Diagnosis/Plan: Unchanged I have reviewed the history and physical and performed a pertinent physical examination on my patient. No changes have occurred unless specified. Time Spent With Patient Time: Total time managing care of this patient today ____ minutes.
--- NOTE | 2023-10-23 09:10 | HO.OPN-COLON ---
Colonoscopy Operative Note Operative Note Date of Service: 10/23/23 Narrative: Operative Information Procedure Description: Colonoscopy Indication: screening Anesthesia: MAC COLONOSCOPY Instrument: Olympus variable stiffness pediatric scope 190L Colonoscopy Monitoring: Vital signs and clinical assessment, continuous EKG monitoring, Pulse oximetry, Carbon Dioxide monitoring and blood pressure monitoring were done throughout the procedure. Colon withdrawal time was 7 minutes. Procedure: The patient was placed in the left lateral decubitis position and pre-procedure medications were administered. After a digital rectal examination of the ano-rectum, the video colonoscope was inserted into the rectum and advanced through the colon to the cecum/TI. The colonoscope was slowly withdrawn in a retrograde panoramic fashion and the colon mucosa was carefully examined including a retroflexed view of the rectum. Findings and interventions are described below. Procedure Difficulty: easy Findings: Terminal Ileum-normal Cecum:normal right sided retroflexion- normal Ascending Colon: normal Transverse Colon -normal Descending Colon:normal Sigmoid Colon: normal Rectum: Retroflexion with small internal hemorrhoids seen, grade I Anorectum - normal Intervention: none Colon preparation: [place] Bowel Preparation Scale Right colon; 1-2 Transverse colon: 2 Left colon; 3 (0 = Unprepared colon segment with mucosa not seen due to solid stool that cannot be cleared. 1 = Portion of mucosa of the colon segment seen, but other areas of the colon segment not well seen due to staining, residual stool and/or opaque liquid. 2 = Minor amount of residual staining, small fragments of stool and/or opaque liquid, but mucosa of colon segment seen well. 3 = Entire mucosa of colon segment seen well with no residual staining, small fragments of stool or opaque liquid) Impression and Post Procedure Diagnosis: internal hemorrhoids Plan: High fiber diet leaflet Avoid straining at stool, epsom salts and sitz bath, anusol supps or cream Repeat Colonoscopy in 5 years due to fair prep on the right or earlier if clinically indicated Above findings were reviewed with the patient and relevant handouts were provided if indicated.
[2023-10-23 09:13] VITALS: BP 115/66; PULSE 92; RESP 18; TEMP 36.6; O2SAT 98
[2023-10-23 09:28] VITALS: BP 124/70; PULSE 90; RESP 18; TEMP 36.4; O2SAT 97
== END 2023-10-23 10:00 | disposition home or self-care (01) ==
PROVIDERS: PCP Internal Medicine; Visit Provider Internal Medicine Gastroenterology
PROC: 0DJD8ZZ Inspection of Lower Intestinal Tract, Via Natural or Artificial Opening Endoscopic (ICD-10-PCS; CPT 45378; principal; 2023-10-23 08:50)
DX: Z12.11 Encounter for screening for malignant neoplasm of colon (principal); K64.0 First degree hemorrhoids; R03.0 Elevated blood-pressure reading, without diagnosis of hypertension; R94.5 Abnormal results of liver function studies; F17.210 Nicotine dependence, cigarettes, uncomplicated
CPT/HCPCS: 45378; J2704

== ENCOUNTER → 2023-10-23 07:02 | Outpatient (BNV) | payer BC, SELFPAY | PROVIDERS: PCP Internal Medicine; Visit Provider Internal Medicine Gastroenterology | DX: Z12.11 Encounter for screening for malignant neoplasm of colon (principal); K64.0 First degree hemorrhoids | CPT/HCPCS: 45378 ==

== ENCOUNTER 2023-12-08 07:51 | Emergency (ER) | payer BC, SELFPAY ==
--- NOTE | ~2023-12-08 | US_ITS ---
EXAMINATION: US SCROTUM CLINICAL INFORMATION: Right testicular pain. COMPARISON: September 01, 2023. TECHNIQUE: A sonogram of the scrotum was performed assessing calero-scale appearance and color Doppler flow. Spectral Doppler analysis of the arterial and venous flow were performed in the testes bilaterally. FINDINGS: RIGHT: Right testicle measures 3.9 x 1.9 x 2.9 cm, volume 11 mL. No focal testicular parenchymal lesions are visualized. Spectral Doppler analysis of the arterial and venous flow is normal in the right testis. Appendix testis. Right epididymal head is normal in size. There is a 0.6 x 0.5 x 0.4 cm right epididymal cyst versus spermatocele. Physiologic right peritesticular fluid. No right varicocele is seen. Right epididymal Doppler flow is normal. The technologist submits images of a right inguinal surgical mesh which otherwise appears unremarkable. LEFT: Left testicle measures 3.7 x 2.1 x 2.4 cm, volume 10 mL. No focal testicular parenchymal lesions are visualized. Spectral Doppler analysis of the arterial and venous flow is normal in the left testis. Appendix testis. Left epididymal head is normal in size. Physiologic left peritesticular fluid. No left varicocele is seen. Left epididymal Doppler flow is normal. US/US scrotum IMPRESSION: No acute finding. Electronically signed by: James Garduno MD 12/08/2023 09:57 AM EDT
--- NOTE | ~2023-12-08 | CT_ITS ---
EXAMINATION: CT ABDOMEN AND PELVIS WITHOUT CONTRAST CLINICAL INFORMATION: Pain status post right inguinal hernia mesh repair. COMPARISON: CT scans dating between September 01, 2023 and October 22, 2022. More remote prior studies are not currently available. TECHNIQUE: Multidetector volumetric imaging was performed from the superior aspect of the liver through the pubic symphysis. Sagittal and coronal reformatted images were obtained on the technologist's workstation. This CT examination was performed using dose optimization techniques as appropriate, variously including the following: *Automated exposure control *Adjustment of mA and/or kV according to patient size (this includes techniques or standardized protocols for targeted exams where dose is matched to indication/reason for exam; i.e. extremities or head) *Use of iterative reconstruction technique DLP: 182 mGy-cm FINDINGS: LUNG BASES: The lung bases appear clear, with no evidence of inflammation or nodules. LIVER, GALLBLADDER, AND BILIARY TREE: The liver appears unremarkable in size, shape, and attenuation. No focal hepatic lesion or biliary ductal dilatation is appreciated. Unremarkable appearance of the gallbladder. PANCREAS: Unremarkable SPLEEN: Unremarkable ADRENAL GLANDS: Unremarkable KIDNEYS AND URETERS: Approximately 2 cm benign right mid simple renal cyst for which no further dedicated follow-up imaging as indicated. The kidneys otherwise appear unremarkable in size, shape, and attenuation. No hydronephrosis, hydroureter, or calculi seen. BLADDER: Unremarkable GASTROINTESTINAL TRACT: The stomach, small and large bowel appear unremarkable. No diverticulosis. Normal-appearing distal ileum and vermiform appendix. ABDOMINAL WALL: Question subtle right inguinal postsurgical changes. No significant hernia is appreciated. LYMPH NODES: No evidence of adenopathy by size criteria. VASCULAR: Unremarkable PELVIC VISCERA: Unremarkable OSSEOUS STRUCTURES: Suspect right spondylolysis at L5-S1 with asymmetry of the sacrum, probably congenital. Mild degenerative changes of the hips. CT/CT abdomen pelvis wo IV con IMPRESSION: No acute finding. Electronically signed by: James Garduno MD 12/08/2023 10:32 AM EDT
--- NOTE | ~2023-12-08 | US_ITS ---
EXAMINATION: US SCROTUM CLINICAL INFORMATION: Right testicular pain. COMPARISON: September 01, 2023. TECHNIQUE: A sonogram of the scrotum was performed assessing calero-scale appearance and color Doppler flow. Spectral Doppler analysis of the arterial and venous flow were performed in the testes bilaterally. FINDINGS: RIGHT: Right testicle measures 3.9 x 1.9 x 2.9 cm, volume 11 mL. No focal testicular parenchymal lesions are visualized. Spectral Doppler analysis of the arterial and venous flow is normal in the right testis. Appendix testis. Right epididymal head is normal in size. There is a 0.6 x 0.5 x 0.4 cm right epididymal cyst versus spermatocele. Physiologic right peritesticular fluid. No right varicocele is seen. Right epididymal Doppler flow is normal. The technologist submits images of a right inguinal surgical mesh which otherwise appears unremarkable. LEFT: Left testicle measures 3.7 x 2.1 x 2.4 cm, volume 10 mL. No focal testicular parenchymal lesions are visualized. Spectral Doppler analysis of the arterial and venous flow is normal in the left testis. Appendix testis. Left epididymal head is normal in size. Physiologic left peritesticular fluid. No left varicocele is seen. Left epididymal Doppler flow is normal. US/US scrotum doppler IMPRESSION: No acute finding. Electronically signed by: James Garduno MD 12/08/2023 09:57 AM EDT
[2023-12-08 07:54] VITALS: BP 144/92; PULSE 86; RESP 16; TEMP 37.1; O2SAT 99
[2023-12-08 08:11] LABS: MANUAL DIFF FLAG NO
[2023-12-08 08:12] LABS: Basophils Absolute Auto 0.1 X10*3/uL (0.0-0.2); Basophils Percent Auto 1.1 % (0-2); Eosinophils Absolute Auto 0.2 X10*3/uL (0.0-0.4); Eosinophils Percent Auto 2.6 % (0-4); Hematocrit 40.3 % (42.0-52.0); Hemoglobin 13.5 g/dl (14.0-18.0); Imm Gran Abs Auto 0.02 X10*3/uL (0.00-0.03); Imm Gran Pct Auto 0.3 % (0.0-0.4); Lymphocytes Absolute Auto 2.5 X10*3/uL (1.2-4.9); Lymphocytes Percent Auto 38.7 % (20-40); Mean Corpuscular HGB Conc 33.5 g/dl (31.0-36.0); Mean Corpuscular Hemoglobin 31.1 pg (27.0-33.0); Mean Corpuscular Volume 92.9 fL (80.0-98.0); Mean Platelet Volume 8.9 fL (9.4-12.4); Monocytes Absolute Auto 0.6 X10*3/uL (0.1-1.2); Monocytes Percent Auto 9.8 % (2-11); Neutrophils Absolute Auto 3.1 x10*3/uL (2.0-8.3); Neutrophils Percent Auto 47.5 % (45-73); Platelet Count 333 X10*3/uL (160-400); Red Blood Count 4.34 X10*6/uL (4.60-5.80); Red Cell Distribution Width 13.5 % (11.0-16.0); White Blood Count 6.4 X10*3/uL (4.8-10.8)
[2023-12-08 08:26] LABS: Alanine Aminotransferase 30 U/L (0-40); Albumin Level 4.2 g/dL (3.5-5.0); Alkaline Phosphatase 65 U/L (39-117); Anion Gap 12 (12-20); Aspartate Amino Transferase 18 U/L (5-37); Bilirubin Total 0.3 mg/dL (0.0-1.0); Blood Urea Nitrogen 16 mg/dL (9-16); Carbon Dioxide 25 mmol/L (22-29); Chloride 107 mmol/L (96-108); Creatinine Clr Calc Pharmacy 94.7; Estimated Glomerular Filt Rate > 60; Glucose Random 109 mg/dL (60-115); Sodium 140 mmol/L (135-145); Total Protein 7.2 g/dL (6.5-8.0)
--- NOTE | 2023-12-08 08:42 | ED_ITS ---
HPI - Abdominal Pain General Chief Complaint: Abdominal Pain Stated Complaint: pain from mesh from surgery Time Seen by Provider: 12/08/23 08:18 Source: patient Mode of arrival: ambulatory Limitations: no limitations History of Present Illness ED Provider: DR. Condon HPI narrative: this is a 48-year-old male came in for evaluation of right groin and right testicular pain started 3 days ago. Patient at for work do heavy lifting and frequent bending pain started gradually 3 days ago now is quite severe hurt more with walking has to spread his legs while walking and limping because of the pain, no nausea, vomiting, no fever, no chills. No dysuria, no frequency urination, no blood in the urine, no urethral discharge. Had a normal bowel movement this morning has been passing gas normally. History of right inguinal hernia repair with mesh placement last year. Related Data Home Medications ?Medication ?Instructions ?Recorded ?Confirmed No Known Home Meds 10/21/23 10/21/23 Allergies Allergy/AdvReac Type Severity Reaction Status Date / Time No Known Allergies Allergy Verified 12/08/23 07:57 Review of Systems Review of Systems All other systems are reviewed and are negative Constitutional: Reports as per HPI and Reports no additional constitutional complaints Eyes: Reports as per HPI and Reports no additional eye complaints Reports system reviewed and no additional complaints, except as documented Cardiovascular: Reports as per HPI and Reports no additional cardiovascular complaints Respiratory: Reports as per HPI and Reports no additional respiratory complaints Gastrointestinal: Reports as per HPI and Reports no additional gastrointestinal complaints Genitourinary: Reports no additional female genitourinary complaints Musculoskeletal: Reports no additional musculoskeletal complaints Skin/Breast: Reports system reviewed and no additional complaints, except as docu Psychiatric: Reports no additional psychiatric complaints Endocrine: Reports no additional endocrine complaints Hematologic/Lymphatic: Reports no additional hematologic/lymphatic complaints Allergic/Immunologic: Reports no additional allergic/immunologic complaints Reports system reviewed and no additional complaints, except as documented and Reports Abnormal speech present [facility] Past Medical History Medical History Obesity Anxiety Right inguinal hernia Surgical History History of right inguinal hernia repair Family History Family History Mother Hypertension Anxiety Social History Social History Housing: House Alcohol intake: current Alcohol intake frequency: does not drink Comment: 3-4 x a month 3-4 beers Patient Tobacco Use Status: Current everyday Tobacco user Tobacco use type: Cigarette Cigarettes Per Day: 3 Years Smoked: started 2022- pack a day. all smoking 1.5 years now smoking pac 1.5 days. 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 Blood pressure elevated. Heart rate normal. Respiratory rate normal. Temperature normal. Oxygen saturation normal. Appearance: Alert. Oriented X3. No acute distress. Head: Normal external exam. Normocephalic. Atraumatic. No Fraser signs noted. No raccoon eyes noted Eyes: PERRLA. EOMI. Conjunctiva and sclera normal. Eyelids normal. ENT: TM's Normal. Pharynx normal. Uvula midline. Moist mucous membranes. No trismus noted. No drooling noted. No muffled voice noted. Neck: Normal inspection. Neck supple. FROM. No adenopathy. Thyroid Normal. No meningeal signs. No neck mass noted. CVS: Normal heart rate and rhythm. Heart sound normal. No murmurs noted. Pulses normal throughout. Respiratory: No respiratory distress. Painless inspiration. Breath sounds normal. No wheezes/rales/rhonchi noted. Chest nontender. No accessory muscle usage noted or decreased air movement noted. Abdomen: Soft , right groin tenderness, rebound tenderness, no guarding.. Bowel sounds normal in all 4 quadrants. No distention noted. No organomegaly noted. No visible injury noted. exam: Uncircumcised, no rashes, bilateral cremasteric reflexes are intact, mild tenderness in the right testicle with no swelling. Back: No CVA tenderness. Full range of motion noted. Skin: Skin warm and dry. Normal skin color. Normal skin turgor. No rashes/lesions/lacerations noted. Extremities: No lower extremity edema. Extremities exhibit normal range of motion. Extremities nontender. Neuro: Oriented X 3. Cranial nerve exam: II-XII are grossly intact No motor deficit. No sensory deficit. Reflexes normal. 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 possible ilioinguinal ligament strain. elevated lipase patient has no upper abdominal pain, no nausea, no vomiting,Will prescribe NSAIDs and follow-up with Dr. Hartmann. Time: 12:32 Medical Decision Making Differential Diagnosis Differential Diagnoses: The differential diagnosis associated with the presentation includes ( post hernia repair complication, epididymitis, orchitis, UTI, kidney stone, acute appendicitis, ilioinguinal ligament strain) Admission/Observation Consideration of admission/observation: Escalation of care including admission/observation considered Lab Data MDM Lab Attestation statement: I reviewed the patient's lab results. 12/08/23 08:02 12/08/23 08:02 Labs: Lab Results 12/08/23 12/08/23 Range/Units 08:02 09:28 WBC 6.4 (4.8-10.8) X10*3/uL RBC 4.34 L (4.60-5.80) X10*6/uL Hgb 13.5 L (14.0-18.0) g/dl Hct 40.3 L (42.0-52.0) % MCV 92.9 (80.0-98.0) fL MCH 31.1 (27.0-33.0) pg MCHC 33.5 (31.0-36.0) g/dl RDW 13.5 (11.0-16.0) % Plt Count 333 (160-400) X10*3/uL MPV 8.9 L (9.4-12.4) fL Immature Gran % (Auto) 0.3 (0.0-0.4) % Neut % (Auto) 47.5 (45-73) % Lymph % (Auto) 38.7 (20-40) % [place] % (Auto) 9.8 (2-11) % Eos % (Auto) 2.6 (0-4) % Baso % (Auto) 1.1 (0-2) % Lymph # (Auto) 2.5 (1.2-4.9) X10*3/uL [place] # (Auto) 0.6 (0.1-1.2) X10*3/uL Eos # (Auto) 0.2 (0.0-0.4) X10*3/uL Baso # (Auto) 0.1 (0.0-0.2) X10*3/uL Abs Immat Gran (auto) 0.02 (0.00-0.03) X10*3/uL Absolute Neuts (auto) 3.1 (2.0-8.3) x10*3/uL Absolute Nucleated RBC 0.000 (0.0-0.012) X10*3/uL Nucleated RBC % (auto) 0.0 (0.0-0.2) /100WBC Sodium 140 (135-145) mmol/L Potassium 4.0 (3.3-5.1) mmol/L Chloride 107 (96-108) mmol/L Carbon Dioxide 25 (22-29) mmol/L Anion Gap 12 (12-20) BUN 16 (9-16) mg/dL Creatinine 0.96 (0.5-1.4) mg/dL Estim Creat Clear Calc 94.7 Estimated GFR > 60 Random Glucose 109 (60-115) mg/dL Calcium 9.0 (8.4-10.2) mg/dL Total Bilirubin 0.3 (0.0-1.0) mg/dL AST 18 (5-37) U/L ALT 30 (0-40) U/L Alkaline Phosphatase 65 (39-117) U/L Total Protein 7.2 (6.5-8.0) g/dL Albumin 4.2 (3.5-5.0) g/dL Lipase 196 H (8-78) U/L Urine Color Yellow Urine Appearance Clear Urine pH 6.5 (5.0-9.0) Ur Specific [place] 1.020 (1.005-1.025) Urine Protein Negative (Neg-Trace) mg/dL Urine Glucose (UA) Negative (Negative) mg/dL Urine Ketones Negative (Negative) mg/dL Urine Blood Negative (Negative) Urine Nitrite Negative (Negative) Ur Leukocyte Esterase Negative (Negative) Independent Interpretation I performed an independent interpretation of an: Ultrasound ( Scrotal ultrasound: No acute finding.) and CT Scan ( abdomen pelvis: No acute intra- abdominal pathology.) Radiology Impression Discussion of test interpretation with radiology: I have reviewed the radiologist's reading. Medications Administered Discontinued Medications Generic Name Dose Route Start Last Admin Trade Name Freq PRN Reason Stop Dose Admin Ketorolac Tromethamine 30 mg 12/08/23 08:27 12/08/23 09:33 Ketorolac Tromethamine 30 Mg/Ml Vial IVPUSH 12/08/23 08:28 30 mg ONCE ONE Administration Morphine Sulfate 2 mg 12/08/23 08:27 12/08/23 09:32 Morphine Sulfate 2 Mg/Ml Cartridge IVPUSH 12/08/23 08:28 2 mg ONCE ONE Administration Protocol Morphine Sulfate 2 mg 12/08/23 10:47 12/08/23 10:57 Morphine Sulfate 2 Mg/Ml Cartridge IVPUSH 12/08/23 10:48 2 mg ONCE ONE Administration Protocol Discharge Plan Discharge Clinical Impression: Ilio-inguinal strain Patient Disposition: Home, Self-Care Instructions: Muscle Strain (DC) Prescriptions: No Action No Known Home Meds Referrals: Jason Hartmann MD [Physician] - Tarah Jimenez MD [Primary Care Provider] - Print Language: Cam[place]onian
[2023-12-08 09:05] LABS: Lipase 196 U/L (8-78)
[2023-12-08] MEDS: Morphine Sulfate 2 MG/ML CARTRIDGE IVPUSH ×2 (09:32→10:57)
[2023-12-08] MEDS: Ketorolac Tromethamine 30 MG/ML VIAL IVPUSH (09:33)
[2023-12-08 09:56] LABS: Appearance Urine Clear; Color Urine Yellow; Glucose Urine UA Negative (Negative); Leukocyte Esterase Urine Negative (Negative); Nitrite Urine Negative (Negative); PH 6.5 (5.0-9.0); Urine Blood Negative (Negative); Urine Ketones Negative (Negative); Urine Protein Negative (Neg-Trace)
[2023-12-08 13:17] VITALS: BP 144/92; PULSE 86; RESP 16; TEMP 37.1; O2SAT 99
== END 2023-12-08 13:21 | disposition home or self-care (01) ==
PROVIDERS: Emergency Provider Emergency Medicine; PCP Internal Medicine
DX: S39.011A Strain of muscle, fascia and tendon of abdomen, initial encounter (principal); X50.9XXA Other and unspecified overexertion or strenuous movements or postures, initial encounter; R10.31 Right lower quadrant pain; F17.210 Nicotine dependence, cigarettes, uncomplicated; Y93.9 Activity, unspecified; Y92.9 Unspecified place or not applicable; Y99.9 Unspecified external cause status
CPT/HCPCS: 36415; 74176; 76870; 80053; 81003; 83690; 85025; 93975; 96374; 96375; 96376; 99283; 99284; J1885; J2270

== ENCOUNTER 2024-05-10 10:38 | Outpatient (AMB) | payer BC, SELFPAY ==
[2024-05-10 10:43] VITALS: BP 162/82; PULSE 80; O2SAT 97; BMI 30.2
--- NOTE | 2024-05-10 10:43 | MHC.PC.OV ---
Vital Signs 05/10/24 10:43 Height 5 ft 6 in Weight 187 lb BMI 30.2 BP 162/82 H Blood Pressure Location Lt brachial Position Sitting Pulse 80 Pulse Source Pulse Oximeter Pulse Oximetry (%) 97 Oxygen Delivery Method Room Air Intake Visit Reasons: Severe Arthritis RT Hip Allergies No Known Allergies Allergy (Verified 05/10/24 10:43) Tobacco use date assessed: 05/10/24 Dental Screening Dental Screen Date: 05/10/24 Did you have a dental visit in the last 12 months?: No Did you have a dental problem in the last 6 months where you did not have access to dental care?: No Was dental information given to patient?: No HPI Severe Arthritis RT Hip HPI Details R shoulder 4-5 days deny fall RLQ pain since surgery PFSH Medical History (Updated 05/10/24 @ 11:07 by Tarah Jimenez MD) Right groin pain Obesity Anxiety Right inguinal hernia Surgical History History of right inguinal hernia repair Family History Mother Hypertension Anxiety Social History Housing: House Alcohol intake: current Alcohol intake frequency: does not drink Comment: 3-4 x a month 3-4 beers Patient Tobacco Use Status: Current everyday Tobacco user Tobacco use type: Cigarette Cigarette Packs Per Day: 1.5 Cigarettes Per Day: 20 Years Smoked: started 2022- pack a day. all smoking 1.5 years now smoking pac 1.5 days. 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 1. Little interest or pleasure in doing things: several days 2. Feeling down, depressed, or hopeless: several days 3. Trouble falling or staying asleep, or sleeping too much: not at all 4. Feeling tired or having little energy: not at all 5. Poor appetite or overeating: not at all 6. Feeling bad about yourself - or that you are a failure or have let yourself or your family down: not at all 7. Trouble concentrating on things, such as reading the newspaper or watching television: not at all 8. Moving or speaking so slowly that other people could have noticed. Or the opposite - being so fidgety or restless that you have been moving around a lot more than usual: not at all 9. Thoughts that you would be better off or of hurting yourself in some way: not at all Total score: 2 Depression Screening Interpretation: Negative Depression Screening Done: Yes Source: Developed by Drs. Jun Bright, Any Irvin, Sanya Bill and colleagues, with an educational hemant from [employer]. Thrive Questionnaire Date Thrive assessed: 05/10/24 I am a: Patient What is your living situation today?: I have a steady place to live Within the past 12 months, did the food you bought not last and you didn't have the money to get more?: Never true Within the past 12 months, did you worry whether your food would run out before you got money to buy more?: Never true Do you have trouble paying for medicines?: No Do you have trouble getting transportation to medical appointments?: No Do you have trouble paying your heating and electricity bill?: No Do you have trouble taking care of your child, family member or friend?: No Do you have trouble with day-to-day activities such as bathing, preparing meals, shopping, managing finances, etc.?: No Are you currently unemployed and looking for a job?: No Are you interested in more education?: No Currently or been in a relationship where the following occur: No concerns reported THRIVE Score: 0 AUDIT C Alcohol Use Questionnaire (AUDIT-C) 2. How many drinks containing alcohol do you have on a typical day when you are drinking?: 1 or 2 3. How often do you have six or more drinks on one occasion?: Never Total Score: 0 MAVIS-7 AMB Questionnaire MAVIS-7 Date MAVIS - 7 assessed: 05/10/24 Feeling nervous, anxious, or on edge: 1 = Several days Not being able to stop or control worryin = Several days Worrying too much about different things: 1 = Several days Trouble relaxin = Several days Being so restless that it is hard to sit still: 1 = Several days Becoming easily annoyed or irritable: 1 = Several days Feeling afraid as if something awful might happen: 1 = Several days Total MAVIS-7 score (0-4 normal; 5-9 mild; 10-14 moderate; 15-21 severe): 7 Source: Developed by Drs. Jun Bright, Any Irvin, Sanya Bill and colleagues, with an educational hemant from [employer]. MAVIS-7 Assessment Billing MAVIS-7 Assessment Tool: MAVIS-7 Assessment 32643 Physical exam (Primary Care) Vital Signs: Last Vital Signs Pulse 80 05/10/24 10:43 BP 162/82 H 05/10/24 10:43 Pulse Ox 97 05/10/24 10:43 Oxygen Delivery Method Room Air 05/10/24 10:43 BMI result Body Mass Index 30.2 Tobacco/Smoking Status: Tobacco use Status Tobacco use date assessed 05/10/24 05/10/24 10:49 Patient Tobacco Use Status Current everyday Tobacco 05/10/24 10:49 Tobacco use type Cigarette 05/10/24 10:49 e-Cigarette/Vaping Use Never Used 05/10/24 10:49 PHQ-9: PHQ-9 Score PHQ-9: Total score 2 05/10/24 11:01 Depression Screening Interpretation: Negative Thrive Assessment: Date of Thrive Assessment Date Thrive assessed 05/10/24 05/10/24 10:49 Currently or been in a relationship where the following occur: No concerns reported Const General: alert; No acute distress Eyes Conjunctivae: conjunctivae normal Resp Auscultation: clear to auscultation bilaterally Cardio Rate: regular rate Rhythm: regular rhythm GI Inspection: Yes normal to inspection Extrem General: Yes normal to inspection and No edema Office Procedures Flu Questionnaire Does the patient have a severe egg allergy?: No Does the patient have severe life threatening allergies?: No Does the patient have a fever or illness today?: No Has the patient ever had Guillain-[place] Syndrome?: No Has the patient ever had any past reaction to a flu shot?: No Immunizations Fluarix Triv [id number] (PF) 45 mcg (15 mcg x 3)/0.5 mL IM syringe Performing Provider: Tarah Jimenez MD Performing Location: [facility] Administered by: Linda Mahmood CMA on 05/10/24 11:23 Dose Route Admin Location Dispensed Lot Number Expiration Date NDC [employer] 0.5 mL IM Left Deltoid 0.5 mL [id number] 09/06/24 [id number] [employer] VIS Given Date VIS Provided VIS Publication Date 05/10/24 Single Vaccine 20 Eligibility Eligibility Date Funding Source Not [facility] Eligible 05/10/24 Private Coding Level of Care Code Est Pt Level 4 (70735) Diagnoses Impaired glucose tolerance R73.02 Blood pressure elevated without history of HTN R03.0 Obesity (BMI 30.0-34.9) E66.9 Right groin pain R10.31 Right shoulder pain M25.511 Additional Codes MAVIS-7 Assessment Billing - MAVIS-7 Assessment Tool: MAVIS-7 Assessment 69988 ([id number]) Assessment & Plan Assessment & Plan (1) Impaired glucose tolerance: Code(s): R73.02 - Impaired glucose tolerance (oral) Category: Medical Plan: Decrease the amount of carbohydrate intake, pasta, bread, rice and potatoes are all sugar and that is aside from all the sweet stuff, remember that fruits are good but they are Sweet also. (2) Blood pressure elevated without history of HTN: Code(s): R03.0 - Elevated blood-pressure reading, without diagnosis of hypertension Category: Medical Plan: Concern that the blood pressure we are getting is elevated (3) Obesity (BMI 30.0-34.9): Code(s): E66.9 - Obesity, unspecified Category: Medical Plan: Diet and exercise (4) Right groin pain: Code(s): R10.31 - Right lower quadrant pain Category: Medical (5) Right shoulder pain: Code(s): M25.511 - Pain in right shoulder Category: Medical Plan History of Present Illness Health Maintenance - Colonoscopy completed on October 23, 2023: findings included internal hemorrhoids. - Follow-up colonoscopy recommended in 5 years due to fair preparation. - Blood work shows mild anemia with a hemoglobin level of 13.5 g/dL; normal sodium, potassium, and renal function. - Elevated blood sugar levels noted, warranting further surveillance. - Discussion on reducing sugar intake, particularly sodas, to help manage glucose levels. - Planned follow-up blood work and hemoglobin A1c to assess overall blood sugar control over time. 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 - Diet rich in sugar-laden drinks, specifically high soda intake. - Expresses need for potential shift reduction to 8-hour days for health improvement. Review of Systems - Musculoskeletal: Reports pain in the right groin, right testicle, and right shoulder; no redness or rash observed. Physical Exam - Musculoskeletal- Right shoulder pain on movement with suspected limited range of motion. - Lower extremity- No pain on limb extension and flexion testing. - Abdominal- No tenderness or abnormalities noted. Results - Colonoscopy (October 23, 2023): Internal hemorrhoids. - CT Scan (November 2023): Mild degenerative changes at L5-S1, ilioinguinal strain confirmed. - MRI (September 2022): Mild arthritis. - Blood work (November 2023): Hemoglobin at 13.5 g/dL, elevated blood sugar levels ranging from 105-109 mg/dL. Plan The patient should focus on reducing high sugar intake, particularly sodas, to manage elevated blood sugar. Follow-up blood work, including a hemoglobin A1c, is planned to better assess glucose regulation. Pain management includes starting meloxicam for inflammation control related to mild arthritis and suspected right rotator cuff injury. An orthopedic consultation will further address musculoskeletal concerns. The patient will begin physical therapy to enhance recovery and functionality of the right shoulder and groin, linked to physical strain and minor ilioinguinal injuries. Ongoing blood pressure monitoring is indicated, and adjustments may be needed depending on future readings. Flu vaccination is encouraged due to current flu season risks. Patient was informed and verbally consented to the use of an ambient scribe for clinic note documentation during this visit. Discussion Notes I discussed with the patient the importance of addressing his elevated blood sugar and hypertension through lifestyle changes, particularly by cutting down on soda intake. We talked about prescribing meloxicam as a safer alternative to manage inflammatory pain, with emphasis on taking it with food due to potential gastrointestinal side effects. I outlined the necessity of an orthopedic evaluation for the right shoulder to rule out a rotator cuff tear and introduced the option of physical therapy to manage muscle strain and improve shoulder function. The need for regular monitoring of blood pressure and potential medical interventions for hypertension should muscle strain persist was explained. We also navigated the implications of his colonoscopy findings and subsequent five-year surveillance requirement. The patient consented to a flu shot considering the current seasonal surge and was advised on fast-tracking blood work appointments for optimal assessment. Patient Instructions - Limit intake of sugary beverages, especially sodas, to help control blood sugar levels. - Take meloxicam daily with food for shoulder pain management. - Schedule an orthopedic consultation for further evaluation of the shoulder. - Attend physical therapy sessions as directed to improve strength and flexibility. - Return for follow-up blood work and hemoglobin A1c assessment. - Monitor blood pressure regularly; report persistently high readings. - Receive a flu shot today, remain vigilant during flu season. - Follow up with me for any additional concerns or changes in symptoms. Orders: Orders XR shoulder RT min 2V Today M25.511 - Pain in right shoulder Lipid Panel Today E78.00 - Pure hypercholesterolemia, unspecified, R73.02 - Impaired glucose tolerance (oral) Thyroid Stimulating Hormone Today R73.02 - Impaired glucose tolerance (oral) Vitamin B12 and Folate Today R73.02 - Impaired glucose tolerance (oral) Complete Blood Count Auto Diff Today R73.02 - Impaired glucose tolerance (oral) Comprehensive Met. Panel Today R73.02 - Impaired glucose tolerance (oral) Free T4 (Free Thyroxine) Today R73.02 - Impaired glucose tolerance (oral) Hemoglobin A1c Today R73.02 - Impaired glucose tolerance (oral) Prostate Specific Antigen Scr Today R73.02 - Impaired glucose tolerance (oral) Ferritin Today R73.02 - Impaired glucose tolerance (oral) Reticulocyte Count Today R73.02 - Impaired glucose tolerance (oral) IRON PROFILE Today R73.02 - Impaired glucose tolerance (oral) PT Evaluation and Treatment Today M25.511 - Pain in right shoulder, R10.31 - Right lower quadrant pain Referrals Orthopedics Referral M25.511 - Pain in right shoulder Medications: New cyclobenzaprine 10 mg PO TID PRN 30 tabs 0RF muscle spasm R10.31 - Right lower quadrant pain meloxicam 15 mg PO DAILY 30 tabs 0RF M25.511 - Pain in right shoulder
--- OUTSIDE RECORDS SUMMARY | 2024-05-10 12:25 | XMS_ITS | Clinical Summary ---
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 Name Role Phone Unavailable Primary Care Provider Unavailabl e Social History Tobacco Use Types Packs/Day Years Used Date Smoking Tobacco: Never Assessed Sex and Gender Information Value Date Recorded Sex Assigned at Not on file Legal Sex Male 4:47 PM EST Gender Identity Not on file Sexual Orientation Not on file Plan of Treatment Health Maintenance Due Date Last Done Comments DTaP,Tdap,and Td Vaccines (1 - Tdap) 1993 Hepatitis B Vaccines (1 of 3 - 19+ 3-dose series) 1993 Cholesterol Screening (Lipid Panel) 02/06/2022 Colorectal Cancer Screening: Colonoscopy 02/06/2022 Depression Screening 02/06/2022 HIV Screening 02/06/2022 Hepatitis C Screening 02/06/2022 Social Influencers of Health Screening 02/06/2022 COVID-19 Vaccine ( - 2023-2 5 season) 2023 Influenza Vaccine (#1) 2023 Pneumococcal Vaccine: 50+ Ye ars (1 of 1 - PCV) 2024 Zoster Vaccines (1 of 2) 2024 HIB Vaccines Aged Out No longer eligi ble based on patient's age to complete this topic HPV Vaccines Aged Out No longer eligi ble based on patient's age to complete this topic Hepatitis A Vaccines Aged Out No long er eligible based on patient's age to complete this topic IPV Vaccines Aged Out No longer eligi ble based on patient's age to complete this topic MMR Vaccines Aged Out No longer eligi ble based on patient's age to complete this topic Meningococcal ACWY Vaccine Aged Out N o longer eligible based on patient's age to complete this topic Meningococcal B Vacine Aged Out No lo nger eligible based on patient's age to complete this topic Pneumococcal Vaccine: Pediat rics (0 to 5 Years) and At-Risk Patients (6 to 64 Years) Aged Out No longer eligible b ased on patient's age to complete this topic RSV Immunization Patients Un carmen 20 months Aged Out No longer eligible b ased on patient's age to complete this topic Varicella Vaccines Aged Out No longer eligible based on patient's age to complete this topic
== END 2024-05-10 11:59 | disposition home or self-care (01) ==
PROVIDERS: PCP Internal Medicine; Visit Provider Internal Medicine
DX: R73.02 Impaired glucose tolerance (oral) (principal); R03.0 Elevated blood-pressure reading, without diagnosis of hypertension; E66.9 Obesity, unspecified; Z68.30 Body mass index [BMI] 30.0-30.9, adult; R10.31 Right lower quadrant pain; M25.511 Pain in right shoulder; Z23 Encounter for immunization

== ENCOUNTER 2024-05-10 10:38 | Outpatient (REF) | payer BC, SELFPAY ==
--- NOTE | ~2024-05-10 | XR_ITS ---
EXAMINATION: XR SHOULDER, RIGHT CLINICAL INFORMATION: M25.511 - Pain in right shoulder COMPARISON: None available. TECHNIQUE: AP external rotation, Grashey, scapular Y, and axillary views of the right shoulder. FINDINGS: The glenohumeral and AC joint spaces maintained. There is inferior and glenohumeral joint spurring and osteoarthropathy. There are no loose bodies. No soft tissue calcifications. No acute fracture or dislocation. XR/XR shoulder RT min 2V IMPRESSION: Degenerative changes inferior right glenohumeral joint. Electronically signed by: Alonzo Haynes MD 05/11/2024 08:46 AM EST
--- OUTSIDE RECORDS SUMMARY | 2024-05-10 13:55 | XMS_ITS | Clinical Summary ---
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
== END 2024-05-10 10:39 | disposition home or self-care (01) ==
LOC: HO.XRAY 10:38
PROVIDERS: PCP Internal Medicine; Visit Provider Internal Medicine
DX: M25.511 Pain in right shoulder (principal); R10.31 Right lower quadrant pain; R73.02 Impaired glucose tolerance (oral); R03.0 Elevated blood-pressure reading, without diagnosis of hypertension; E66.9 Obesity, unspecified; Z68.30 Body mass index [BMI] 30.0-30.9, adult; Z23 Encounter for immunization
CPT/HCPCS: 73030; 90471; 90656; 96127

== ENCOUNTER → 2024-05-10 11:45 | Outpatient (BNV) | payer BC, SELFPAY | PROVIDERS: PCP Internal Medicine; Visit Provider Radiology Diagnostic Radiology | DX: M25.511 Pain in right shoulder (principal) | CPT/HCPCS: 73030 ==

== ENCOUNTER 2024-06-14 18:04 | Emergency (ER) | payer BC, SELFPAY ==
--- NOTE | ~2024-06-14 | XR_ITS ---
CLINICAL HISTORY: pain. 3 view right shoulder Comparison: CR/SR - XR SHOULDER RT MIN 2V - 05/10/24 12:02 EST Findings: No acute fracture or dislocation. Inferior glenohumeral osteoarthritic changes again noted. Regional soft tissues normal. IMPRESSION: 1. No acute finding. Stable inferior glenohumeral arthritic changes. This document has been electronically signed by: Derek Tran MD on 06/14/2024 20:14:41
--- NOTE | ~2024-06-14 | CT_ITS ---
CLINICAL HISTORY: headache CT cervical spine without contrast Comparison: None Findings: Cervical vertebral body heights maintained. No traumatic listhesis, subluxation, or dislocation demonstrated. No acute fracture identified. Diffuse dgmr-jt-lfskwxbp degenerative changes in the cervical spine. Bulky partially fused anterior osteophytes at C4, C5, and C6 suggestive of diffuse idiopathic skeletal hyperostosis. No acute prevertebral or paraspinous soft tissue finding. Visualized portions of the lung apices are clear. IMPRESSION: 1. No CT evidence of acute traumatic cervical spine injury. This document has been electronically signed by: Derek Tran MD on 06/14/2024 20:21:56
--- NOTE | ~2024-06-14 | CT_ITS ---
CLINICAL HISTORY: headache CT head without contrast COMPARISON: CR/SR - XR SHOULDER RT MIN 2V - 05/10/24 12:02 EST FINDINGS: No acute intracranial hemorrhage, extra-axial fluid collection, mass effect, or midline shift. Ventricular system and basilar cisterns are patent. Baker-white matter differentiation is maintained. No gross orbital abnormality. No suspicious or acute bone lesion. Mastoid air cells and paranasal sinuses are predominantly clear. IMPRESSION: 1. No acute intracranial abnormality. This document has been electronically signed by: Derek Tran MD on 06/14/2024 20:24:00
[2024-06-14 18:17] VITALS: BP 152/108; PULSE 99; RESP 16; TEMP 36.9; O2SAT 96
--- NOTE | 2024-06-14 21:12 | ED.EXTPRO ---
HPI - Extremity Problem General Chief complaint: Extremity Injury, Upper Stated complaint: migraine,right shoulder pain Time Seen by Provider: 06/14/24 22:17 Source: patient Mode of arrival: ambulatory Limitations: no limitations History of Present Illness ED Provider: HPI Narrative: Patient has chronic right shoulder pain followed by orthopedics does have history of migraine complaining of increased headache and right-sided pain for last few days denies trauma had does have light sensitivity because of pain patient is not able to move his right arm Related Data Previous Rx's ?Medication ?Instructions ?Recorded cyclobenzaprine 10 mg tablet 10 mg PO TID PRN muscle spasm #30 05/10/24 tabs meloxicam 15 mg tablet 15 mg PO DAILY #30 tabs 05/10/24 aiwkbprbdq-gkvnvzgykfrmg-tcoqcxls 1 tab PO Q6H PRN haeadace #20 tabs 06/15/24 50 mg-325 mg-40 mg tablet oxycodone 5 mg tablet 5 mg PO Q6H PRN pain #20 tabs 06/15/24 Allergies Allergy/AdvReac Type Severity Reaction Status Date / Time No Known Allergies Allergy Verified 06/14/24 18:23 Review of Systems Review of Systems: Yes all other systems are reviewed and are negative PMF Past Medical History Medical History Right groin pain Obesity Anxiety Right inguinal hernia Surgical History History of right inguinal hernia repair Family History Family History Mother Hypertension Anxiety Social History Social History Housing: House Alcohol intake: current Alcohol intake frequency: does not drink Comment: 3-4 x a month 3-4 beers Patient Tobacco Use Status: Current everyday Tobacco user Tobacco use type: Cigarette Cigarette Packs Per Day: 1.5 Cigarettes Per Day: 20 Years Smoked: started 2022- pack a day. all smoking 1.5 years now smoking pac 1.5 days. 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 Oriented X3. No acute distress. Eyes: PERRLA, No Nystagmus ENT: Pharynx normal. Oral Mucosa moist Neck: Normal inspection. Neck supple. CVS: Normal heart rate and rhythm. Pulses normal. Respiratory: No respiratory distress. Equal air entry bilateral, no wheezing/rales/rhonchi Abdomen: Soft and nontender. Bowel sounds are present, no mass palpable, no CVA tenderness Skin: Skin warm and dry. Normal skin color. Normal skin turgor. back: Diffuse tenderness right shoulder and right side of the neck neurovascular intact Extremities: No lower extremity edema. No calf tenderness Neuro: Oriented X 3. No motor deficit. No sensory deficit.No cerebellar signs , cranial nerves II-XII intact Course Course Course Narrative: RME: 49-year-old male presents to ED for headache, right posterior neck pain, and right shoulder pain. Patient denies any recent trauma. Patient states history of migraine. Patient states no relief with meloxicam and Flexeril. Patient denies any recent trauma. No neuro deficits on exam. Images ordered. Medications Administered Discontinued Medications Generic Name Dose Route Start Last Admin Trade Name Fannie PRN Reason Stop Dose Admin Acetaminophen/Butalbital/Caffeine 1 tab 06/14/24 22:36 06/14/24 22:47 Butalb/Acetamin/Caff 50/325/40 Tablet PO 06/14/24 22:37 1 tab ONCE ONE Administration Dexamethasone Sodium Phosphate 10 mg 06/14/24 23:30 06/14/24 23:57 Dexamethasone Sod Phosphate 10 Mg/Ml Vial IVPUSH 06/14/24 23:31 10 mg ONCE ONE Administration Diphenhydramine HCl 50 mg 06/14/24 23:30 06/14/24 23:57 Diphenhydramine Hcl 50 Mg/Ml Vial IVPUSH 06/14/24 23:31 50 mg ONCE ONE Administration Ketorolac Tromethamine 30 mg 06/14/24 23:30 06/14/24 23:58 Ketorolac Tromethamine 30 Mg/Ml Vial IVPUSH 06/14/24 23:31 30 mg ONCE ONE Administration Ondansetron HCl 4 mg 06/14/24 22:36 06/14/24 22:47 Ondansetron Odt 4 Mg Tab.Rapdis TRANSLINGU 06/14/24 22:37 4 mg ONCE ONE Administration Oxycodone HCl 10 mg 06/15/24 01:08 06/15/24 01:14 Oxycodone Hcl Immed Release 5 Mg Tablet PO 06/15/24 01:09 10 mg ONCE ONE Administration Sumatriptan Succinate 6 mg 06/14/24 22:36 06/14/24 22:46 Sumatriptan Succinate 6 Mg/0.5 Ml Vial SUBCUT 06/14/24 22:37 6 mg ONCE ONE Administration Medical Decision Making Medical Decision Making [facility] Narrative: Patient with chronic right shoulder pain been followed by orthopedics comes here for headache and worsening of the pain CT scan of the head and C-spine negative for acute initially with dextrose dried patient did not like the response will give Decadron Toradol and Benadryl cocktail Patient felt better after this will discharge patient home Discharge Plan Discharge Clinical Impression: Headache, migraine, Right shoulder pain Patient Disposition: Home, Self-Care Instructions: Migraine Headache (ED), Shoulder Pain (ED) Additional Instructions: Take pain medication as prescribed Fioricet for headaches as prescribed Follow with your PCP and ortho if not better Prescriptions: New emxkhdxocw-gzhlczejqkfcq-zaus 50-325-40 mg tablet 1 tab PO Q6H PRN (Reason: haeadace) Qty: 20 0RF oxycodone 5 mg tablet 5 mg PO Q6H PRN (Reason: pain) Qty: 20 0RF Rx Instructions: Partial Fill upon patient request. No Action cyclobenzaprine 10 mg tablet 10 mg PO TID PRN (Reason: muscle spasm) Qty: 30 0RF meloxicam 15 mg tablet 15 mg PO DAILY Qty: 30 0RF Stand Alone Forms: Work/School Release Interventions: ED Discharge Assessment Last Done: 06/15/24 01:18 Discharge Date/Time: 06/15/24 01:20 Print Language: Kyrgyz
[2024-06-14 22:14] VITALS: BP 158/102; PULSE 81; RESP 18; TEMP 36.8; O2SAT 98
--- OUTSIDE RECORDS SUMMARY | 2024-06-14 22:17 | XMS_ITS | Clinical Summary ---
Author Organization [facility] Address [address] [place] [address] Care Team Providers Care Cracker Dough Mixer Name Role Phone Unavailable Primary Care Provider [...] age to complete this topic Meningococcal B Vaccine Aged Out No l onger eligible based on patient's age to complete [...]
--- NOTE | 2024-06-14 22:38 | PC.NURSE ---
Patient presents with migraine symptoms started on . C/o right sided ARGUETA radiating behind right eye and shoulder.
[2024-06-14] MEDS: SUMAtriptan succinate 6 MG/0.5 ML VIAL SUBCUT (22:46)
[2024-06-14] MEDS: Butalb/Acetamin/Caff 50/325/40 TABLET 1 TAB PO (22:47)
[2024-06-14] MEDS: Ondansetron ODT 4 MG TAB.RAPDIS TRANSLINGU (22:47)
[2024-06-14] MEDS: diphenhydrAMINE HCL 50 MG/ML VIAL IVPUSH (23:57)
[2024-06-14] MEDS: dexAMETHasone sod phosphate 10 MG/ML VIAL IVPUSH (23:57)
[2024-06-14] MEDS: Ketorolac Tromethamine 30 MG/ML VIAL IVPUSH (23:58)
[2024-06-15 00:32] VITALS: BP 173/110; PULSE 140; RESP 16; TEMP 36.8; O2SAT 98
[2024-06-15 01:10] VITALS: BP 151/125; PULSE 95; RESP 20; O2SAT 97
[2024-06-15] MEDS: oxyCODONE HCl Immed Release 5 MG TABLET 10 MG PO (01:14)
[2024-06-15 01:18] VITALS: BP 151/125; PULSE 95; RESP 20; TEMP 36.8; O2SAT 97
== END 2024-06-15 01:20 | disposition home or self-care (01) ==
PROVIDERS: Emergency Provider Internal Medicine; PCP Internal Medicine
DX: G43.909 Migraine, unspecified, not intractable, without status migrainosus (principal); M25.511 Pain in right shoulder; M54.2 Cervicalgia; Z79.899 Other long term (current) drug therapy; F17.210 Nicotine dependence, cigarettes, uncomplicated
CPT/HCPCS: 70450; 72125; 73030; 96372; 96374; 96375; 99284; J1100; J1200; J1885; J3030

== ENCOUNTER → 2024-06-14 19:30 | Outpatient (BNV) | payer BC, SELFPAY | PROVIDERS: PCP Internal Medicine; Visit Provider Radiology Diagnostic Radiology | DX: R51.9 Headache, unspecified (principal); M25.511 Pain in right shoulder | CPT/HCPCS: 70450; 72125; 73030 ==

== ENCOUNTER 2024-06-18 14:45 | Outpatient (AMB) | payer BC, SELFPAY ==
--- NOTE | 2024-06-18 14:52 | A.OFFPC_ITS ---
Vital Signs 06/18/24 14:53 Height 5 ft 6 in Weight 188 lb 4 oz BMI 30.4 BP 140/90 H Blood Pressure Location Lt brachial Position Sitting Pulse Source Pulse Oximeter Temp 97.1 F Temp Source Temporal Artery Scan Pulse Oximetry (%) 96 Oxygen Delivery Method Room Air Intake Visit Reasons: ER visit @[facility] on 06/14/24 Intake Note: Patient is here to follow-up after a visit the emergency department at [facility] visit on 06/14/24. Requesting referral for psy due to sever anxiety. Fermentation Operator Required: No Creative Arts Therapist: Present Accompanied by: Spouse Allergies No Known Allergies Allergy (Verified 06/18/24 14:53) Tobacco use date assessed: 06/18/24 Dental Screening Dental Screen Date: 05/10/24 HPI HPI Comments History of Present Illness Details 49 y/o Male patient who presents to the clinic today for EDF. He was admitted at [facility] on 06/14/24 for c/o Chronic right shoulder pain and chronic right Hip Pain. 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 He is right hand Dominant. Reports that shoulder pain radiates all the up to the back of Neck causing Headaches. Reports right Hip Pain radiates down to his right Groin. He did have Right Inguinal Hernia repair in the past. He saw Ortho and did Physical therapy 3 years ago with good results. He is currently waiting on the Appointment with Orthopedics (Scheduled 06/24) and he does PT sessions twice a week for the shoulder. Imaging of right shoulder showed: No acute fracture or dislocation. Inferior Glenohumeral osteoarthritic changes again noted. Regional soft tissues normal. CT cervical Neck showed: Cervical vertebral body heights maintained. No tra umatic listhesis, subluxation, or dislocation demonstrated. No acute fracture identified. Diffuse jyjz-et-rfqqazhh degenerative changes in the cervical spine. MRI B/L Hips 2022: IMPRESSION: Mild gluteus minimus tendinosis. No tears. Right adductors appear intact without appreciable strain or tear. Mild osteoarthritis in the hips. [facility] Medical History (Updated 06/18/24 @ 15:39 by Karmen Senior NP) Degenerative joint disease (DJD) of hip Degenerative joint disease, shoulder, right Right groin pain Obesity Anxiety Right inguinal hernia Surgical History History of right inguinal hernia repair Family History Mother Hypertension Anxiety Social History Housing: House Alcohol intake: current Alcohol intake frequency: does not drink Comment: 3-4 x a month 3-4 beers Patient Tobacco Use Status: Current everyday Tobacco user Tobacco use type: Cigarette Cigarette Packs Per Day: 1 Cigarettes Per Day: 20 Years Smoked: started 2022- pack a day. all smoking 1.5 years now smoking pac 1.5 days. 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 Cognitive needs: No Hearing needs: No Vision needs: Yes Questionnaire Thrive Questionnaire Date Thrive assessed: 05/10/24 MAVIS-7 AMB Questionnaire MAVIS-7 Date MAVIS - 7 assessed: 06/18/24 Feeling nervous, anxious, or on edge: 3 = Nearly every day Not being able to stop or control worryin = Nearly every day Worrying too much about different things: 3 = Nearly every day Trouble relaxin = Nearly every day Being so restless that it is hard to sit still: 3 = Nearly every day Becoming easily annoyed or irritable: 3 = Nearly every day Feeling afraid as if something awful might happen: 1 = Several days Total MAVIS-7 score (0-4 normal; 5-9 mild; 10-14 moderate; 15-21 severe): 19 Source: Developed by Drs. Jun Bright, Any Irvin, Sanya Bill and colleagues, with an educational hemant from [employer]. Review of Systems Const All systems reviewed & are unremarkable except as noted in HPI and below Physical exam (Primary Care) Vital Signs: Last Vital Signs Temp 97.1 F 06/18/24 14:53 BP 140/90 H 06/18/24 14:53 Pulse Ox 96 06/18/24 14:53 Oxygen Delivery Method Room Air 06/18/24 14:53 BMI result Body Mass Index 30.4 Tobacco/Smoking Status: Tobacco use Status Tobacco use date assessed 06/18/24 06/18/24 15:00 Patient Tobacco Use Status Current everyday Tobacco 06/18/24 15:00 Tobacco use type Cigarette 06/18/24 15:00 e-Cigarette/Vaping Use Never Used 06/18/24 15:00 Thrive Assessment: Date of Thrive Assessment Date Thrive assessed 05/10/24 06/18/24 15:00 Const General: no acute distress Orientation/consciousness: patient oriented x3 Back/Spine/Pelvis Cervical Spine: pain with cervical ROM, cervical spasm and Cervical spine tenderness Neuro General: patient oriented x3, gait normal and moves all extremities Extrem Right upper extremity: shoulder/upper arm Details: tenderness Location: of the A-C joint, of the proximal humerus and over the deltoid bursa and abnormal ROM Details: pain with active ROM and pain with passive ROM; no swelling, no ecchymosis, no crepitus and no deformity Right lower extremity: hip/thigh Details: tenderness Location: of the hip Location: laterally and posterolaterally and abnormal ROM Details: pain with active ROM during and pain with passive ROM during; no swelling and no crepitus; no edema Psych Speech and movement: Normal speech and movement present Coding Level of Care Code Est Pt Level 4 (46647) Diagnoses Primary osteoarthritis of right shoulder M19.011 Osteoarthritis type: primary Primary osteoarthritis of right hip M16.11 Laterality: right Osteoarthritis type: primary Time Spent (min) 20 Assessment & Plan Assessment & Plan (1) Degenerative joint disease, shoulder, right: Code(s): M19.011 - Primary osteoarthritis, right shoulder Category: Medical Qualifiers: Osteoarthritis type: primary Qualified Code(s): M19.011 - Primary osteoarthritis, right shoulder Plan: Ordered Gabapentin. Ordered Muscle relaxants C/o Meloxicam for pain relif. Ice/Hot Continue with PT Continue f/u with Ortho (2) Degenerative joint disease (DJD) of hip: Code(s): M16.9 - Osteoarthritis of hip, unspecified Category: Medical Qualifiers: Laterality: right Osteoarthritis type: primary Qualified Code(s): M16.11 - Unilateral primary osteoarthritis, right hip Plan: Ordered Gabapentin. Ordered Muscle relaxants C/o Meloxicam for pain relief. Ice/Hot Ordered PT Placed new Referral to Orthopedics. Orders: Orders PT Evaluation and Treatment Today M16.11 - Unilateral primary osteoarthritis, right hip Referrals Orthopedics Referral M16.11 - Unilateral primary osteoarthritis, right hip Medications: New gabapentin 100 mg PO TID 90 caps 0RF M16.11 - Unilateral primary osteoarthritis, right hip, M19.011 - Primary osteoarthritis, right shoulder Refilled meloxicam 15 mg PO DAILY 30 tabs 0RF M25.511 - Pain in right shoulder Discontinued nidgcrgsns-qegvreoezlyoe-enda 50-325-40 mg Discontinued Reason: Patient Completed Course 1 tab PO Q6H PRN 20 tabs 0RF haeadace
[2024-06-18 14:53] VITALS: BP 140/90; TEMP 36.2; O2SAT 96; BMI 30.4
--- OUTSIDE RECORDS SUMMARY | 2024-06-18 14:59 | XMS_ITS | Clinical Summary ---
Author Organization [facility] Address [address] [place] [address] Care Team Providers Care Medical Information Specialist Name Role Phone Unavailable Primary Care Provider [...] Influencers of Health Screening 02/06/2022 COVID-19 Vaccine (1 - 2023-2 5 season) 2023 Pneumococcal Vaccine: 50+ Ye ars (1 of 1 - PCV) 2024 Zoster Vaccines (1 of 2) 2024 Influenza Vaccine (Season Ended) 2024 HIB Vaccines Aged Out No longer [...]
== END 2024-06-18 15:39 | disposition home or self-care (01) ==
LOC: HO.HMCH 14:46
PROVIDERS: PCP Internal Medicine; Visit Provider Nurse Practitioner Family
DX: M19.011 Primary osteoarthritis, right shoulder (principal); M16.11 Unilateral primary osteoarthritis, right hip

== ENCOUNTER → 2024-06-18 14:45 | Outpatient (BNVA) | payer BC, SELFPAY | PROVIDERS: PCP Internal Medicine; Visit Provider Nurse Practitioner Family ==

== ENCOUNTER 2024-06-24 09:06 | Outpatient (AMB) | payer BC, SELFPAY ==
[2024-06-24 09:15] VITALS: BMI 30.3
--- NOTE | 2024-06-24 09:15 | A.OFFVIS_ITS ---
Vital Signs 06/24/24 09:15 Height 5 ft 6 in Weight 188 lb BMI 30.3 Intake Visit Reasons: Newprob- Pain in right shoulder Intake Note: Gio is a 49 year old right hand dominant male who presents today for an evaluation of right shoulder. Patient was seen by his PCP in May for right shoulder pain. He presented to [facility] on 06/14/24 due to arm pain. States on 06/09/24 while he was working he felt a pulling sensation in his shoulder. He did not think much of it and continue to work however he was unable to lift his arm. He presented to [facility] due to his arm pain and stiffness. States his job is physically demanding with 12 hour shifts that requires repetitive tugging and pulling up to 800 lbs. Currently his neck is tense and has migraines. He has constant stabbing pain that is located mostly inside of his shoulder that travels into his neck and down his arm to his hand, as well as numbness and tingling. Limited ROM. He has tried rest, heat, taping and Tylenol, as well as prescribed medication meloxicam and gabapentin. No other tx. Patient has been out of work since 06/15/24. Allergies No Known Allergies Allergy (Verified 06/24/24 09:44) Medication List - Last Reconciled 06/24/24 by Cornelius Ramos PA-C cyclobenzaprine 10 mg PO TID PRN gabapentin 100 mg PO TID meloxicam 15 mg PO DAILY HPI HPI Newprob- Pain in right shoulder: Details: The patient is a 49-year-old male presenting with right shoulder pain . The shoulder pain results from an old injury sustained at work, where the patient performs physically demanding tasks, leading to wear and tear. 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 The patient reports difficulty with raising the right arm due to pain centered in the joint and socket area, which also leads to muscular spasms affecting the shoulder and neck areas. These spasms contribute to headache episodes and neck discomfort. As a compensatory mechanism, the patient has been restricting shoulder movement, which has compounded these muscle issues. [facility] Medical History (Updated 06/24/24 @ 09:41 by Cornelius Ramos PA-C) Degenerative joint disease (DJD) of hip Degenerative joint disease, shoulder, right Right groin pain Obesity Anxiety Right inguinal hernia Surgical History History of right inguinal hernia repair Family History Mother Hypertension Anxiety Social History Housing: House Alcohol intake: current Alcohol intake frequency: does not drink Comment: 3-4 x a month 3-4 beers Patient Tobacco Use Status: Current everyday Tobacco user Tobacco use type: Cigarette Cigarette Packs Per Day: 1 Cigarettes Per Day: 20 Years Smoked: started 2022- pack a day. all smoking 1.5 years now smoking pac 1.5 days. 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 Cognitive needs: No Hearing needs: No Vision needs: Yes Review of Systems Const All systems reviewed & are unremarkable except as noted in HPI and below Physical Exam Vital Signs: BMI result Body Mass Index 30.3 Const General: cooperative and no acute distress Orientation/consciousness: patient oriented x3 Resp Effort & Inspection: normal respiratory effort and able to speak in complete s entences Cardio Peripheral pulses: Peripheral pulses 2+ throughout Neuro General: patient oriented x3 Extrem Other: Right shoulder is normal to inspection he does have significant tenderness over the proximal biceps tendon. Hypersensitivity to palpation over the periscapular region into the neck. Range of motion is significantly limited due to discomfort. Pain with rotator cuff strength testing. Neurovascularly intact. Results Reviewed Results Reviewed: X-rays of the right shoulder from June 14 reviewed by me show mild glenohumeral joint arthritis Assessment & Plan Assessment & Plan (1) Degenerative joint disease, shoulder, right: Code(s): M19.011 - Primary osteoarthritis, right shoulder Category: Medical Qualifiers: Osteoarthritis type: primary Qualified Code(s): M19.011 - Primary osteoarthritis, right shoulder (2) Tendinitis of right rotator cuff: Code(s): M75.81 - Other shoulder lesions, right shoulder Category: Medical Plan I will arrange for an MRI of the right shoulder to delineate the specific structural issues contributing to the patient's symptoms and determine further treatment steps. Physical therapy is recommended to loosen tightened muscles and improve shoulder function. The patient should continue with muscle relaxants and anti-inflammatory medications, adhering to the acute dosing regimen. No lifting, pushing pulling or carrying anything overhead. No lifting more than 5 lb. No repetitive motions. Follow-up will be arranged after MRI findings to plan further intervention. Orders: Orders MR shoulder RT wo con Today M77.8 - Other enthesopathies, not elsewhere classified PT Evaluation and Treatment Today M19.011 - Primary osteoarthritis, right shoulder, M75.81 - Other shoulder lesions, right shoulder Coding Level of Care Code New Pt Level 3 (27613) Complex EM visit Add On G2211 Diagnoses Primary osteoarthritis of right shoulder M19.011 Osteoarthritis type: primary Tendinitis of right rotator cuff M75.81
--- OUTSIDE RECORDS SUMMARY | 2024-06-24 09:59 | XMS_ITS | Clinical Summary ---
Author Organization [facility] Address [address] [place] [address] Care Team Providers Care Housing Installer Name Role Phone Unavailable Primary Care Provider [...]
== END 2024-06-24 09:48 | disposition home or self-care (01) ==
LOC: HO.HOS 09:06
PROVIDERS: PCP Internal Medicine; Visit Provider Physician Assistant
DX: M19.011 Primary osteoarthritis, right shoulder (principal); M75.81 Other shoulder lesions, right shoulder
CPT/HCPCS: 99213

== ENCOUNTER 2024-06-30 18:44 | Outpatient (REF) | payer BC, SELFPAY ==
--- NOTE | ~2024-06-30 | MR_ITS ---
CLINICAL HISTORY: M77.8 - Other enthesopathies, not elsewhere classified Exam: MRI of the right shoulder without intravenous contrast. Comparison: Radiographs June 14, 2024. Findings: No rotator cuff tears are identified. Jfay-pg-ndptalwx tendinopathy of the distal supraspinatus and infraspinatus tendons. There is thickening of the tendons with increased intrasubstance signal intensity. Teres minor and subscapularis tendons are intact. There is degeneration of the superior labrum without discrete labral tear. There is a tear of the posterior labrum. This extends from the 6:00 to 10:00 position. Small paralabral cysts measure less than 3 mm in size. No tear of the anteroinferior labrum. The tendon of the long head of the biceps is appropriately positioned within the bicipital groove. Type 2 acromion. Moderate degenerative change of the AC joint with juxta-articular edema within the soft tissues in the bone marrow. Mild edema within the subacromial/subdeltoid bursa. Impression: 1. Supraspinatus and infraspinatus tendinopathy without rotator cuff tear. 2. Isolated posterior labral tear. 3. AC joint DJD with subacromial/subdeltoid bursitis. This document has been electronically signed by: Ahmet Chavez MD on 07/03/2024 08:49:31
--- OUTSIDE RECORDS SUMMARY | 2024-06-30 18:49 | XMS_ITS | Clinical Summary ---
Author Organization [facility] Address [address] [place] [address] Care Team Providers Care Rug Dyer Name Role Phone Unavailable Primary Care Provider [...]
== END 2024-06-30 18:45 | disposition home or self-care (01) ==
LOC: HO.MRI 18:44
PROVIDERS: PCP Internal Medicine; Visit Provider Physician Assistant
DX: M77.8 Other enthesopathies, not elsewhere classified (principal); M19.011 Primary osteoarthritis, right shoulder; M75.51 Bursitis of right shoulder; S43.401A Unspecified sprain of right shoulder joint, initial encounter; X58.XXXA Exposure to other specified factors, initial encounter; Y93.9 Activity, unspecified; Y92.9 Unspecified place or not applicable; Y99.9 Unspecified external cause status
CPT/HCPCS: 73221

== ENCOUNTER → 2024-06-30 19:07 | Outpatient (BNV) | payer BC, SELFPAY | PROVIDERS: PCP Internal Medicine; Visit Provider Radiology Diagnostic Radiology | DX: M75.31 Calcific tendinitis of right shoulder (principal); M19.011 Primary osteoarthritis, right shoulder | CPT/HCPCS: 73221 ==

== ENCOUNTER 2024-07-02 11:05 | Outpatient (AMB) | payer BC, SELFPAY ==
--- NOTE | 2024-07-02 11:06 | MHC.PC.OV ---
Intake Visit Reasons: Discuss FMLA paperwork Allergies No Known Allergies Allergy (Verified 07/02/24 11:06) Tobacco use date assessed: 06/18/24 Dental Screening Dental Screen Date: 05/10/24 HPI Discuss FMLA paperwork HPI Details left message on [id number] pm touch with the patient and was complaining about the right shoulder pain that started off in May 10 and has been seeing Orthopedics already and MRI pending results. 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 all smoking 1.5 years now smoking pac 1.5 days. 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 Jun Bright, Any Irvin, Sanya Bill and colleagues, with an educational hemant from [employer]. Physical exam (Primary Care) Tobacco/Smoking Status: Tobacco use Status Tobacco use date assessed 06/18/24 07/02/24 11:07 Patient Tobacco Use Status Current everyday Tobacco 07/02/24 11:07 Tobacco use type Cigarette 07/02/24 11:07 e-Cigarette/Vaping Use Never Used 07/02/24 11:07 Thrive Assessment: Date of Thrive Assessment Date Thrive assessed 05/10/24 07/02/24 11:07 Telehealth Telehealth Telehealth Platform: Telephone Location of provider rendering services: practice address Location of patient: address on file Patient Identification confirmed using: Name, : Yes Telehealth method: voice only Patient verbally consented to treatment: Yes Patient verbally consented to billing insurance company: Yes Patient informed of any privacy concerns related to visit: Yes Minutes spent on Phone/Video with Pt.: 15 Coding Level of Care Code Tele Est Pt Level 3 (53112) Diagnoses Tendinitis of right rotator cuff M75.81 Assessment & Plan Assessment & Plan (1) Tendinitis of right rotator cuff: Code(s): M75.81 - Other shoulder lesions, right shoulder Category: Medical Plan: MRI requested and done and results are pending Plan History of Present Illness The patient is a 49-year-old male presenting with right shoulder and groin pain. The patient has a history of impaired glucose tolerance and obesity. The shoulder pain began around May 10, with a noticeable worsening over a weekend, necessitating a visit to the emergency room on June 14. The patient has been diagnosed with degenerative joint disease and tendinitis of the right rotator cuff by an clinical informatics specialist. The symptoms include a pulling sensation, pain, and stiffness in the right shoulder. The patient's occupational duties involve repetitive motions that may contribute to symptom exacerbation. Imaging has confirmed arthritis in the shoulder and revealed diffuse mild to moderate degenerative changes in the cervical spine. An MRI of the shoulder was performed on June 30, pending results. Review of Systems - Musculoskeletal: Reports pain, stiffness, and pulling sensation in the right shoulder. - Musculoskeletal: Reports groin pain. Plan The plan for managing the right shoulder condition currently focuses on pain control using gabapentin and consideration for time off work to facilitate healing. The pending MRI results are crucial for determining further interventions and potential adjustments in management strategy. Physical therapy is considered once imaging results are reviewed. The possibility of referring the patient for further evaluation of the degenerative changes in the cervical spine is to be assessed depending on the symptom correlation. Patient was informed and verbally consented to the use of an ambient scribe for clinic note documentation during this visit. Discussion Notes During the discussion, we addressed the implications of the current condition on the patient?s ability to work and emphasized the importance of leaving duty to prevent worsening the shoulder issue. The diagnostic and therapeutic approach weighs heavily on the pending MRI results; the patient was informed of the same and advised on bracing for potential changes in work duties post-recovery. I also explained that ongoing pain management could facilitate symptom relief until further investigations provide direction on whether physical therapy or more advanced interventions are necessary. The relevance of degenerative changes in the cervical spine was briefly covered, with potential implications on neck mobility and pain levels warranting monitoring. Patient Instructions - Keep taking your prescribed medications for pain relief. - Rest the right shoulder and avoid any activities that may worsen the pain. - Prepare for potential time off from work to allow the shoulder to heal. - Follow up with me for results of the MRI for further treatment planning. - If you notice any worsening of your symptoms, or if new symptoms arise, please contact me immediately.
--- OUTSIDE RECORDS SUMMARY | 2024-07-02 11:54 | XMS_ITS | Clinical Summary ---
Author Organization [facility] Address [address] [place] [address] Care Team Providers Care Aircraft Stress Analyst Name Role Phone Unavailable Primary Care Provider [...]
== END 2024-07-02 16:41 | disposition home or self-care (01) ==
LOC: HO.HMCH 11:05
PROVIDERS: PCP Internal Medicine; Visit Provider Internal Medicine
DX: M75.81 Other shoulder lesions, right shoulder (principal)

== ENCOUNTER → 2024-07-02 11:05 | Outpatient (BNVA) | payer BC, SELFPAY | PROVIDERS: PCP Internal Medicine; Visit Provider Internal Medicine ==

== ENCOUNTER 2024-07-20 09:16 | Emergency (ER) | payer BC, SELFPAY ==
--- NOTE | ~2024-07-20 | XR_ITS ---
EXAMINATION: XR CHEST CLINICAL INFORMATION: sob/cough COMPARISON: September 20, 2022 TECHNIQUE: 2 views of the chest were obtained. FINDINGS: No consolidation, pleural effusion or pneumothorax. Cardiomediastinal silhouette size is normal. Multilevel marginal osteophyte formation and syndesmophyte formation throughout the thoracic spine. XR/XR chest 2V IMPRESSION: No acute airspace disease. Spondylosis, thoracic spine. Electronically signed by: Arjun Abdullahi MD 07/20/2024 09:47 AM EDT
[2024-07-20 09:27] VITALS: BP 142/94; PULSE 112; RESP 18; TEMP 37.1; O2SAT 99; BMI 30.7
[2024-07-20 10:04] LABS: IDNOW Serial# 55D5AD1C; Strep A Nucleic Acid Negative (Negative)
--- OUTSIDE RECORDS SUMMARY | 2024-07-20 10:16 | XMS_ITS | Clinical Summary ---
Author Organization [facility] Address [address] [place] [address] Care Team Providers Care Ekg Monitor Name Role Phone Unavailable Primary Care Provider [...]
--- NOTE | 2024-07-20 10:32 | ED.URI ---
HPI - URI/Sore Throat General Chief Complaint: Upper Respiratory Symptoms Stated Complaint: Cough, pain in rib cage Time Seen by Provider: 07/20/24 09:50 Source: patient, RN notes reviewed and old records reviewed History of Present Illness ED Provider: Autumn Peñaloza PA-C HPI Narrative: 49-year-old male with a past medical history of DJD, anxiety, presenting to the ED complaining of sore throat, cough, SOB, rib discomfort with coughing x 4 days. Admits stepdaughter at home with similar symptoms. Denies fever, chills, recent travel, pedal edema. Admits he is a cigarette smoker. Related Data Previous Rx's ?Medication ?Instructions ?Recorded cyclobenzaprine 10 mg tablet 10 mg PO TID PRN muscle spasm #30 05/10/24 tabs gabapentin 100 mg capsule 100 mg PO TID #90 caps 06/18/24 meloxicam 15 mg tablet 15 mg PO DAILY #30 tabs 06/18/24 prednisone 20 mg tablet 40 mg (2 x 20 mg) PO DAILY 5 days 07/20/24 #10 tabs Allergies Allergy/AdvReac Type Severity Reaction Status Date / Time No Known Allergies Allergy Verified 07/20/24 09:29 Review of Systems Review of Systems: Yes all other systems are reviewed and are negative Constitutional: Constitutional: Reports as per [facility] Past Medical History Attestation statement: The following information was validated with the patient. Source: old records reviewed Medical History Degenerative joint disease (DJD) of hip Degenerative joint disease, shoulder, right Right groin pain Obesity Anxiety Right inguinal hernia Surgical History History of right inguinal hernia repair Family History Family History Mother Hypertension Anxiety Social History Social History Housing: House Alcohol intake: current Alcohol intake frequency: does not drink Comment: 3-4 x a month 3-4 beers Patient Tobacco Use Status: Current everyday Tobacco user Tobacco use type: Cigarette Cigarette Packs Per Day: 1 Cigarettes Per Day: 20 Years Smoked: started 2022- pack a day. all smoking 1.5 years now smoking pac 1.5 days. 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 Cognitive needs: No Hearing needs: No Vision needs: Yes Physical Exam Vital Signs: Vital Signs: Last Vital Signs Temp 98.9 F 07/20/24 11:12 Pulse 110 H 07/20/24 11:12 Resp 18 07/20/24 11:12 BP 126/78 07/20/24 11:12 Pulse Ox 95 07/20/24 11:12 O2 Del Method Room Air 07/20/24 11:12 BMI result Body Mass Index 30.7 Const: General: cooperative, healthy appearing and no acute distress Orientation/consciousness: patient oriented x3 Limitations: no limitations HEENT: Head: Yes normal to inspection and Yes atraumatic Ears: hearing grossly normal bilaterally and external ears normal General nose exam: Normal external nose present Face and sinus: Yes normal facial exam Mouth: no drooling Throat: Yes uvula midline, No peritonsillar mass, Yes posterior oropharynx abnormal ( Erythematous), No uvula laterally displaced and No uvular edema Eyes: General: appearance normal, both eyes and all related structures EOM: EOMs intact bilaterally Neck: Neck: Yes normal visual inspection and Yes no meningeal signs Chest: Other: + bilateral anterior lateral reproducible chest wall tenderness Chest palpation & inspection: normal inspection of the chest, no crepitus and tenderness Resp: Effort & Inspection: normal respiratory effort, no respiratory distress and no stridor Auscultation: clear to auscultation bilaterally, no crackles, no rhonchi and no wheezes Cardio: Rate: regular rate Heart sounds: S1 normal heart sound present and S2 normal heart sound present GI: Inspection: Yes normal to inspection Palpation (GI): Soft to palpation, nontender, no guarding and not rigid Skin: Rashes: no rashes Wounds: no wounds Neuro: General: patient oriented x3, tone normal and no meningeal signs Cranial nerves: Yes CN's II-XII intact bilaterally Gait exam (Neuro): Normal gait present Extrem: General: Yes normal to inspection and Yes no pedal edema Course Course Course Narrative: XR chest 2V IMPRESSION: No acute airspace disease. Spondylosis, thoracic spine. - COVID/flu /RSV and rapid strep negative Results discussed with patient including worrisome signs and symptoms and strict return precautions, and when to return to the emergency department. They verbalized understanding and feel safe for discharge at this time. Medications Administered Discontinued Medications Generic Name Dose Route Start Last Admin Trade Name Freq PRN Reason Stop Dose Admin Albuterol Sulfate 4 puff 07/20/24 10:23 07/20/24 11:05 Albuterol Sulfate 90 Mcg 8 Gm Inhaler INHALE 07/20/24 10:24 4 puff ONCE ONE Administration Medical Decision Making Medical Decision Making MDM Narrative: 49-year-old male with a past medical history of DJD, anxiety, presenting to the ED complaining of sore throat, cough, SOB, rib discomfort with coughing x 4 days. on exam tachycardic, NAD, nontoxic appearing, posterior oropharyngeal erythema noted. Reproducible chest wall tenderness appreciated. No rash. No pedal edema. Concern for viral illness vs costochondritis vs strep pharyngitis. 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 Rule out pneumonia / bronchitis. Lower suspicion for PE /DVT or ACS Plan: CXR, viral testing, rapid strep, albuterol inhaler Please refer to course for remaining clinical decision making, interpretation of labs/imaging results, and discussions with consultants and/or family members. Differential Diagnosis Differential Diagnoses: The differential diagnosis associated with the presentation includes As above Admission/Observation Consideration of admission/observation: Escalation of care including admission/observation considered Lab Data [facility] Lab Attestation statement: I reviewed the patient's lab results. Labs: Lab Results 07/20/24 Range/Units 09:47 Influenza Type A (PCR) NEGATIVE (Negative) Influenza Type B (PCR) NEGATIVE (Negative) RSV RNA Qual (PCR) NEGATIVE (Negative) SARS-CoV-2 RNA (RT-PCR) NEGATIVE (Negative) S. pyogenes GrpA EDWARDO Negative (Negative) Independent Interpretation I performed an independent interpretation of an: Plain X-Ray Radiology Impression Discussion of test interpretation with radiology: I have reviewed the radiologist's reading. External Record Review External record reviewed: Inpatient record, Office record, Outpatient record, Prior outpatient labs, Prior outpatient radiology, Primary care record and Outside ED record Tests considered The following testing was considered but not selected: As above Prescription Management I considered prescription management with: Pain Medication, Antibiotic and Other Chronic Conditions Patient?s care impacted by: Other Social Determinants Patient?s care significantly limited by Social Determinants of Health including: Other Social Determinant of Health Discharge Plan Discharge Clinical Impression: Upper respiratory infection Patient Disposition: Home, Self-Care Instructions: Acute Bronchitis (ED) Additional Instructions: you tested negative for COVID, flu, RSV and strep throat Your x-ray does not show pneumonia Prednisone as a steroid please take as prescribed in addition Use albuterol inhaler as needed for shortness of breath/ wheezing Take Tylenol and ibuprofen Stay hydrated Follow up with your doctor If her symptoms persist or worsen return to the emergency department Prescriptions: New prednisone 20 mg tablet 40 mg PO DAILY 5 Days Qty: 10 0RF No Action gabapentin 100 mg capsule 100 mg PO TID Qty: 90 0RF meloxicam 15 mg tablet 15 mg PO DAILY Qty: 30 0RF cyclobenzaprine 10 mg tablet 10 mg PO TID PRN (Reason: muscle spasm) Qty: 30 0RF Referrals: Po,Tarah Armstrong MD [Primary Care Provider] - 5 days Interventions: ED Discharge Assessment Last Done: 07/20/24 11:12 Discharge Date/Time: 07/20/24 11:12 Print Language: Sinhala
[2024-07-20 10:34] LABS: Influenza A PCR NEGATIVE (Negative); Influenza B PCR NEGATIVE (Negative); Resp Syncy Virus RNA Qual PCR NEGATIVE (Negative); SARS COV2 PCR INHOUSE NEGATIVE (Negative)
--- NOTE | 2024-07-20 11:02 | PC.NURSE ---
Ventolin unavailable in ED pyxis. Contacted pharmacy. Awaiting receipt in order to administer mediation and then discharge home.
--- NOTE | 2024-07-20 11:03 | PC.NURSE ---
Respiratory Therapist came to bedside, reviewing Ventolin use with the patient.
[2024-07-20 11:05] VITALS: PULSE 112; RESP 18; O2SAT 97
[2024-07-20] MEDS: Albuterol Sulfate 90 MCG 8 GM INHALER 4 PUFF INHALE (11:05)
[2024-07-20 11:12] VITALS: BP 126/78; PULSE 110; RESP 18; TEMP 37.2; O2SAT 95
== END 2024-07-20 11:12 | disposition home or self-care (01) ==
PROVIDERS: Emergency Provider Emergency Medicine; PCP Internal Medicine
DX: J06.9 Acute upper respiratory infection, unspecified (principal); R05.9 Cough, unspecified; J02.9 Acute pharyngitis, unspecified; Z03.818 Encounter for observation for suspected exposure to other biological agents ruled out; R06.02 Shortness of breath; F17.210 Nicotine dependence, cigarettes, uncomplicated
CPT/HCPCS: 0241U; 71046; 87651; 94640; 94664; 99283; 99284

== ENCOUNTER → 2024-07-20 09:30 | Outpatient (BNV) | payer BC, SELFPAY | PROVIDERS: PCP Internal Medicine; Visit Provider Radiology Diagnostic Radiology | DX: M47.814 Spondylosis without myelopathy or radiculopathy, thoracic region (principal) | CPT/HCPCS: 71046 ==

== ENCOUNTER 2024-08-17 15:42 | Outpatient (AMB) | payer BC, SELFPAY ==
[2024-08-17 15:44] VITALS: BP 174/122; PULSE 106; TEMP 36.3; O2SAT 98; BMI 30.4
--- NOTE | 2024-08-17 15:44 | A.OFFPC_ITS ---
Vital Signs 08/17/24 15:44 Height 5 ft 6 in Weight 188 lb 4 oz BMI 30.4 BP 174/122 H Blood Pressure Location Lt brachial Position Sitting Pulse 106 H Pulse Source Pulse Oximeter Temp 97.3 F Temp Source Temporal Artery Scan Pulse Oximetry (%) 98 Oxygen Delivery Method Room Air Intake Visit Reasons: R shoulder and groin pain Allergies No Known Allergies Allergy (Verified 08/17/24 15:48) Medication List - Last Reconciled 08/17/24 by Tarah Jimenez MD cyclobenzaprine 10 mg PO TID PRN gabapentin 100 mg PO TID meloxicam 15 mg PO DAILY prednisone 40 mg (2 x 20 mg) PO DAILY 5 days Tobacco use date assessed: 08/17/24 Dental Screening Dental Screen Date: 08/17/24 Did you have a dental visit in the last 12 months?: No Did you have a dental problem in the last 6 months where you did not have access to dental care?: No Was dental information given to patient?: Patient has dentist PENDING SALE TO [facility] Medical History 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 1. Little interest or pleasure in doing things: not at all 2. Feeling down, depressed, or hopeless: nearly every day 3. Trouble falling or staying asleep, or sleeping too much: nearly every day 4. Feeling tired or having little energy: nearly every day 5. Poor appetite or overeating: several days 6. Feeling bad about yourself - or that you are a failure or have let yourself or your family down: not at all 7. Trouble concentrating on things, such as reading the newspaper or watching television: nearly every day 8. Moving or speaking so slowly that other people could have noticed. Or the opposite - being so fidgety or restless that you have been moving around a lot more than usual: nearly every day 9. Thoughts that you would be better off or of hurting yourself in some way: not at all Total score: 16 Depression Screening Interpretation: Positive Depression Screening Done: Yes 13375 - PHQ-9 Billing: Yes Source: Developed by Drs. Jun Bright, Any Irvin, Sanya Bill and colleagues, with an educational hemant from [employer]. Thrive Questionnaire Date Thrive assessed: 08/17/24 I am a: Patient What is your living situation today?: I have a steady place to live Within the past 12 months, did the food you bought not last and you didn't have the money to get more?: Never true Within the past 12 months, did you worry whether your food would run out before you got money to buy more?: Never true Do you have trouble paying for medicines?: No Do you have trouble getting transportation to medical appointments?: No Do you have trouble paying your heating and electricity bill?: No Do you have trouble taking care of your child, family member or friend?: No Do you have trouble with day-to-day activities such as bathing, preparing meals, shopping, managing finances, etc.?: No Are you currently unemployed and looking for a job?: No Are you interested in more education?: No Currently or been in a relationship where the following occur: I choose not to answer THRIVE Score: 0 AUDIT C Alcohol Use Questionnaire (AUDIT-C) 1. How often do you have a drink containing alcohol?: 2-4 times a month 2. How many drinks containing alcohol do you have on a typical day when you are drinking?: 1 or 2 3. How often do you have six or more drinks on one occasion?: Never Total Score: 2 MAVIS-7 AMB Questionnaire MAVIS-7 Date MAVIS - 7 assessed: 08/17/24 Feeling nervous, anxious, or on edge: 3 = Nearly every day Not being able to stop or control worryin = Nearly every day Worrying too much about different things: 3 = Nearly every day Trouble relaxin = Nearly every day Being so restless that it is hard to sit still: 3 = Nearly every day Becoming easily annoyed or irritable: 3 = Nearly every day Feeling afraid as if something awful might happen: 0 = Not at all Total MAVIS-7 score (0-4 normal; 5-9 mild; 10-14 moderate; 15-21 severe): 18 Source: Developed by Drs. Jun Bright, Any Irvin, Sanya Bill and colleagues, with an educational hmeant from [employer]. MAVIS-7 Assessment Billing MAVIS-7 Assessment Tool: MAVIS-7 Assessment 17211 Physical exam (Primary Care) Vital Signs: Last Vital Signs Temp 97.3 F 08/17/24 15:44 Pulse 106 H 08/17/24 15:44 BP 174/122 H 08/17/24 15:44 Pulse Ox 98 08/17/24 15:44 Oxygen Delivery Method Room Air 08/17/24 15:44 BMI result Body Mass Index 30.4 Tobacco/Smoking Status: Tobacco use Status Tobacco use date assessed 08/17/24 08/17/24 15:55 Patient Tobacco Use Status Current everyday Tobacco 08/17/24 15:55 Tobacco use type Cigarette 08/17/24 15:55 e-Cigarette/Vaping Use Never Used 08/17/24 15:55 PHQ-9: PHQ-9 Score PHQ-9: Total score 16 08/17/24 16:14 Depression Screening Interpretation: Positive Thrive Assessment: Date of Thrive Assessment Date Thrive assessed 08/17/24 08/17/24 15:55 Currently or been in a relationship where the following occur: I choose not to answer Const General: alert; No acute distress Eyes Conjunctivae: conjunctivae normal Resp Auscultation: clear to auscultation bilaterally Cardio Rate: regular rate Rhythm: regular rhythm GI Inspection: Yes normal to inspection Extrem General: Yes normal to inspection and No edema Coding Level of Care Code Est Pt Level 4 (66258) Complex EM visit Add On G2211 Diagnoses Tendinitis of right rotator cuff M75.81 Obesity (BMI 30.0-34.9) E66.9 Generalized anxiety disorder F41.1 Tobacco abuse Z72.0 Additional Codes MAVIS-7 Assessment Billing - MAVIS-7 Assessment Tool: MAVIS-7 Assessment 06516 ([id number]) PHQ-9 - 56089 - PHQ-9 Billing: Yes ([id number]) Assessment & Plan Assessment & Plan (1) Tendinitis of right rotator cuff: Code(s): M75.81 - Other shoulder lesions, right shoulder Category: Medical Plan: on Physical therapy and has an upcoming schedule with orthopedics (2) Obesity (BMI 30.0-34.9): Code(s): E66.9 - Obesity, unspecified Category: Medical (3) Generalized anxiety disorder: Code(s): F41.1 - Generalized anxiety disorder Category: Medical (4) Tobacco abuse: Code(s): Z72.0 - Tobacco use Category: Medical Plan History of Present Illness The patient is a 49-year-old male presenting with follow-up for chronic conditions management and recent acute illness. His medical history is notable for obesity, impaired glucose tolerance, and degenerative joint disorders involving the hip and shoulder, as well as right rotator cuff tendinitis. In June 2024, he was advised to pursue physical therapy to manage musculoskeletal concerns. Recently, the patient experienced an upper respiratory tract infection, which was treated in the ER on July 21, resulting in a course of prednisone for acute bronchitis. Dosage commenced with one tablet at night for three days, followed by a twice-daily regimen. Additionally, the patient shared that he ceased smoking, monitored weight changes, and noted little cosmetic and age-related changes. The chronology of events spans long-term management and adaptations, specifically emphasizing lifestyle adjustments and acute symptom management. Health Maintenance - Smoking cessation discussed and implemented - Weight management through lifestyle change mentioned - Chronic disease management follow-up discussed Social History - Ceased smoking habit - Recalls previous weight of 195 pounds Review of Systems - Respiratory: Reports upper respiratory tract infection, now resolved Physical Exam Results Plan The management will continue adhering to strategies for obesity, glucose impairment, and joint disease control. Physical therapy remains a cornerstone of care for musculoskeletal complaints. The patient recovered from acute bronchitis with a scheduled prednisone regimen and stress on adherence to therapy. Smoking cessation and efforts towards healthy weight were reinforced, alongside continued monitoring and reassessment at follow-ups. Patient was informed and verbally consented to the use of an ambient scribe for clinic note documentation during this visit. Discussion Notes During the consultation, I reviewed the patient's health conditions and recent acute illness. We discussed the lifestyle interventions that include smoking cessation and weight management, as well as treatment modalities aimed at his chronic joint issues and glucose metabolism concerns. The patient had been prescribed prednisone for acute bronchitis, where potential outcomes and the importance of completing the regimen were highlighted. Additionally, I advised on follow-up care to ensure ongoing assessment of chronic conditions and efficacy of current management strategies. Patient Instructions - Continue prescribed prednisone regimen as directed - Maintain physical therapy sessions for joint health - Focus on weight management through lifestyle changes - Follow up with healthcare provider as scheduled - Monitor and report any significant changes in health symptoms - Stay away from smoking and engage in healthy lifestyle choices Medications: New bupropion HCl SR (Wellbutrin SR) 150 mg PO BID 60 tabs 1RF F41.1 - Generalized anxiety disorder lorazepam LIMITED TO 2 WEEKS ONLY 0.5 mg PO BEDTIME PRN 14 tabs 0RF anxiety F41.1 - Generalized anxiety disorder lorazepam LIMITED TO 2 WEEKS ONLY 0.5 mg PO BEDTIME PRN 10 tabs 0RF anxiety F41.1 - Generalized anxiety disorder Discontinued prednisone Discontinued Reason: Doctor's Order 40 mg (2 x 20 mg) PO DAILY 5 days 10 tabs 0RF cyclobenzaprine Discontinued Reason: Patient Completed Course 10 mg PO TID PRN 30 tabs 0RF muscle spasm R10.31 - Right lower quadrant pain
--- OUTSIDE RECORDS SUMMARY | 2024-08-17 18:43 | XMS_ITS | Clinical Summary ---
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
== END 2024-08-17 16:29 | disposition home or self-care (01) ==
LOC: HO.HMCH 15:43
PROVIDERS: PCP Internal Medicine; Visit Provider Internal Medicine
DX: M75.81 Other shoulder lesions, right shoulder (principal); E66.9 Obesity, unspecified; Z68.30 Body mass index [BMI] 30.0-30.9, adult; F41.1 Generalized anxiety disorder; Z72.0 Tobacco use

== ENCOUNTER → 2024-08-17 15:42 | Outpatient (BNVA) | payer BC, SELFPAY | PROVIDERS: PCP Internal Medicine; Visit Provider Internal Medicine | DX: M75.81 Other shoulder lesions, right shoulder (principal); E66.9 Obesity, unspecified; Z68.30 Body mass index [BMI] 30.0-30.9, adult; F41.1 Generalized anxiety disorder; Z72.0 Tobacco use; Z13.31 Encounter for screening for depression; Z13.30 Encounter for screening examination for mental health and behavioral disorders, unspecified | CPT/HCPCS: 96127 ==

== ENCOUNTER 2024-08-27 13:53 | Outpatient (AMB) | payer BC, SELFPAY ==
--- NOTE | 2024-08-27 13:55 | MHC.OFFVIS ---
Vital Signs 08/27/24 13:56 Height 5 ft 6 in Weight 188 lb BMI 30.3 Intake Visit Reasons: OV- R shoulder MRI review Intake Note: Gio is a 49 year old right hand dominant male who presents today for an MRI review of right shoulder. At his last visit he was recommended to attend PT, and follow up after his MRI. Patient reports physical therapy is helpful at times with certain exercises. Allergies No Known Allergies Allergy (Verified 08/27/24 13:57) HPI HPI OV- R shoulder MRI review: Details: 49-year-old gentleman returns to the office today for a follow-up right shoulder pain status post MRI. He has been working with physical therapy 1 to 2 times a week and has some relief however he continues to have discomfort with reaching pushing pulling activities. 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 Cognitive needs: No Hearing needs: No Vision needs: Yes Review of Systems Const All systems reviewed & are unremarkable except as noted in HPI and below Physical Exam Vital Signs: BMI result Body Mass Index 30.3 Const General: cooperative and no acute distress Orientation/consciousness: patient oriented x3 Resp Effort & Inspection: normal respiratory effort and able to speak in complete sentences Cardio Peripheral pulses: Peripheral pulses 2+ throughout Neuro General: patient oriented x3 Extrem Other: Right shoulder is normal to inspection he does have significant tenderness over the proximal biceps tendon. Neurovascularly intact. Office Procedures AMB Joint Injection/Aspiration Joint Injection/Aspiration Primary Site: right shoulder Prep: site was prepped using aseptic technique, ethochloride spray was applied and injection warnings given Injected: 80 mg of, DepoMedrol, with 8 mL of, 1% plain lidocaine and in the subcromial space Approach Used: posterolateral Procedure: The patient tolerated the procedure well and there was some relief with the local anesthesia Coding 31984 - Glenohumeral/Tronchanteric Bursa/Intraarticular Procedure code (CPT) selection complete Results Reviewed Results Reviewed: Impression: 1. Supraspinatus and infraspinatus tendinopathy without rotator cuff tear. 2. Isolated posterior labral tear. 3. AC joint DJD with subacromial/subdeltoid bursitis. Assessment & Plan Assessment & Plan (1) Tendinitis of right rotator cuff: Code(s): M75.81 - Other shoulder lesions, right shoulder Category: Medical (2) Degenerative joint disease, shoulder, right: Code(s): M19.011 - Primary osteoarthritis, right shoulder Category: Medical Qualifiers: Osteoarthritis type: primary Qualified Code(s): M19.011 - Primary osteoarthritis, right shoulder Plan MRI was reviewed with the patient explaining the cuff does appear to be intact however he does have some inflammation around the AC joint with arthritic changes along with some pathology to the labrum. His labral pathology may be what is producing pain along the proximal biceps tendon. I did explain to the patient working with physical therapy to help strengthen the rotator cuff and periscapular region we will help to condition the shoulder girdle and ease his symptoms. I did discuss the role of steroid injection which she did consent to today. Right shoulder was injected with steroid which she tolerated well. He should avoid activities overhead and pushing pulling carrying greater than 5 lb, limiting work hours to 8 hours a day. He will use anti-inflammatories to help with discomfort and continue with physical therapy. I would like to see him back in 8 weeks for re-evaluation, sooner if needed. Coding Level of Care Code Est Pt Level 3 (20170) Complex EM visit Add On G2211 Diagnoses Tendinitis of right rotator cuff M75.81 Primary osteoarthritis of right shoulder M19.011 Osteoarthritis type: primary CPT Codes Coding - Joint 7: 13954 - Glenohumeral/Tronchanteric Bursa/Intraarticular ([id number])
[2024-08-27 13:56] VITALS: BMI 30.3
--- OUTSIDE RECORDS SUMMARY | 2024-08-27 13:56 | XMS_ITS | Clinical Summary ---
Author Organization [facility] Address [address] [place] [address] Care Team Providers Care [place] Guide Name Role Phone Unavailable Primary Care Provider [...]
== END 2024-08-27 14:33 | disposition home or self-care (01) ==
LOC: HO.HOS 13:54
PROVIDERS: PCP Internal Medicine; Visit Provider Physician Assistant
DX: M75.81 Other shoulder lesions, right shoulder (principal); M19.011 Primary osteoarthritis, right shoulder
CPT/HCPCS: 20610; 99213

== ENCOUNTER → 2024-08-27 13:53 | Outpatient (BNVA) | payer BC, SELFPAY | PROVIDERS: PCP Internal Medicine; Visit Provider Physician Assistant | DX: M19.011 Primary osteoarthritis, right shoulder (principal); M75.81 Other shoulder lesions, right shoulder | CPT/HCPCS: 20610; J1010; J2003 ==

== ENCOUNTER 2024-09-03 15:26 | Emergency (ER) | payer BC, SELFPAY ==
--- NOTE | ~2024-09-03 | CT_ITS ---
CLINICAL HISTORY: abscess, swelling neck pain CT soft tissue neck with contrast Comparison: None provided Findings: Tonsils, adenoids and epiglottis are within normal limits. There is no prevertebral soft tissue swelling or fluid. Bilateral parotid and submandibular glands unremarkable. No significant adenopathy in the neck by size criteria. Airway midline without deviation or displacement. No foreign bodies are demonstrated. Maxillary sinus retention cysts noted. Remaining sinuses and mastoids clear. Visualized upper lungs are clear. No acute bony abnormalities demonstrated. Impression: No significant abnormalities. This document has been electronically signed by: Los Guillaume MD on 09/03/2024 20:12:16
[2024-09-03 15:29] VITALS: BP 163/110; PULSE 84; RESP 16; TEMP 36.6; O2SAT 96; BMI 31.0
--- NOTE | 2024-09-03 15:30 | ED.SKABFB ---
HPI - Skin/Abscess/Foreign Bdy General Stated complaint: cyst on right side of neck possible insect bite Related Data Previous Rx's ?Medication ?Instructions ?Recorded gabapentin 100 mg capsule 100 mg PO TID #90 caps 06/18/24 meloxicam 15 mg tablet 15 mg PO DAILY #30 tabs 06/18/24 bupropion HCl 150 mg tablet,12 hr 150 mg PO BID #60 tabs 08/17/24 sustained-release (Wellbutrin SR) lorazepam 0.5 mg tablet 0.5 mg PO BEDTIME PRN anxiety #10 08/17/24 tabs Allergies Allergy/AdvReac Type Severity Reaction Status Date / Time No Known Allergies Allergy Verified 09/03/24 15:32 [facility] [place] Past Medical History Medical History 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 Full HPI, ROS, assessment and treatment plan per primary provider in the Main ED. Hx: 49 yo M here for eval insect bite to right side of his neck. noticed bite ugarte on waking 3 days ago. the area has now been increasing in size, draining, causing a tight pain extending into shoulder. reports difficulty moving the neck. [place] to this however does not recall being bit by anything. denies recent tick bites. Plan: screening labs Discharge Plan Discharge Prescriptions: No Action gabapentin 100 mg capsule 100 mg PO TID Qty: 90 0RF meloxicam 15 mg tablet 15 mg PO DAILY Qty: 30 0RF lorazepam 0.5 mg tablet 0.5 mg PO BEDTIME PRN (Reason: anxiety) Qty: 10 0RF Rx Instructions: LIMITED TO 2 WEEKS ONLY bupropion HCl [Wellbutrin SR] 150 mg tablet sustained-release 12 hr 150 mg PO BID Qty: 60 1RF Print Language: Romansh
[2024-09-03 15:50] LABS: MANUAL DIFF FLAG NO
[2024-09-03 16:01] LABS: Basophils Percent Auto 0.3 % (0-2); Eosinophils Absolute Auto 0.2 X10*3/uL (0.0-0.4); Eosinophils Percent Auto 2.7 % (0-4); Hematocrit 40.6 % (42.0-52.0); Hemoglobin 13.9 g/dl (14.0-18.0); Imm Gran Abs Auto 0.04 X10*3/uL (0.00-0.03); Imm Gran Pct Auto 0.4 % (0.0-0.4); Lymphocytes Absolute Auto 2.3 X10*3/uL (1.2-4.9); Lymphocytes Percent Auto 25.1 % (20-40); Mean Corpuscular HGB Conc 34.2 g/dl (31.0-36.0); Mean Corpuscular Hemoglobin 31.6 pg (27.0-33.0); Mean Corpuscular Volume 92.3 fL (80.0-98.0); Mean Platelet Volume 9.1 fL (9.4-12.4); Monocytes Absolute Auto 1.1 X10*3/uL (0.1-1.2); Monocytes Percent Auto 12.6 % (2-11); Neutrophils Absolute Auto 5.3 x10*3/uL (2.0-8.3); Neutrophils Percent Auto 58.9 % (45-73); Platelet Count 335 X10*3/uL (160-400); White Blood Count 9.1 X10*3/uL (4.8-10.8)
[2024-09-03 16:04] LABS: Alanine Aminotransferase 34 U/L (0-40); Albumin Level 4.3 g/dL (3.5-5.0); Alkaline Phosphatase 67 U/L (39-117); Anion Gap 12 (12-20); Aspartate Amino Transferase 22 U/L (5-37); Bilirubin Total 0.3 mg/dL (0.0-1.0); Blood Urea Nitrogen 17 mg/dL (9-16); Carbon Dioxide 28 mmol/L (22-29); Chloride 106 mmol/L (96-108); Creatinine Clr Calc Pharmacy 85.4; Estimated Glomerular Filt Rate > 60; Glucose Random 109 mg/dL (60-115); Potassium 4.4 mmol/L (3.3-5.1); Sodium 142 mmol/L (135-145)
--- NOTE | 2024-09-03 16:51 | ED.SKABFB ---
HPI - Skin/Abscess/Foreign Bdy General Chief complaint: Skin/Abscess/Foreign Body Stated complaint: cyst on right side of neck possible insect bite Time Seen by Provider: 09/03/24 16:51 Source: patient Mode of arrival: ambulatory Limitations: no limitations History of Present Illness ED Provider: James Boykin PA-C HPI narrative: 49-year-old male with medical history of anxiety, degenerative disc disease presents to the ED due to abscess of right posterior neck. Patient states he went to the beach 2 days ago, and woke up the next morning with abscess on the back of his neck. He states over the last 2 days abscess has grown, with drainage yesterday and chills last night. Today he woke up with right-sided neck pain and swelling that travels up behind the mastoid. Denies chest pain, shortness of breath, nausea, vomiting, headache, visual changes, otalgia, tinnitus. MD complaint: abscess/boil Onset (ago): day(s) (2) Location: neck (Right-sided posterior) Severity: moderate Related Data Previous Rx's ?Medication ?Instructions ?Recorded gabapentin 100 mg capsule 100 mg PO TID #90 caps 06/18/24 meloxicam 15 mg tablet 15 mg PO DAILY #30 tabs 06/18/24 bupropion HCl 150 mg tablet,12 hr 150 mg PO BID #60 tabs 08/17/24 sustained-release (Wellbutrin SR) lorazepam 0.5 mg tablet 0.5 mg PO BEDTIME PRN anxiety #10 08/17/24 tabs cephalexin 500 mg capsule 500 mg PO BID 7 days #14 caps 09/03/24 oxycodone 5 mg capsule 5 mg PO BID PRN pain 3 days #6 caps 09/03/24 Allergies Allergy/AdvReac Type Severity Reaction Status Date / Time No Known Allergies Allergy Verified 09/03/24 15:32 Review of Systems Review of Systems: CONST: Negative for fever, body aches and chills. POS chills HENT: Negative for neck pain/stiffness, headache, congestion, sore throat, swelling. EYES: Negative for discharge/pain or vision changes. RESP: Negative for cough/hemoptysis and shortness of breath. CV: Negative chest pain, difficulty breathing, palpitations. ABD: Negative pain, nausea, vomiting. : Negative increase frequency, dysuria, blood in urine or stool. MUSC: Negative for muscle aches, edema. SKIN: Negative rash, lesions/sores. POS abscess on posterior neck NEURO: Negative headache, dizziness, weakness. [facility] Past Medical History Attestation statement: The following information was validated with the patient. Source: old records reviewed and nursing notes reviewed Medical History Degenerative joint disease (DJD) of hip Degenerative joint disease, shoulder, right Right groin pain Obesity Anxiety Right inguinal hernia Surgical History History of right inguinal hernia repair Family History Family History Mother Hypertension Anxiety Social History Social History Housing: House Alcohol intake: current Alcohol intake frequency: a few times a month Comment: 3-4 x a month 3-4 beers Patient Tobacco Use Status: Current everyday Tobacco user Tobacco use type: Cigarette Cigarette Packs Per Day: 2 Cigarettes Per Day: 40 Years Smoked: started 2022- pack a day. 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 HEENT: ?NC, AT. MMM. EOMI, clear conjunctiva, oropharynx clear. NECK: ?R sided anterior lymphadenopathy, mild edema of R side of face. Indurated abscess of R posterior neck, not actively draining, mild surrounding erythema, sensation intact, Reduced ROM with lateral bending due to pain. HEART:? Normal rate and regular rhythm, normal S1/S1, no m/r/g LUNGS:? CTAB, moving air well. No crackles or wheezes are heard. ABDOMEN: ?Soft, nontender, nondistended with good bowel sounds heard. BACK: No CVAT, no obvious deformity. EXTREMITIES: ?Without cyanosis, clubbing or edema. NEUROLOGICAL: ?Grossly nonfocal. Alert and oriented, moving all 4 extremities. Observed to ambulate with normal gait. Skin: ?Warm and dry without any rash. Medications Administered Discontinued Medications Generic Name Dose Route Start Last Admin Trade Name Freq PRN Reason Stop Dose Admin Iohexol 60 ml 09/03/24 19:47 09/03/24 19:47 Iohexol 350 Mg/Ml 100 Ml Infus..Btl IV 09/03/24 19:48 60 ml ONCE ONE Administration Morphine Sulfate 4 mg 09/03/24 17:35 09/03/24 18:38 Morphine Sulfate 4 Mg/Ml Cartridge IVPUSH 09/03/24 17:36 4 mg ONCE ONE Administration Protocol Oxycodone HCl 10 mg 09/03/24 22:02 09/03/24 22:13 Oxycodone Hcl Er 10 Mg Tab.Er.12h PO 09/03/24 22:03 10 mg ONCE ONE Administration Medical Decision Making Medical Decision Making [facility] Narrative: 49-year-old male with medical history of anxiety, degenerative disc disease presents to the ED due to abscess of right posterior neck. Patient states he went to the beach 2 days ago, and woke up the next morning with abscess on the back of his neck. He states over the last 2 days abscess has grown, with drainage yesterday and chills last night. Today he woke up with right-sided neck pain and swelling that travels up behind the mastoid. Denies chest pain, shortness of breath, nausea, vomiting, headache, visual changes, otalgia, tinnitus. On physical exam there is an indurated non draining abscess of the posterior right-sided neck. Patient has anterior lymphadenopathy of the right side of the neck, palpable cervical chain lymph nodes of the right side, without erythema or overlying skin changes of the neck or face. No submental or sublingual swelling. Patient tolerating secretions, no shortness of breath, no difficulty breathing. Patient very uncomfortable and in pain medicated with 4 mg morphine for pain relief with good effect. Labs without leukocytosis, CRP elevated at 0.74. CT soft tissue neck with contrast does not reveal any deep lying soft tissue infection, or collectable fluid for drainage. Patient is still uncomfortable upon discharge who will medicate with 10 mg oxycodone, patient has a ride home. We will discharge patient with 3 days of oxycodone for pain relief, and a 7 day course of Keflex to treat cellulitis. Differential Diagnosis Differential Diagnoses: The differential diagnosis associated with the presentation includes Abscess Insect bite Cellulitis Ermias's angina Admission/Observation Consideration of admission/observation: Escalation of care including admission/observation considered Lab Data MDM Lab Attestation statement: I reviewed the patient's lab results. 09/03/24 15:47 09/03/24 15:47 Labs: Lab Results 09/03/24 Range/Units 15:47 WBC 9.1 (4.8-10.8) X10*3/uL RBC 4.40 L (4.60-5.80) X10*6/uL Hgb 13.9 L (14.0-18.0) g/dl Hct 40.6 L (42.0-52.0) % MCV 92.3 (80.0-98.0) fL MCH 31.6 (27.0-33.0) pg MCHC 34.2 (31.0-36.0) g/dl RDW 14.0 (11.0-16.0) % Plt Count 335 (160-400) X10*3/uL MPV 9.1 L (9.4-12.4) fL Immature Gran % (Auto) 0.4 (0.0-0.4) % Neut % (Auto) 58.9 (45-73) % Lymph % (Auto) 25.1 (20-40) % Montgomery % (Auto) 12.6 H (2-11) % Eos % (Auto) 2.7 (0-4) % Baso % (Auto) 0.3 (0-2) % Lymph # (Auto) 2.3 (1.2-4.9) X10*3/uL Montgomery # (Auto) 1.1 (0.1-1.2) X10*3/uL Eos # (Auto) 0.2 (0.0-0.4) X10*3/uL Baso # (Auto) 0.0 (0.0-0.2) X10*3/uL Abs Immat Gran (auto) 0.04 H (0.00-0.03) X10*3/uL Absolute Neuts (auto) 5.3 (2.0-8.3) x10*3/uL Absolute Nucleated RBC 0.000 (0.0-0.012) X10*3/uL Nucleated RBC % (auto) 0.0 (0.0-0.2) /100WBC ESR 7 (0-15) MM/HR Sodium 142 (135-145) mmol/L Potassium 4.4 (3.3-5.1) mmol/L Chloride 106 (96-108) mmol/L Carbon Dioxide 28 (22-29) mmol/L Anion Gap 12 (12-20) BUN 17 H (9-16) mg/dL Creatinine 1.07 (0.5-1.4) mg/dL Estim Creat Clear Calc 85.4 Estimated GFR > 60 Random Glucose 109 (60-115) mg/dL Calcium 9.0 (8.4-10.2) mg/dL Total Bilirubin 0.3 (0.0-1.0) mg/dL AST 22 (5-37) U/L ALT 34 (0-40) U/L Alkaline Phosphatase 67 (39-117) U/L C-Reactive Protein 0.74 H (< or = 0.50) mg/dL Total Protein 7.0 (6.5-8.0) g/dL Albumin 4.3 (3.5-5.0) g/dL Independent Interpretation I performed an independent interpretation of an: CT Scan Radiology Impression Discussion of test interpretation with radiology: I have reviewed the radiologist's reading. Radiologist Impression: Findings: Tonsils, adenoids and epiglottis are within normal limits. There is no prevertebral soft tissue swelling or fluid. Bilateral parotid and submandibular glands unremarkable. No significant adenopathy in the neck by size criteria. Airway midline without deviation or displacement. No foreign bodies are demonstrated. Maxillary sinus retention cysts noted. Remaining sinuses and mastoids clear. Visualized upper lungs are clear. No acute bony abnormalities demonstrated. Impression: No significant abnormalities. This document has been electronically signed by: Los Guillaume MD on 09/03/2024 20:12:16 Dictated By: Los Guillaume MD Signed By: <Electronically signed by Los Guillaume MD in OV> 09/03/242012 External Record Review External record reviewed: Inpatient record, Office record and Outpatient record Discharge Plan Discharge Clinical Impression: Cellulitis Patient Disposition: Home, Self-Care Instructions: Cellulitis (ED), Warm Compress or Soak (ED) Additional Instructions: You were evaluated in the ED today due to an abscess on the back of your neck. Your labs did not reveal white count, but did reveal that you have some inflammation. The CT of your soft tissue neck visualized the soft tissues of your neck up into her face, did not reveal any deep tissue infection or collectable fluid for drainage. You were medicated with 4 mg of IV morphine due to your pain. You can manage your pain by taking Tylenol and Motrin every 6 hours You will be prescribed a 7 day course of an antibiotic called Keflex for the infection on your neck. You will be prescribed 3 days of oxycodone which is an opioid pain medication to be used for severe pain. This medication comes at a risk of dependence, you should not operate heavy machinery or drive vehicles while on this medication. Only take this medication when Tylenol and Motrin will not relieve the pain. Additionally you can do warm soaks and compresses of the lesion for comfort. Prescriptions: New oxycodone 5 mg capsule 5 mg PO BID PRN (Reason: pain) 3 Days Qty: 6 0RF Rx Instructions: Partial Fill upon patient request. cephalexin 500 mg capsule 500 mg PO BID 7 Days Qty: 14 0RF No Action gabapentin 100 mg capsule 100 mg PO TID Qty: 90 0RF meloxicam 15 mg tablet 15 mg PO DAILY Qty: 30 0RF lorazepam 0.5 mg tablet 0.5 mg PO BEDTIME PRN (Reason: anxiety) Qty: 10 0RF Rx Instructions: LIMITED TO 2 WEEKS ONLY bupropion HCl [Wellbutrin SR] 150 mg tablet sustained-release 12 hr 150 mg PO BID Qty: 60 1RF Print Language: Sinhala
--- OUTSIDE RECORDS SUMMARY | 2024-09-03 16:55 | XMS_ITS | Clinical Summary ---
Author Organization [facility] Address [address] [place] [address] Care Team Providers Care Back Up Worker Name Role Phone Unavailable Primary Care Provider [...]
[2024-09-03 17:59] LABS: C Reactive Protein 0.74 mg/dL (< or = 0.50)
[2024-09-03 18:37] LABS: Erythrocyte Sedimentation Rate 7 MM/HR (0-15)
[2024-09-03] MEDS: Morphine Sulfate 4 MG/ML CARTRIDGE IVPUSH (18:38)
[2024-09-03 18:41] VITALS: BP 156/98; PULSE 85; RESP 16; TEMP 36.6; O2SAT 96
[2024-09-03] MEDS: iohexoL 350 MG/ML 100 ML INFUS..BTL 60 ML IV (19:47)
[2024-09-03 20:32] VITALS: BP 158/109; PULSE 65; RESP 16; O2SAT 98
[2024-09-03 22:00] VITALS: BP 174/112; PULSE 76; RESP 16; TEMP 36.9; O2SAT 98
[2024-09-03] MEDS: oxyCODONE HCl ER 10 MG TAB.ER.12H PO (22:13)
[2024-09-03 22:21] VITALS: BP 174/112; PULSE 76; RESP 16; TEMP 36.9; O2SAT 98
== END 2024-09-03 22:22 | disposition home or self-care (01) ==
PROVIDERS: Physician Assistant Medical; Emergency Provider Emergency Medicine Emergency Medical Services; PCP Internal Medicine
DX: L03.221 Cellulitis of neck (principal); F17.210 Nicotine dependence, cigarettes, uncomplicated
CPT/HCPCS: 36415; 70491; 80053; 85025; 85652; 86140; 96374; 99284; J2270; Q9967

== ENCOUNTER → 2024-09-03 17:35 | Outpatient (BNV) | payer BC, SELFPAY | PROVIDERS: Emergency Provider Emergency Medicine Emergency Medical Services; PCP Internal Medicine; Visit Provider Radiology Diagnostic Radiology | DX: M54.2 Cervicalgia (principal) | CPT/HCPCS: 70491 ==

== ENCOUNTER 2024-10-14 11:00 | Outpatient (RCR) | payer BC, SELFPAY | END 2024-11-17 08:38 | disposition home or self-care (01) | LOC: HO.PT 11:00 | PROVIDERS: PCP Internal Medicine; Visit Provider Physician Assistant | DX: M25.511 Pain in right shoulder (principal); R10.31 Right lower quadrant pain; M19.011 Primary osteoarthritis, right shoulder; M75.81 Other shoulder lesions, right shoulder | CPT/HCPCS: 97110; 97161; 97530; 97535 ==

== ENCOUNTER 2024-10-22 14:39 | Outpatient (AMB) | payer BC, SELFPAY ==
--- OUTSIDE RECORDS SUMMARY | 2024-10-22 14:42 | XMS_ITS | Clinical Summary ---
Author Organization [facility] ity Address [address] [place] [address] Care Team Providers Care Relay Tester Name Role Phone Unavailable Primary Care Provider [...] of 3 - 19+ 3-dose series) 1993 COVID-19 Vaccine ( - 2023-2 5 season) 2023 Depression Screening 03/10/2024 Pneumococcal Vaccine: 50+ Ye ars (1 of 1 - PCV) 2024 Zoster Vaccines (1 of 2) 2024 Influenza Vaccine (#1) 2024 HIB Vaccines Aged Out No longer [...]
--- NOTE | 2024-10-22 14:48 | A.OFFVIS_ITS ---
Vital Signs 10/22/24 14:57 Height 5 ft 6 in Weight 189 lb BMI 30.5 Intake Visit Reasons: OV-Rt shldr tendonitis s/p inj/therapy Intake Note: iGo is a 49 year old right hand dominant male who presents today for a follow up of right shoulder tendonitis. At patient last visit an injection was given, he was recommended to continue attending physical therapy and follow up in 8 weeks. Patient reports physical therapy is going well, however he continues to be limited in his ROM. He mentions that he continues to have clicking in shoulder. He reports that he is unsure if injection helped. Current work restrictions- avoid activities overhead and pushing, pulling, or carrying greater than 5 lb, as well as limiting work hours to 8 hours a day. Allergies No Known Allergies Allergy (Verified 10/22/24 15:12) Medication List - Last Reconciled 10/22/24 by Cornelius Ramos PA-C bupropion HCl SR (Wellbutrin SR) 150 mg PO BID celecoxib (Celebrex) 200 mg PO BID 30 days lorazepam 0.5 mg PO BEDTIME PRN HPI HPI OV-Rt shldr tendonitis s/p inj/therapy: Details: 49-year-old gentleman returns to the office today for a follow-up right shoulder pain status post work-related injury on 06/09/2024. He has been attending physical therapy and also had an injection at his last visit. He states the injection was helpful for a while but continues to have limitations with reaching overhead or behind his back. With physical therapy they are using 5 lb with their exercises and getting him to activate scapular stabilization along with cuff work. [facility] Medical History Degenerative joint disease (DJD) of hip Degenerative joint disease, shoulder, right Right groin pain Obesity Anxiety Right inguinal hernia Surgical History History of right inguinal hernia repair Family History Mother Hypertension Anxiety Social History Housing: House Alcohol intake: current Alcohol intake frequency: a few times a month Comment: 3-4 x a month 3-4 beers Patient Tobacco Use Status: Current everyday Tobacco user Tobacco use type: Cigarette Cigarette Packs Per Day: 2 Cigarettes Per Day: 40 Years Smoked: started 2022- pack a day. 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 He has discomfort with belly press against resistance and limited motion with internal rotation. Pain with lift-off. Assessment & Plan Assessment & Plan (1) Tendinitis of right rotator cuff: Code(s): M75.81 - Other shoulder lesions, right shoulder Category: Medical Plan: He will continue working with physical therapy to improve his motion and strength. He will remain out of work until I see him back in 8 weeks for re- evaluation. At that time we will determine if there is improvement getting him back to work otherwise if he has continued symptoms that are still limiting his ability to return to work and perform daily activities we may need to discuss exploratory arthroscopy with Dr. Hartmann. Coding Level of Care Code Est Pt Level 3 (52670) Complex EM visit Add On G2211 Diagnoses Tendinitis of right rotator cuff M75.81
[2024-10-22 14:57] VITALS: BMI 30.5
== END 2024-10-22 15:13 | disposition home or self-care (01) ==
LOC: HO.HOS 14:40
PROVIDERS: PCP Internal Medicine; Visit Provider Physician Assistant
DX: M75.81 Other shoulder lesions, right shoulder (principal)
CPT/HCPCS: 99213

== ENCOUNTER 2024-12-06 16:42 | Emergency (ER) | payer BC, SELFPAY ==
--- NOTE | ~2024-12-06 | XR_ITS ---
CLINICAL HISTORY: pain, injury 4 view right knee Comparison: None provided Findings: Bones intact. No dislocations. Minimal medial compartment joint space narrowing. No joint effusion. No radiopaque foreign body. IMPRESSION: 1. No acute findings. 2. Minimal medial compartment joint space narrowing. This document has been electronically signed by: Wesley Petty MD on 12/06/2024 17:41:40
--- NOTE | ~2024-12-06 | US_ITS ---
CLINICAL HISTORY: concern for DVT Venous duplex ultrasound right lower extremity Comparison: None provided Findings: The visualized deep veins are fully compressible with normal Doppler color flow and spectral tracings. No popliteal cyst. IMPRESSION: 1. Negative for right lower extremity deep vein thrombosis. This document has been electronically signed by: Wesley Petty MD on 12/06/2024 21:01:10
[2024-12-06 17:08] VITALS: BP 194/107; PULSE 100; RESP 16; TEMP 37.1; O2SAT 96; BMI 31.3
--- NOTE | 2024-12-06 17:09 | ED_ITS ---
HPI - General Adult General Chief complaint: Extremity Injury, Lower Stated complaint: rt knee swelling, felt something snap Time Seen by Provider: 12/06/24 21:40 Source: patient Mode of arrival: ambulatory Limitations: no limitations History of Present Illness ED Provider: ANNA DIGGS PA-C HPI narrative: 49-year-old male with pmhx significant for MAVIS presents to the ED today for evaluation of 1 week of right knee pain/swelling. He states that 1 week ago, he stood up to close the blinds when he felt a click in his right knee. Reports pain and swelling since this time. Admits swelling extends [facility] down his lower leg. States his knee clicks when he walks. He states the pain worsened approx 2 hours prior to arrival when he was attempting to wash his dog. He has been taking Motrin at home without relief. His last dose was this morning. Denies blunt injury or trauma. Denies fever, chills, chest pain, palpitations, SOB. Patient noted to be quite hypertensive on arrival. He states his blood pressure typically elevates while in the hospital. He does not have a formal diagnosis of hypertension. He is not currently on any medications for this. Asymptomatic. Related Data Previous Rx's ?Medication ?Instructions ?Recorded bupropion HCl 150 mg tablet,12 hr 150 mg PO BID #60 ta bs 08/17/24 sustained-release (Wellbutrin SR) lorazepam 0.5 mg tablet 0.5 mg PO BEDTIME PRN anxiet y #10 08/17/24 tabs celecoxib 200 mg capsule (Celebrex) 200 mg PO BID 30 d ays #60 caps 10/04/24 Allergies Allergy/AdvReac Type Severity Reaction Status Date / Time No Known Allergies Allergy Verified 12/06/24 17:10 Review of Systems 2 Review of Systems: Yes all other systems are reviewed and are negative PMFSH Past Medical History Attestation statement: The following information was validated with the patient. 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 Skin: Warm, dry, intact. No rashes or lesions. Head: Normocephalic, atraumatic. EENT: Hearing is intact b/l. Conjunctiva clear. Sclera is anicteric. PERRLA. EOM intact. Moist mucous membranes.? Cardiac: Chest wall symmetric. RRR Lungs: Normal respiratory effort without accessory muscle use. CTA bilaterally Ext: +noted swelling to right knee. no overlying erythema or deformity. full active ROM intact to R knee. diffusely ttp without crepitus, flutuance, deformity, warmth. there is 1+ pitting edema from knee to mid oliveira. ttp of right calf. Neuro: AOx3. Normal speech. Ambulating with limping gait. Course Course Course Narrative: Rapid medical examination performed in triage by Venita Galaviz PA-C. Patient is a 49 year old assigned male at presenting to the emergency department with right knee pain. Patient states he laid down and felt his right knee pop and has since had pain. Detailed physical exam and review of systems are deferred to the lens coating technician. Imaging ordered. Patient placed back in the waiting room pending room availability and results. Reevaluation(s) Reevaluation #1: X-ray right knee showing minimal medial compartment joint space narrowing. No acute fracture. No joint effusion. Venous duplex negative for DVT. No popliteal cyst. > labs pending > Toradol ordered for pain control 2323 -- CBC without leukocytosis or left shift. H&H stable. Chemistry without acute electrolyte abnormality requiring intervention. No SHERI. Uric acid WNL. > exam concerning for meniscal injury. stable. nigel wrap applied. declining crutches. educated on RICE therapy and outpatient follow up. Patient has remained stable throughout ED visit today. Discussed worrisome signs and symptoms and when to return to the ED. All questions answered at this time. Patient is agreeable with disposition and stable for discharge. Medications Administered Discontinued Medications Generic Name Dose Route Start Last Admin Trade Name Freq PRN Reason Stop Dose Admin Ketorolac Tromethamine 30 mg 12/06/24 22:26 12/06/24 22:52 Ketorolac Tromethamine 30 Mg/Ml Vial IM 12/06/24 22:27 30 mg ONCE ONE Administration Procedures Orthopedic Splinting/Casting Injury #1: Side: right Lower Extremity Injury Location: knee Lower Extremity Immobilizer: Nigel wrap Medical Decision Making Medical Decision Making MDM Narrative: 49-year-old male with pmhx significant for MAVIS presents to the ED today for evaluation of 1 week of right knee pain/swelling. Initially hypertensive to 194/107, improved to 160/96 without intervention. on exam, noted swelling to right knee. no overlying erythema or deformity. full active ROM intact to R knee. diffusely ttp without crepitus, flutuance, deformity, warmth. there is 1+ pitting edema from knee to mid oliveira. ttp of right calf. Differential diagnosis includes ligamentous injury, meniscal injury, tendonitis, bursitis, osteoarthritis, dependent edema, DVT, Chatman's cyst Less likely septic arthritis, gout, pseudoout, compartment syndrome, neurovascular compromise, threat to limb. X-rays and venous duplex ordered prior to my assumption of care, will add on screening labs and uric acid. Toradol ordered for pain control. Differential Diagnosis Differential Diagnoses: The differential diagnosis associated with the presentation includes as above. Admission/Observation Not indicated Lab Data MDM Lab Attestation statement: I reviewed the patient's lab results. As above 12/06/24 22:43 12/06/24 22:43 Labs: Lab Results 12/06/24 Range/Units 22:43 WBC 7.8 (4.8-10.8) X10*3/uL RBC 4.47 L (4.60-5.80) X10*6/uL Hgb 14.1 (14.0-18.0) g/dl Hct 41.0 L (42.0-52.0) % MCV 91.7 (80.0-98.0) fL MCH 31.5 (27.0-33.0) pg MCHC 34.4 (31.0-36.0) g/dl RDW 13.2 (11.0-16.0) % Plt Count 352 (160-400) X10*3/uL MPV 8.9 L (9.4-12.4) fL Immature Gran % (Auto) 0.3 (0.0-0.4) % Neut % (Auto) 53.8 (45-73) % Lymph % (Auto) 33.9 (20-40) % Archuleta % (Auto) 9.6 (2-11) % Eos % (Auto) 1.9 (0-4) % Baso % (Auto) 0.5 (0-2) % Lymph # (Auto) 2.6 (1.2-4.9) X10*3/uL Archuleta # (Auto) 0.8 (0.1-1.2) X10*3/uL Eos # (Auto) 0.2 (0.0-0.4) X10*3/uL Baso # (Auto) 0.0 (0.0-0.2) X10*3/uL Abs Immat Gran (auto) 0.02 (0.00-0.03) X10*3/uL Absolute Neuts (auto) 4.2 (2.0-8.3) x10*3/uL Absolute Nucleated RBC 0.000 (0.0-0.012) X10*3/uL Nucleated RBC % (auto) 0.0 (0.0-0.2) /100WBC Sodium 143 (135-145) mmol/L Potassium 4.2 (3.3-5.1) mmol/L Chloride 109 H (96-108) mmol/L Carbon Dioxide 26 (22-29) mmol/L Anion Gap 12 (12-20) BUN 17 H (9-16) mg/dL Creatinine 0.93 (0.5-1.4) mg/dL Estim Creat Clear Calc 98.7 Estimated GFR > 60 Random Glucose 99 (60-115) mg/dL Uric Acid 5.1 (3.4-7.0) mg/dL Calcium 9.2 (8.4-10.2) mg/dL Independent Interpretation I performed an independent interpretation of an: Plain X-Ray Interpretation: X-ray right knee without fracture Venous duplex right lower extremity without clot Radiology Impression Discussion of test interpretation with radiology: I have reviewed the radiologist's reading. Radiologist Impression: Date of Service: 12/06/24 Procedure(s): US venous duplex LE RT Accession Number(s): [id number] cc: Venita Galaviz; Tarah Jimenez MD~ Reason for Exam: concern for DVT CLINICAL HISTORY: concern for DVT Venous duplex ultrasound right lower extremity Comparison: None provided Findings: The visualized deep veins are fully compressible with normal Doppler color flow and spectral tracings. No popliteal cyst. IMPRESSION: 1. Negative for right lower extremity deep vein thrombosis. This document has been electronically signed by: Wesley Petty MD on 12/06/2024 21:01:10 Procedure(s): XR knee RT 4V Accession Number(s): [id number] cc: Venita Galaviz; Tarah Jimenez MD~ Reason for Exam: pain, injury CLINICAL HISTORY: pain, injury 4 view right knee Comparison: None provided Findings: Bones intact. No dislocations. Minimal medial compartment joint space narrowing. No joint effusion. No radiopaque foreign body. IMPRESSION: 1. No acute findings. 2. Minimal medial compartment joint space narrowing. This document has been electronically signed by: Wesley Petty MD on 12/06/2024 17:41:40 Independent Historian Clinical information obtained from an independent historian. History obtained from or confirmed by: Spouse External Record Review External record reviewed: Inpatient record Prescription Management I considered prescription management with: Pain Medication Social Determinants Patient?s care significantly limited by Social Determinants of Health including: Other Social Determinant of Health Critical Care Time Critical Care Time Critical Care Time: No Discharge Plan Discharge Clinical Impression: Right knee sprain Patient Disposition: Home, Self-Care Additional Instructions: You were evaluated in the ED today for right knee pain/swelling. You were blood work is reassuring. Your uric acid levels are normal. The x-ray of your right knee does not demonstrate fracture. The ultrasound of your right leg does not demonstrate acute clot or cyst. I have concern for possible meniscal injury. Utilize RICE therapy. See home care instructions. Take tylenol/motrin at home as needed for pain. Follow up with PCP or orthopedic provider outpatient. Return with any new or worsening symptoms. In the case of an emergency call 911. Prescriptions: No Action celecoxib [Celebrex] 200 mg capsule 200 mg PO BID 30 Days Qty: 60 3RF lorazepam 0.5 mg tablet 0.5 mg PO BEDTIME PRN (Reason: anxiety) Qty: 10 0RF Rx Instructions: LIMITED TO 2 WEEKS ONLY bupropion HCl [Wellbutrin SR] 150 mg tablet sustained-release 12 hr 150 mg PO BID Qty: 60 1RF Referrals: [facility] [place] Orthopedic Surgeons [Provider Group] Tarah Jimenez MD [Primary Care Provider, Internal Medicine] Stand Alone Forms: Work/School Release Print Language: Jordanian
[2024-12-06 22:16] VITALS: BP 160/96; PULSE 76; RESP 16; TEMP 36.7; O2SAT 98
--- OUTSIDE RECORDS SUMMARY | 2024-12-06 22:16 | XMS_ITS | Clinical Summary ---
Author Organization [facility] it Address [address] [place] [address] Care Team Providers Care Publication Distributor Name Role Phone Unavailable Primary Care Provider [...] of 3 - 19+ 3-dose series) 1993 Depression Screening 03/10/2024 Pneumococcal Vaccine: 50+ Ye ars (1 of 1 - PCV) 2024 Zoster Vaccines (1 of 2) 2024 COVID-19 Vaccine (1 - 2023-2 5 season) 2024 Influenza Vaccine (#1) 2024 HIB Vaccines [...]
[2024-12-06 22:48] LABS: MANUAL DIFF FLAG NO
[2024-12-06 22:49] LABS: Hematocrit 41.0 % (42.0-52.0); Hemoglobin 14.1 g/dl (14.0-18.0); Imm Gran Abs Auto 0.02 X10*3/uL (0.00-0.03); Imm Gran Pct Auto 0.3 % (0.0-0.4); Lymphocytes Absolute Auto 2.6 X10*3/uL (1.2-4.9); Mean Corpuscular HGB Conc 34.4 g/dl (31.0-36.0); Mean Corpuscular Hemoglobin 31.5 pg (27.0-33.0); Mean Corpuscular Volume 91.7 fL (80.0-98.0); NRBC Abs Auto 0.000 X10*3/uL (0.0-0.012); NRBC Pct Auto 0.0 /100WBC (0.0-0.2); Platelet Count 352 X10*3/uL (160-400); Red Blood Count 4.47 X10*6/uL (4.60-5.80); White Blood Count 7.8 X10*3/uL (4.8-10.8)
[2024-12-06 23:06] LABS: Anion Gap 12 (12-20); Blood Urea Nitrogen 17 mg/dL (9-16); Calcium 9.2 mg/dL (8.4-10.2); Carbon Dioxide 26 mmol/L (22-29); Chloride 109 mmol/L (96-108); Creatinine Clr Calc Pharmacy 98.7; Estimated Glomerular Filt Rate > 60; Potassium 4.2 mmol/L (3.3-5.1); Sodium 143 mmol/L (135-145); Uric Acid 5.1 mg/dL (3.4-7.0)
[2024-12-06 23:39] VITALS: BP 160/96; PULSE 76; RESP 16; TEMP 36.7; O2SAT 98
== END 2024-12-06 23:40 | disposition home or self-care (01) ==
PROVIDERS: Physician Assistant Medical; Emergency Provider Student in an Organized Health Care Education/Training Program; PCP Internal Medicine
DX: S83.91XA Sprain of unspecified site of right knee, initial encounter (principal); X50.1XXA Overexertion from prolonged static or awkward postures, initial encounter; Y93.89 Activity, other specified; Y92.098 Other place in other non-institutional residence as the place of occurrence of the external cause; Y99.8 Other external cause status
CPT/HCPCS: 36415; 73564; 80048; 84550; 85025; 93971; 99284; J1885

== ENCOUNTER → 2024-12-06 17:10 | Outpatient (BNV) | payer BC, SELFPAY | PROVIDERS: PCP Internal Medicine; Visit Provider Radiology Vascular & Interventional Radiology | DX: S89.91XA Unspecified injury of right lower leg, initial encounter (principal); W22.8XXA Striking against or struck by other objects, initial encounter | CPT/HCPCS: 73564; 93971 ==

== ENCOUNTER 2024-12-10 15:04 | Outpatient (AMB) | payer BC, SELFPAY ==
--- OUTSIDE RECORDS SUMMARY | 2024-12-10 15:09 | XMS_ITS | Clinical Summary ---
Author Organization [facility] ity Address [address] [place] [address] Care Team Providers Care Portfolio Manager Name Role Phone Unavailable Primary Care Provider [...] 5 season) 2024 Influenza Vaccine (#1) 2024 RSV Immunization Adult Patie nts (1 - 1-dose 75+ series) 2049 HIB Vaccines Aged Out No longer eligi [...]
--- NOTE | 2024-12-10 15:19 | A.OFFPC_ITS ---
Vital Signs 12/10/24 15:20 Height 5 ft 6 in Weight 193 lb BMI 31.1 BP 162/82 H Blood Pressure Location Lt brachial Position Sitting Pulse 92 Pulse Source Pulse Oximeter Pulse Oximetry (%) 98 Oxygen Delivery Method Room Air Intake Visit Reasons: [facility] 12/06/24 Allergies No Known Allergies Allergy (Verified 12/10/24 15:22) Medication List - Last Reconciled 12/10/24 by Tarah Jimenez MD bupropion HCl SR (Wellbutrin SR) 150 mg PO BID celecoxib (Celebrex) 200 mg PO BID 30 days diclofenac sodium 1% (Arthritis Pain (diclofenac)) 4 grams topical QID lorazepam 0.5 mg PO BEDTIME PRN Tobacco use date assessed: 08/17/24 Dental Screening Dental Screen Date: 08/17/24 HPI [facility] 12/06/24 HPI Details Patient comes in dragging right foot having difficulty in walking as well as bending. Complains of pain on the right posterior knee as well as in front having a mild edema of the D to the oliveira area no redness noted patient states was bending down and heard a pop on the right knee. X-rays and ultrasound done in the ER with no DVT and no fractures. [facility] Medical History Degenerative joint disease (DJD) of hip Degenerative joint disease, shoulder, right Right groin pain Obesity Anxiety Right inguinal hernia Surgical History History of right inguinal hernia repair Family History Mother Hypertension Anxiety Social History Housing: House Alcohol intake: current Alcohol intake frequency: holidays/special occasions only Comment: 3-4 x a month 3-4 beers Patient Tobacco Use Status: Current everyday Tobacco user Tobacco use type: Cigarette Cigarette Packs Per Day: 2 Cigarettes Per Day: 40 Years Smoked: started 2022- pack a day. 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 Cognitive needs: No Hearing needs: No Vision needs: Yes Questionnaire Thrive Questionnaire Date Thrive assessed: 08/09/24 I am a: Patient What is your living situation today?: I have a steady place to live Within the past 12 months, did the food you bought not last and you didn't have the money to get more?: Often true Within the past 12 months, did you worry whether your food would run out before you got money to buy more?: Often true Do you have trouble paying for medicines?: Yes Do you have trouble getting transportation to medical appointments?: Yes Do you have trouble paying your heating and electricity bill?: Yes Do you have trouble taking care of your child, family member or friend?: No Do you have trouble with day-to-day activities such as bathing, preparing meals, shopping, managing finances, etc.?: No Are you currently unemployed and looking for a job?: No Are you interested in more education?: No Currently or been in a relationship where the following occur: I choose not to answer THRIVE Score: 4 MAVIS-7 AMB Questionnaire MAVIS-7 Date MAVIS - 7 assessed: 08/17/24 Source: Developed by Drs. Jun Bright, Any Irvin, Sanya Bill and colleagues, with an educational hemant from [employer]. Physical exam (Primary Care) Vital Signs: Last Vital Signs Pulse 92 12/10/24 15:20 BP 162/82 H 12/10/24 15:20 Pulse Ox 98 12/10/24 15:20 Oxygen Delivery Method Room Air 12/10/24 15:20 BMI result Body Mass Index 31.1 Tobacco/Smoking Status: Tobacco use Status Tobacco use date assessed 08/17/24 12/10/24 15:27 Patient Tobacco Use Status Current everyday Tobacco 12/10/24 15:27 Tobacco use type Cigarette 12/10/24 15:27 e-Cigarette/Vaping Use Never Used 12/10/24 15:27 Thrive Assessment: Date of Thrive Assessment Date Thrive assessed 08/09/24 12/10/24 15:27 Currently or been in a relationship where the following occur: I choose not to answer Const General: alert; No acute distress Eyes Conjunctivae: conjunctivae normal Resp Auscultation: clear to auscultation bilaterally Cardio Rate: regular rate Rhythm: regular rhythm GI Inspection: Yes normal to inspection Extrem Other: Pain on the right lateral posterior knee with mild swelling of the knee tenderness also on the anterior area mild swelling noted on the oliveira area of the middle of the right leg General: Yes edema Coding Level of Care Code Est Pt Level 4 (93855) Complex EM visit Add On G2211 Diagnoses Right knee pain M25.561 Tendinitis of right rotator cuff M75.81 Tobacco abuse Z72.0 Assessment & Plan Assessment & Plan (1) Right knee pain: Code(s): M25.561 - Pain in right knee Category: Medical Plan: X-ray has been negative on Celebrex pain (2) Tendinitis of right rotator cuff: Code(s): M75.81 - Other shoulder lesions, right shoulder Category: Medical Plan: Patient is being followed up by orthopedics (3) Tobacco abuse: Code(s): Z72.0 - Tobacco use Category: Medical Plan: Patient is strongly advised to stop smoking Plan History of Present Illness The patient is a 49-year-old male presenting with right knee pain and tendinitis. The right knee pain began after the patient felt a click in the knee while standing, followed by swelling. An X-ray showed minimal medial compartment joint space narrowing with no acute fracture or joint effusion, and a DVT was ruled out. The patient was treated with Celebrex and was recently seen by orthopedics. The patient also reports tendinitis in the right shoulder, for which he was seen by orthopedics. The patient has a history of generalized anxiety disorder and is a smoker, which may impact his overall health and recovery. He has experienced a 6-pound weight gain recently and is classified as obese. Health Maintenance - Smoking cessation strongly advised Social History - Substance use: Smoker Review of Systems - Musculoskeletal: Reports right knee pain and swelling. Denies acute fracture or joint effusion. - General: Reports recent 6-pound weight gain. Physical Exam Results - X-ray: Minimal medial compartment joint space narrowing, no acute fracture, no joint effusion. - DVT: Negative Plan Patient was informed and verbally consented to the use of an ambient scribe for clinic note documentation during this visit. 1. Right Knee Pain The patient is experiencing right knee pain, which began after a click was felt in the knee while standing, followed by swelling. An X-ray showed minimal medial compartment joint space narrowing with no acute fracture or joint effusion, and a DVT was ruled out. The patient was treated with Celebrex and referred to orthopedics for further evaluation and management. 2. Tendinitis The patient has been diagnosed with tendinitis in the right shoulder and was seen by orthopedics for this condition. Management includes continued follow-up with orthopedics and potential use of anti-inflammatory medications. 3. Obesity The patient is classified as obese, with a recent 6-pound weight gain noted. Lifestyle modifications, including dietary changes and increased physical activi ty, are recommended to address obesity. 4. Generalized Anxiety Disorder The patient has a history of generalized anxiety disorder, which may impact his overall health and recovery. Management includes monitoring and addressing anxiety symptoms as part of the overall treatment plan. Discussion Notes I discussed with the patient the findings of the X-ray, which showed minimal medial compartment joint space narrowing without acute fracture or joint effusion. We talked about the treatment with Celebrex and the referral to orthopedics for further evaluation. I emphasized the importance of smoking cessation and discussed the potential impact of obesity and anxiety on his overall health. Patient Instructions - Continue taking Celebrex as prescribed, with food. - Follow up with orthopedics as scheduled. - Engage in lifestyle modifications to address obesity, including dietary changes and increased physical activity. - Strongly consider smoking cessation to improve overall health. Orders: Orders MR knee RT wo con Today M25.561 - Pain in right knee PT Evaluation and Treatment Today M25.561 - Pain in right knee Referrals Orthopedics Referral M25.561 - Pain in right knee Medications: New diclofenac sodium 1% (Arthritis Pain (diclofenac)) apply to single knee, ankle, foot; for foot includes sole/toes/top of foot 4 grams topical QID 100 grams 2RF M25.561 - Pain in right knee
[2024-12-10 15:20] VITALS: BP 162/82; PULSE 92; O2SAT 98; BMI 31.1
== END 2024-12-10 17:30 | disposition home or self-care (01) ==
LOC: HO.HMCH 15:05
PROVIDERS: PCP Internal Medicine; Visit Provider Internal Medicine
DX: M25.561 Pain in right knee (principal); M75.81 Other shoulder lesions, right shoulder; Z72.0 Tobacco use

== ENCOUNTER 2024-12-30 08:20 | Outpatient (REF) | payer BC, SELFPAY ==
--- NOTE | ~2024-12-30 | XR_ITS ---
CLINICAL HISTORY: M25.569 - Pain in unspecified knee --- Additional Notes or Special Instructions: lila salgado sunrise 2 view right knee and 1 view bilateral knee standing Comparison: CR - XR KNEE RT 4V - 12/06/24 17:28 EDT Findings: No acute fracture or dislocation is identified. Bilateral femorotibial joint spaces are preserved. Soft tissue structures appear within normal limits. IMPRESSION: Negative radiographic examination of bilateral knees. This document has been electronically signed by: Crystal Torres on 12/31/2024 10:11:39
--- OUTSIDE RECORDS SUMMARY | 2024-12-30 08:40 | XMS_ITS | Clinical Summary ---
Author Organization [facility] ity Address [address] [place] [address] Care Team Providers Care Board Finisher Name Role Phone Unavailable Primary Care Provider [...]
== END 2024-12-30 08:21 | disposition home or self-care (01) ==
LOC: HO.HOSX 08:20
PROVIDERS: Visit Provider Physician Assistant
DX: M23.91 Unspecified internal derangement of right knee (principal); M17.11 Unilateral primary osteoarthritis, right knee
CPT/HCPCS: 73560

== ENCOUNTER 2024-12-30 08:42 | Outpatient (AMB) | payer BC, SELFPAY ==
--- NOTE | 2024-12-30 08:46 | A.OFFVIS_ITS ---
Vital Signs 12/30/24 08:53 Height 5 ft 6 in Weight 193 lb BMI 31.1 Intake Visit Reasons: Newprob-right knee sprain - DOI 12/03/24 Intake Note: Gio is a 49 year old male who presents today as an established patient, new problem visit to evaluate right knee sprain, DOI 12/03/24. Patient seen at [facility] with complaints of pain and swelling after he stood up, he felt a click in his knee. Today patient reports his swelling has improved, he continues to have pain with walking, turning or twisting of knee and applying pressure. Reports he feels his knee snap multiple times a day.He works at [employer] and is usually most of the day on his feet. He has numbness occasionally in his toes. Allergies No Known Allergies Allergy (Verified 12/30/24 08:56) Medication List - Last Reconciled 12/30/24 by Cornelius Rmaos PA-C celecoxib (Celebrex) 200 mg PO BID 30 days diclofenac sodium 1% (Arthritis Pain (diclofenac)) 4 grams topical QID HPI HPI Newprob-right knee sprain - DOI 12/03/24: Details: 49 yo male presents to the office today for right knee pain. States on 12/03/24 he had an incident where he bent down he felt a snap in the knee and immediate pain with swelling. He was seen in the ED and referred to our office for ortho eval. States he continuously gets locking and catching in the knee with twisting and pivoting motions. He also feels like the knee is going to give way when he applies pressure. 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 He has full range of motion with crepitus. Has significant tenderness medial and laterally. He has a positive Jd's. Calf is supple and nontender neurovascularly intact. Results Reviewed Results Reviewed: X-rays of the right knee obtained in the office today and reviewed by me show mild medial compartment and patellofemoral compartment arthritis Assessment & Plan Assessment & Plan (1) Internal derangement of right knee: Code(s): M23.91 - Unspecified internal derangement of right knee Category: Medical Plan: The patient was fit for a Genumed knee brace to help with stability. I recommend an MRI of the right knee to further evaluate the integrity of the meniscus given his catching and locking symptoms and pain on exam. Once the scan is complete we will contact him to discuss the next step in his treatment. The patient is content with this plan. Orders: Orders XR knee RT 2V Today M25.569 - Pain in unspecified knee MR knee RT wo con Today M17.11 - Unilateral primary osteoarthritis, right knee, M23.91 - Unspecified internal derangement of right knee Coding Level of Care Code Est Pt Level 3 (84855) Complex EM visit Add On G2211 Diagnoses Internal derangement of right knee M23.91
[2024-12-30 08:53] VITALS: BMI 31.1
== END 2024-12-30 09:59 | disposition home or self-care (01) ==
LOC: HO.HOS 08:43
PROVIDERS: PCP Internal Medicine; Visit Provider Physician Assistant
DX: M23.91 Unspecified internal derangement of right knee (principal)
CPT/HCPCS: 99213

== ENCOUNTER → 2024-12-30 08:44 | Outpatient (BNV) | payer BC, SELFPAY | PROVIDERS: Visit Provider Radiology Vascular & Interventional Radiology | DX: M25.561 Pain in right knee (principal) | CPT/HCPCS: 73560 ==

== ENCOUNTER → 2025-02-12 08:19 | Outpatient (BNV) | payer BC, SELFPAY | PROVIDERS: PCP Internal Medicine; Visit Provider Radiology Diagnostic Ultrasound | DX: M23.221 Derangement of posterior horn of medial meniscus due to old tear or injury, right knee (principal); M25.461 Effusion, right knee | CPT/HCPCS: 73721 ==

== ENCOUNTER 2025-02-12 08:30 | Outpatient (REF) | payer BC, SELFPAY ==
--- NOTE | ~2025-02-12 | MR_ITS ---
EXAMINATION: MR KNEE WITHOUT CONTRAST, RIGHT CLINICAL INFORMATION: Knee pain COMPARISON: X-ray 12/30/2024 TECHNIQUE: MRI of the knee without contrast was performed using routine sequences on a high-field scanner. FINDINGS: MENISCI: Medial Meniscus: Degenerative signal in the peripheral posterior horn, with mild peripheral and peripheral tibial articular surface fraying. No tear is otherwise seen. Lateral Meniscus: Intact LIGAMENTS: Cruciate: Intact Collateral: Intact EXTENSOR MECHANISM: Intact ARTICULAR CARTILAGE/BONE: Patellofemoral Compartment: Mild patellofemoral arthritis. Chondral thinning and irregularity in the trochlea. Medial Compartment: Minimal arthritis. Chondromalacia in the weightbearing femoral condyle. Lateral Compartment: No significant chondral loss. No fracture. No aggressive marrow replacing lesion. JOINT FLUID AND BURSAE: Small effusion. No significant Chatman's cyst. MR/MR knee RT wo con IMPRESSION: 1. Mild peripheral degenerative fraying in the posterior horn of the medial meniscus. 2. Mild patellofemoral and medial compartment arthritis 3. Small effusion. Electronically signed by: Catarino Cochran MD 02/14/2025 07:54 AM EST
--- OUTSIDE RECORDS SUMMARY | 2025-02-12 08:32 | XMS_ITS | Clinical Summary ---
Author Organization [facility] ity Address [address] [place] [address] Care Team Providers Care Traffic Technician Name Role Phone Unavailable Primary Care Provider [...] Vaccines (1 of 2) 2024 COVID-19 Vaccine ( - 2024-2 6 season) 2024 Influenza Vaccine (#1) 2024 RSV [...]
== END 2025-02-12 08:31 | disposition home or self-care (01) ==
LOC: HO.MRI 08:30
PROVIDERS: PCP Internal Medicine; Visit Provider Internal Medicine
DX: M25.561 Pain in right knee (principal)
CPT/HCPCS: 73721

== ENCOUNTER 2025-02-14 08:32 | Outpatient (AMB) | payer BC, SELFPAY ==
[2025-02-14 08:37] VITALS: BMI 31.1
--- NOTE | 2025-02-14 08:37 | MHC.OFFVIS ---
Vital Signs 02/14/25 08:37 Height 5 ft 6 in Weight 193 lb BMI 31.1 Intake Visit Reasons: OV- brace fitting right knee Intake Note: Gio 49 yr old male presents today for a brace fitting for his Internal derangement of right knee. States brace is a little too tight and states the plastic beads on the inside of the brace are digging into his skin and had redness around in area. Also states he has increase swelling and might have fluid in knee. States he had his MRI done Friday. Allergies No Known Allergies Allergy (Verified 02/14/25 08:41) HPI HPI OV- brace fitting right knee: Details: 49-year-old gentleman returns to the office today for his right knee. He had an MRI of the right knee. He continues to have some discomfort along the medial aspect of the knee with prolonged standing and bending. Was fit for a Genumed knee brace at his last appointment however developed a reaction to the brace which cause burning and a rash. 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 He has full range of motion with crepitus. Mild discomfort along the medial joint line.. Calf is supple and nontender neurovascularly intact. Office Procedures AMB Joint Injection/Aspiration Joint Injection/Aspiration Primary Site: Right Knee Prep: site was prepped using aseptic technique, ethochloride spray was applied and injection warnings given Injected: 40 mg of, Decadron, with 3 mL of, 1% plain Lidocaine, 0.25% Bupivacaine and in the joint Approach Used: anterolateral Procedure: The patient tolerated the procedure well and there was some relief with the local anesthesia Coding 40653 - Glenohumeral/Tronchanteric Bursa/Intraarticular Procedure code (CPT) selection complete Results Reviewed Results Reviewed: MR knee RT wo con IMPRESSION: 1. Mild peripheral degenerative fraying in the posterior horn of the medial meniscus. 2. Mild patellofemoral and medial compartment arthritis 3. Small effusion. Assessment & Plan Assessment & Plan (1) Primary osteoarthritis of right knee: Code(s): M17.11 - Unilateral primary osteoarthritis, right knee Category: Medical Plan: The patient was fit for a new brace in the office today to help with stability. We also discussed the findings on his MRI which is significant for some degenerative fraying of the meniscus. We discussed options which include steroid injection which she would like to proceed with. The right knee was injected today with steroid which she tolerated well. He will continue with activities as tolerated and if symptoms persist or worsen over the next 8-12 weeks she can contact our office otherwise follow up as needed. Coding Level of Care Code Est Pt Level 3 (56834) Complex visit Add On G2211 Diagnoses Primary osteoarthritis of right knee M17.11 CPT Codes Coding - Joint 7: 17219 - Glenohumeral/Tronchanteric Bursa/Intraarticular ([id number])
== END 2025-02-14 09:05 | disposition home or self-care (01) ==
LOC: HO.HOS 08:33
PROVIDERS: PCP Internal Medicine; Visit Provider Physician Assistant
DX: M17.11 Unilateral primary osteoarthritis, right knee (principal)
CPT/HCPCS: 20610; 99213

== ENCOUNTER → 2025-02-14 08:32 | Outpatient (BNVA) | payer BC, SELFPAY | PROVIDERS: PCP Internal Medicine; Visit Provider Physician Assistant | DX: M17.11 Unilateral primary osteoarthritis, right knee (principal) | CPT/HCPCS: 20610; J0665; J1100; J2003 ==